=== PATIENT | female | born 1960 | race Caucasian/White ===

== ENCOUNTER 2018-10-21 09:24 | Inpatient (IN) ==
[2018-10-21] MEDS ORDERED: SODIUM CHLORIDE 0.9% 1000ML 2,000 ML IV SCH (09:45)
--- NOTE | 2018-10-21 09:53 | XRay Report ---
XR chest 1V portable HISTORY: Atypical Chest Pain COMPARISON: None. FINDINGS: Old, healed right-sided rib fractures. The lungs are clear. The heart is normal in size. No pleural effusions. No pneumothorax. IMPRESSION: No acute process. Electronically signed by: Alli Loomis M.D. 10/21/2018 9:52 AM
[2018-10-21 10:02] LABS: Hematocrit (blood only) 38.3 % (37-47); Hemoglobin 12.8 g/dL (12.0-16.0); Mean Corpuscular Hgb Conc 33.4 g/dL (32-36); Mean Corpuscular Volume 92.7 fL (80-100); Mean Platelet Volume 8.7 fL (7.4-10.4); Platelet Count 808 K/uL (130-400); RDW Coefficient of Variation 13.4 % (11.5-14.5); RDW Standard Deviation 45.2 fL (36.4-46.3); Red Blood Count 4.13 M/uL (4.2-5.4); White Blood Count 23.89 K/uL (4.8-10.8)
[2018-10-21 10:14] LABS: INR 1.2 (0.9-1.1); Prothrombin Time 12.4 Seconds (9.0-12.0)
[2018-10-21] MEDS ORDERED: ACETAMINOPHEN 1,000 MG/100 ML VIAL IV STA (10:20)
[2018-10-21] MEDS ORDERED: FAMOTIDINE 20MG IV PUSH 20 MG/5 ML SYR IV STA (10:20)
[2018-10-21] MEDS ORDERED: PROCHLORPERAZINE 2 ML IV ONE (10:20)
[2018-10-21 10:22] LABS: Basophils # (auto) 0.03 K/uL (0-0.2); Basophils % (auto) 0.1 %; Eosinophils # (auto) 0.02 K/uL (0-0.5); Eosinophils % (auto) 0.1 %; Immature Granulocytes # (auto) 0.38 K/uL (0.00-0.02); Immature Granulocytes % (auto) 1.6 %; Lymphocytes # (auto) 2.27 K/uL (1.2-3.4); Lymphocytes % (auto) 9.5 %; Monocytes # (auto) 0.62 K/uL (0.11-0.59); Monocytes % (auto) 2.6 %; Neutrophils # (auto) 20.57 K/uL (1.4-6.5); Neutrophils % (auto) 86.1 %
[2018-10-21 10:23] LABS: Alanine Aminotransferase 13 U/L (12-78); Aspartate Aminotransferase 10 U/L (15-37); BUN Creatinine Ratio 15.8 (10-20); Bilirubin Direct < 0.1 mg/dl (0-0.2); Blood Urea Nitrogen 25 mg/dl (7-18); Calcium 9.6 mg/dl (8.5-10.1); Carbon Dioxide 24 mmol/L (21-32); Chloride 105 mmol/L (98-107); Creatinine Clr Calc Pharmacy 38.4 ml/min; Est GFR (African American) 40.5; Est GFR (Non-African American) 34.9; Glucose 154 mg/dl (70-99); Magnesium 2.3 mg/dl (1.8-2.4); Potassium 4.8 mmol/L (3.5-5.1); Sodium 140 mmol/L (136-145)
[2018-10-21 10:32] LABS: Albumin Globulin Ratio 0.6 (0.9-2); Alkaline Phosphatase 83 U/L (45-117); Bilirubin,Total 0.4 mg/dl (0.2-1); Phosphorus 5.2 mg/dl (2.5-4.9); Troponin I 0.034 ng/ml (0-0.045)
[2018-10-21] MEDS ORDERED: IOVERSOL 100ml IV PRN (10:59)
--- NOTE | 2018-10-21 11:52 | CT Scan Report ---
CT SCAN OF THE ABDOMEN AND PELVIS WITH IV CONTRAST CLINICAL HISTORY: Generalized abdominal pain. COMPARISON STUDY: No priors. TECHNIQUE: Following the IV administration of 94 cc of Optiray 320, CT scan of the abdomen and pelvi s is performed from the lung bases to the proximal femora. Images are reviewed in the axial, sagittal , and coronal planes. IV contrast was administered without complication. A dose lowering technique wa s utilized adhering to the principles of ALARA. FINDINGS: Lung bases: The heart is normal in size and without pericardial effusion. Emphysematous change is not ed. Patchy ground glass consolidation and atelectasis are identified at the left lung base. The right lung base is clear. No pleural effusion is identified. There is a small hiatal hernia. Circumferenti al wall thickening is suggested in the distal esophagus. Intraluminal thrombus is noted within the di stal descending thoracic aorta. Liver: The contrast-enhanced liver is mildly enlarged measuring 19 cm in length. The liver is otherwi se normal in contour and attenuation. There is no intrahepatic biliary ductal dilatation. The hepatic veins and portal veins are patent. Gallbladder: Unremarkable. Spleen: Normal in size and attenuation. Pancreas: Unremarkable. Adrenal glands: There is mild nodularity of the adrenal glands. Kidneys: The contrast enhanced kidneys are normal in size and without hydronephrosis. The kidneys enh ance symmetrically. 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 Abdominal vasculature: The abdominal aorta is normal in course and caliber noting mild to moderate at herosclerotic calcification. Bowel: There is mild colonic fecal retention. No bowel obstruction is seen. The appendix is well-vis ualized and normal. Peritoneum: There is no intraperitoneal free air or abdominal ascites. Lymphadenopathy: None. Pelvic viscera: Although decompressed, bladder wall thickening suggested. The uterus and adnexa are n ormal as imaged. Skeletal structures: A 3 cm sclerotic lesion is identified within the right ilium on image #[id number]. IMPRESSION: 1. There is patchy groundglass consolidation and atelectasis at the left lung base. Correlate clinica lly for evidence of a mild infectious/inflammatory pneumonitis. 2. Emphysema. 3. Although the bladder is decompressed the wall appears circumferentially thickened. Correlation wit h urinalysis will be required. 4. There is a 3 cm sclerotic lesion identified within the right ilium. This is pathologically indeter minant, and a metastatic lesion could have this appearance. Correlation with the patient's oncologica l history will be essential. If not recently performed consider mammography in follow-up. Nuclear bon e scan could also be considered. 5. There is a small hiatal hernia with circumferential wall thickening suggested in the distal esopha orlando. Correlate clinically for evidence of esophagitis. 6. Additional findings as above. Electronically signed by: Nicholas Desir M.D. 10/21/2018 11:50 AM
[2018-10-21] MEDS ORDERED: DOXYCYCLINE HYCLATE 100 MG in DEXTROSE 5% 100 ML IV STA (11:56)
[2018-10-21] MEDS ORDERED: VANCOMYCIN CONSULT ACTIVE PRN ×2 (11:56→16:36)
[2018-10-21] MEDS ORDERED: VANCOMYCIN HCL 1,500 MG in SODIUM CHLORIDE 0.9% 500 ML IV ONE (11:56)
[2018-10-21] MEDS ORDERED: CEFEPIME 2,000 MG/20 ML VIAL IV STA (11:56)
--- NOTE | 2018-10-21 14:14 | History & Physical Report ---
Date of Service October 21, 2018 Assessment & Plan (1) Pneumonia: Left lower lobe. Healthcare associated. Obtain sputum culture if sputum is produced. Continue cefepime and vancomycin Present on Admission?: Yes (2) COPD exacerbation: IV steroids. Nebulizer treatments. Treat pneumonia Present on Admission?: Yes (3) Acute kidney injury: IV fluids. Monitor urine output. Serial lab studies Present on Admission?: Yes (4) Acute gastritis: Pepcid and Carafate treatment. Present on Admission?: Yes (5) Admitted to substance misuse detoxification center: Recent detoxification from Xanax (6) Drug dependence: Benzodiazepine dependence (7) DVT prophylaxis: Lovenox subcu History of Present Illness Chief Complaint: Productive cough, shortness of breath, wheezing Primary Care Provider: NO PCP 57-year-old female smoker with COPD. She was in route from a substance abuse treatment facility to [place] when she developed worsening shortness of breath and weakness. She has had a productive cough for several days and worsening wheezing and shortness of breath. She also has some nausea and vomiting for several days. No hematemesis melena or hematochezia. Chest x-ray is unremarkable but chest CT scan reveals evidence of left lower lobe pneumonia. This probably is healthcare associated pneumonia since she was recently detox facility. White count is 23,000. She is somewhat volume depleted with creatinine 1.6. She recently was on Levaquin for a sinus infection and ear infection. She has been started on cefepime and vancomycin. Sputum culture will be obtained. IV fluids will be administered to correct the acute kidney injury. She is admitted for further evaluation and treatment. Allergies Allergy/AdvReac Type Severity Reaction Status Date / Time Penicillins Allergy Hives Unverified 10/21/18 10:36 Home Medications Home Medications Medication Instructions Recorded Confirmed Type albuterol sulfate [Ventolin HFA] 1 puff INHALATION Q6H PRN 10/21/18 10/21/18 History cholecalciferol (vitamin D3) 2,000 unit PO BID 10/21/18 10/21/18 History citalopram [Celexa] 40 mg PO QAM 10/21/18 10/21/18 History clonidine HCl 0.1 mg PO HS 10/21/18 10/21/18 History cyclobenzaprine 10 mg PO DAILY 10/21/18 10/21/18 History folic acid 1 mg PO DAILY 10/21/18 10/21/18 History ipratropium-albuterol 3 ml INHALATION DAILY PRN 10/21/18 10/21/18 History levofloxacin 500 mg PO DAILY PRN 10/21/18 10/21/18 History menthol [Bengay Cold Therapy] 1 % TOPICAL DIRECTED PRN 10/21/18 10/21/18 History prazosin 2 mg PO QAM 10/21/18 10/21/18 History prednisone 50 mg PO DAILY 10/21/18 10/21/18 History thiamine HCl (vitamin B1) 100 mg PO DAILY 10/21/18 10/21/18 History trazodone 100 mg PO HS 10/21/18 10/21/18 History Past Med/Surg History Medical History Admitted to substance misuse detoxification center Drug dependence (Chronic) Family History Other No significant family history Social History marital status: Single Current Living Situation: Rehab Current Living Situation Comment: In transit to [facility] in [place] (10/21/18) current occupational status: unemployed Feels Safe at Home: Yes Smoking Status: Current some day smoker Review of Systems Review of Systems: Constitutional-no fever or chills ENT-no blurred vision, no double vision, no epistaxis, no sore throat Respiratory-productive cough, shortness of breath, wheezing. No heme Cardiac-no palpitations, no chest pain, no syncope GI-epigastric discomfort, nausea, vomiting. No hematemesis melena or hematochezia -no urinary retention, no urinary incontinence, no dysuria, no hematuria Musculoskeletal-no joint pain, no muscle tenderness Skin-no bruising, no rashes, no pruritus Neuro-no isolated weakness, no paresthesia, no weakness Psych-no depression, no anxiety Physical Exam Physical Exam: General-alert and oriented x3, no fevers, no chills HEENT-head atraumatic and normocephalic, TMs intact bilaterally, pupils equal and reactive to light, extraocular muscles intact Neck-no lymphadenopathy or thyromegaly, trachea midline Chest-midline rhonchi. Bilateral expiratory wheezes. No dullness to percussion Cardiac-regular rate and rhythm, normal S1 and S2, no murmurs Abdomen-normal bowel sounds, no hepatosplenomegaly. Nondistended. Mild epigastric tenderness Extremities-no cyanosis, clubbing, or edema Neuro-cranial nerves II through XII intact, motor and sensory function within normal limits, strength symmetrical 5/5, no focal deficits Psych-normal affect, normal mood Results & Data Vital Signs (Past 12 Hours) Vital Signs Temp Pulse Pulse Resp BP BP Pulse Ox 10/21/18 12:12 88 123/71 10/21/18 11:22 87 16 94/67 L 97 10/21/18 10:18 86 16 87/54 L 10/21/18 10:03 93 H 16 64/44 L 96 10/21/18 09:43 96 10/21/18 09:37 36.7 C 104 H 16 71/50 L 95 Laboratory Results 10/21/18 09:50 10/21/18 09:50 PG Care Time/CCT Total # of Minutes Spent Total Time Spent with Patient: Total time spent is greater than 50% in coordination of care (as documented) at patient's floor/unit and/or counseling patient: (1) Pneumonia Laterality: left Lung location: lower lobe of lung Pneumonia type: due to unspecified organism Qualified Code(s): J18.1 - Lobar pneumonia, unspecified organism
--- NOTE | 2018-10-21 15:16 | Emergency Department Note ---
Entered by Jennifer Billings acting as a scribe for History of Present Illness General Chief complaint: Illness Stated complaint: none Time Seen by Provider: 10/21/18 09:28 Source: patient and EMS History of Present Illness Onset (ago): week(s) 1 Location: abdomen Pain Consistency: + other (episode) Quality: + other (vomiting) Associated symptoms: + denies other symptoms (fever) and + other (abdominal pain, loss of appetite, decreased fluid intake) The patient is a 57 year old female with a history of substance dependence that is presenting to the Emergency Room with complaints of an episode of vomiting that occurred this morning. The patient was brought to the ED via EMS. EMS states that the patient was in route to a long term house in [place] following [facility]. EMS reports that the patient started vomiting and sweating in the van and that the residential recycle driver refused to continue until the patient sought medical care. EMS notes that the patient stated that she had not had any food or drink today prior to her trip. EMS states that the patient has reportedly not handled detoxification well. The patient reports that was in rehab for Xanax dependence. She states that she entered rehab on 09/25/18. She reports that she was detoxing prior to entering rehab. She states that she has had abdominal pain for the past week. The patient states that she has not been eating or drinking normally secondary to the abdominal pain. She notes that she has had an ear infection and sinus infection recently. She states that she is taking Levaquin and notes that she took some this morning as prescribed. She denies any fever currently. Home Medications Home Medications Medication Instructions Recorded Confirmed Type albuterol sulfate [Ventolin HFA] 1 puff INHALATION Q6H PRN 10/21/18 10/21/18 History cholecalciferol (vitamin D3) 2,000 unit PO BID 10/21/18 10/21/18 History citalopram [Celexa] 40 mg PO QAM 10/21/18 10/21/18 History clonidine HCl 0.1 mg PO HS 10/21/18 10/21/18 History cyclobenzaprine 10 mg PO DAILY 10/21/18 10/21/18 History folic acid 1 mg PO DAILY 10/21/18 10/21/18 History ipratropium-albuterol 3 ml INHALATION DAILY PRN 10/21/18 10/21/18 History levofloxacin 500 mg PO DAILY PRN 10/21/18 10/21/18 History menthol [Bengay Cold Therapy] 1 % TOPICAL DIRECTED PRN 10/21/18 10/21/18 History prazosin 2 mg PO QAM 10/21/18 10/21/18 History prednisone 50 mg PO DAILY 10/21/18 10/21/18 History thiamine HCl (vitamin B1) 100 mg PO DAILY 10/21/18 10/21/18 History trazodone 100 mg PO HS 10/21/18 10/21/18 History Allergies Allergy/AdvReac Type Severity Reaction Status Date / Time Penicillins Allergy Hives Unverified 10/21/18 10:36 Past Med/Surg History Medical History Acute gastritis (Acute) Acute kidney injury (Acute) COPD exacerbation (Acute) Pneumonia (Acute) Admitted to substance misuse detoxification center Drug dependence (Chronic) Family History Other No significant family history Social History Preferred Language: Romansh Communication Ability: Effective Line Repairer Required: No Beliefs That Will Affect Care: None marital status: Single Current Living Situation: Homeless [facility] [place] [facility] current occupational status: unemployed Other Information That Helps Us Care for You: No Feels Safe at Home: Yes Safety Concerns: Feels Safe At This Time Smoking Status: Current every day smoker Tobacco Type: cigarettes Cigarettes Per Day: 20 Do You Dip or Chew Tobacco: No Second Hand Exposure: No Tobacco Cessation Education Requested by Patient: No Hx Alcohol Use: No Hx Substance Use: No Review of Systems See HPI for pertinent positives & negatives. and A total of 10 systems reviewed and were otherwise negative Physical Exam Vital Signs Vital Signs - 24 hr 10/21/18 09:37 10/21/18 09:43 10/21/18 10:03 Temperature 36.7 C Temperature Source Oral Sepsis Recent Fever Within 48 Hours No Sepsis New/Unexplained Change in Mental Status No Sepsis Action Taken by Nursing No Action Required Pulse Rate 104 H Pulse Rate [Apical] 93 H Respiratory Rate 16 16 Blood Pressure 71/50 L Blood Pressure [Left Arm] 64/44 L Blood Pressure Mean 57 Blood Pressure Mean [Left Arm] 50 Pulse Oximetry 95 96 96 Oxygen Delivery Method Room Air Room Air Room Air 10/21/18 10:18 10/21/18 11:22 10/21/18 12:12 Temperature Temperature Source Sepsis Recent Fever Within 48 Hours Sepsis New/Unexplained Change in Mental Status Sepsis Action Taken by Nursing Pulse Rate Pulse Rate [Apical] 86 87 88 Respiratory Rate 16 16 Blood Pressure Blood Pressure [Left Arm] 87/54 L 94/67 L 123/71 Blood Pressure Mean Blood Pressure Mean [Left Arm] 65 76 88 Pulse Oximetry 97 Oxygen Delivery Method Room Air 10/21/18 14:00 Temperature Temperature Source Sepsis Recent Fever Within 48 Hours Sepsis New/Unexplained Change in Mental Status Sepsis Action Taken by Nursing Pulse Rate Pulse Rate [Apical] 85 Respiratory Rate 16 Blood Pressure Blood Pressure [Left Arm] 116/70 Blood Pressure Mean Blood Pressure Mean [Left Arm] 85 Pulse Oximetry 97 Oxygen Delivery Method Room Air GENERAL: Awake, alert, fatigued-ill appearing, in no distress HENT: Normocephalic, atraumatic. Oropharynx with dry mucous membranes and otherwise unremarkable. EYES: Normal conjunctiva. Sclera non-icteric. EOMI. No nystamgus. PEARRL. NECK: Supple. No nuchal rigidity. FROM. No JVD. RESPIRATORY: Clear to auscultation. CARDIAC: Regular rate, normal rhythm. Extremities warm and well perfused. Pulses equal. ABDOMEN: Soft, non-distended. Generalized abdominal tenderness. No rebound or guarding. No masses. RECTAL: Deferred. MUSCULOSKELETAL: Chest examination reveals no tenderness. The back is symmetrical on inspection without obvious abnormality. There is no CVA tenderness to palpation. No joint edema. LOWER EXTREMITIES: Calves are equal size bilaterally and non-tender. No edema. No discoloration. NEURO: Normal sensorium. No sensory or motor deficits noted. SKIN: No rash or jaundice noted. Course 0935:The patient was evaluated in room B11B. A complete history and physical examination was performed. 1244: I discussed the patients case with ELENA Reed, who will evaluate the patient for further management and care. 1300: Upon reevaluation, the patient is resting comfortably. I discussed laboratory and radiographic results with the patient. She verbalized agreement of the treatment plan. The patient will be evaluated for further management and care. Consultations Consultation #1: I discussed the patients case with Dr. Schrader, [facility], who will evaluate the patient for further management and care. Time: 12:44 Administered Medications Albuterol (Duoneb) 3 ml NEB QIDR ROSLYN Stop: 11/20/18 16:35 Last Admin: 10/21/18 16:54 Dose: 3 ml Documented by: [id number] Sodium Chloride (Nss 1000ml) 1,000 mls @ 100 mls/hr IV .Q10H ROSLYN Stop: 11/20/18 16:59 Last Admin: 10/21/18 16:50 Dose: 100 mls/hr Documented by: [id number] Ioversol (Optiray 320 100ml) 95 ml IV ONCE PRN PRN Reason: Interaction Checking Stop: 10/25/18 10:58 Last Admin: 10/21/18 10:59 Dose: 95 ml Documented by: [id number] Discontinued Medications Sodium Chloride (Nss 1000ml) 2,000 mls @ 999 mls/hr IV .Q2H1M ROSLYN Stop: 10/21/18 11:45 Last Infusion: 10/21/18 12:00 Dose: 0 mls/hr Documented by: [id number] Admin: 10/21/18 09:40 Dose: 999 mls/hr Documented by: [id number] Famotidine (Pepcid 20mg Iv Push) 20 mg in 5 mls @ 2.5 mls/min IV NOW STA Stop: 10/21/18 10:21 Last Admin: 10/21/18 10:43 Dose: 2.5 mls/min Documented by: [id number] Acetaminophen (Ofirmev) 1,000 mg in 100 mls @ 400 mls/hr IV NOW STA Stop: 10/21/18 10:34 Last Infusion: 10/21/18 10:58 Dose: 0 mls/hr Documented by: [id number] Admin: 10/21/18 10:43 Dose: 400 mls/hr Documented by: [id number] Prochlorperazine (Compazine) 2 mls @ 1 mls/min IV ONE ONE Stop: 10/21/18 10:21 Last Admin: 10/21/18 10:43 Dose: 1 mls/min Documented by: [id number] Doxycycline Hyclate 100 mg/ (Dextrose) 110 mls @ 50 mls/hr IV NOW STA Stop: 10/21/18 14:07 Last Infusion: 10/21/18 14:40 Dose: 0 mls/hr Documented by: [id number] Admin: 10/21/18 12:23 Dose: 50 mls/hr Documented by: [id number] Vancomycin HCl 1,500 mg/ (Sodium Chloride) 530 mls @ 200 mls/hr IV NOW ONE; Protocol Stop: 10/21/18 14:34 Last Infusion: 10/21/18 15:14 Dose: 0 mls/hr Documented by: [id number] Admin: 10/21/18 12:23 Dose: 200 mls/hr Documented by: [id number] Cefepime HCl (Maxipime) 2,000 mg in 20 mls @ 5 mls/min IV NOW STA; Protocol Stop: 10/21/18 11:59 Last Admin: 10/21/18 12:09 Dose: 5 mls/min Documented by: [id number] Medical Decision Making Differential Diagnosis Differential diagnosis: Etiologies such as appendicitis, diverticulitis, PUD, biliary pathology, UTI, pancreatitis, obstruction, mesenteric ischemia, aortic pathology, infections, inflammatory bowel disease, renal colic, as well as others were entertained. Medical Records Attestation: I reviewed the patient's medical records. Home Medications Current Medication List: was personally reviewed by me Laboratory Data Attestation: I reviewed the patient's lab results. Result diagrams: 10/21/18 09:50 10/21/18 09:50 Lab Results 10/21/18 10/21/18 10/21/18 Range/Units 09:50 09:50 09:50 WBC 23.89 H (4.8-10.8) K/uL RBC 4.13 L (4.2-5.4) M/uL Hgb 12.8 (12.0-16.0) g/dL Hct 38.3 (37-47) % MCV 92.7 (80-100) fL MCH 31.0 (25-34) pg MCHC 33.4 (32-36) g/dL RDW Std Deviation 45.2 (36.4-46.3) fL RDW Coeff of Uriah 13.4 (11.5-14.5) % Plt Count 808 H (130-400) K/uL MPV 8.7 (7.4-10.4) fL Immature Gran % (Auto) 1.6 % Neut % (Auto) 86.1 % Lymph % (Auto) 9.5 % Dyer % (Auto) 2.6 % Eos % (Auto) 0.1 % Baso % (Auto) 0.1 % Immature Gran # (Auto) 0.38 H (0.00-0.02) K/uL Neut # (Auto) 20.57 H (1.4-6.5) K/uL Lymph # (Auto) 2.27 (1.2-3.4) K/uL Dyer # (Auto) 0.62 H (0.11-0.59) K/uL Eos # (Auto) 0.02 (0-0.5) K/uL Baso # (Auto) 0.03 (0-0.2) K/uL PT 12.4 H (9.0-12.0) Seconds INR 1.2 H (0.9-1.1) Sodium 140 (136-145) mmol/L Potassium 4.8 (3.5-5.1) mmol/L Chloride 105 (98-107) mmol/L Carbon Dioxide 24 (21-32) mmol/L Anion Gap 11.0 (3-11) BUN 25 H (7-18) mg/dl Creatinine 1.60 H (0.6-1.2) mg/dl Est Cr Clr Drug Dosing 38.4 ml/min Est GFR ( Amer) 40.5 Est GFR (Non-Af Amer) 34.9 BUN/Creatinine Ratio 15.8 (10-20) Glucose 154 H (70-99) mg/dl Lactate (0.4-2.0) mmol/L Calcium 9.6 (8.5-10.1) mg/dl Phosphorus 5.2 H (2.5-4.9) mg/dl Magnesium 2.3 (1.8-2.4) mg/dl Total Bilirubin 0.4 (0.2-1) mg/dl Direct Bilirubin < 0.1 (0-0.2) mg/dl AST 10 L (15-37) U/L ALT 13 (12-78) U/L Alkaline Phosphatase 83 (45-117) U/L Troponin I 0.034 (0-0.045) ng/ml Total Protein 8.0 (6.4-8.2) gm/dl Albumin 3.0 L (3.4-5.0) gm/dl Globulin 5.0 H (2.5-4.0) gm/dl Albumin/Globulin Ratio 0.6 L (0.9-2) Lipase 79 (73-393) U/L TSH 3.360 (0.300-4.500) uIu/ml 10/21/18 Range/Units 10:30 WBC (4.8-10.8) K/uL RBC (4.2-5.4) M/uL Hgb (12.0-16.0) g/dL Hct (37-47) % MCV (80-100) fL MCH (25-34) pg MCHC (32-36) g/dL RDW Std Deviation (36.4-46.3) fL RDW Coeff of Uriah (11.5-14.5) % Plt Count (130-400) K/uL MPV (7.4-10.4) fL Immature Gran % (Auto) % Neut % (Auto) % Lymph % (Auto) % Dyer % (Auto) % Eos % (Auto) % Baso % (Auto) % Immature Gran # (Auto) (0.00-0.02) K/uL Neut # (Auto) (1.4-6.5) K/uL Lymph # (Auto) (1.2-3.4) K/uL Dyer # (Auto) (0.11-0.59) K/uL Eos # (Auto) (0-0.5) K/uL Baso # (Auto) (0-0.2) K/uL PT (9.0-12.0) Seconds INR (0.9-1.1) Sodium (136-145) mmol/L Potassium (3.5-5.1) mmol/L Chloride (98-107) mmol/L Carbon Dioxide (21-32) mmol/L Anion Gap (3-11) BUN (7-18) mg/dl Creatinine (0.6-1.2) mg/dl Est Cr Clr Drug Dosing ml/min Est GFR ( Amer) Est GFR (Non-Af Amer) BUN/Creatinine Ratio (10-20) Glucose (70-99) mg/dl Lactate 2.0 (0.4-2.0) mmol/L Calcium (8.5-10.1) mg/dl Phosphorus (2.5-4.9) mg/dl Magnesium (1.8-2.4) mg/dl Total Bilirubin (0.2-1) mg/dl Direct Bilirubin (0-0.2) mg/dl AST (15-37) U/L ALT (12-78) U/L Alkaline Phosphatase (45-117) U/L Troponin I (0-0.045) ng/ml Total Protein (6.4-8.2) gm/dl Albumin (3.4-5.0) gm/dl Globulin (2.5-4.0) gm/dl Albumin/Globulin Ratio (0.9-2) Lipase (73-393) U/L TSH (0.300-4.500) uIu/ml Imaging Data Radiologist's Impression: Radiology results as stated below per my review and the radiologist's interpretation: XR chest 1V portable HISTORY: Atypical Chest Pain COMPARISON: None. FINDINGS: Old, healed right-sided rib fractures. The lungs are clear. The heart is normal in size. No pleural effusions. No pneumothorax. IMPRESSION: No acute process. Electronically signed by: Alli Loomis M.D. 10/21/2018 9:[address] SCAN OF THE ABDOMEN AND PELVIS WITH IV CONTRAST CLINICAL HISTORY: Generalized abdominal pain. COMPARISON STUDY: No priors. TECHNIQUE: Following the IV administration of 94 cc of Optiray 320, CT scan of the abdomen and pelvis is performed from the lung bases to the proximal femora. Images are reviewed in the axial, sagittal, and coronal planes. IV contrast was administered without complication. A dose lowering technique was utilized adhering to the principles of ALARA. FINDINGS: Lung bases: The heart is normal in size and without pericardial effusion. Emphysematous change is noted. Patchy ground glass consolidation and atelectasis are identified at the left lung base. The right lung base is clear. No pleural e ffusion is identified. There is a small hiatal hernia. Circumferential wall thickening is suggested in the distal esophagus. Intraluminal thrombus is noted within the distal descending thoracic aorta. Liver: The contrast-enhanced liver is mildly enlarged measuring 19 cm in length. The liver is otherwise normal in contour and attenuation. There is no intrahepatic biliary ductal dilatation. The hepatic veins and portal veins are patent. Gallbladder: Unremarkable. Spleen: Normal in size and attenuation. Pancreas: Unremarkable. Adrenal glands: There is mild nodularity of the adrenal glands. Kidneys: The contrast enhanced kidneys are normal in size and without hydronephrosis. The kidneys enhance symmetrically. 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 Abdominal vasculature: The abdominal aorta is normal in course and caliber noting mild to moderate atherosclerotic calcification. Bowel: There is mild colonic fecal retention. No bowel obstruction is seen. The appendix is well-visualized and normal. Peritoneum: There is no intraperitoneal free air or abdominal ascites. Lymphadenopathy: None. Pelvic viscera: Although decompressed, bladder wall thickening suggested. The uterus and adnexa are normal as imaged. Skeletal structures: A 3 cm sclerotic lesion is identified within the right ilium on image #217. IMPRESSION: 1. There is patchy groundglass consolidation and atelectasis at the left lung base. Correlate clinically for evidence of a mild infectious/inflammatory pneumonitis. 2. Emphysema. 3. Although the bladder is decompressed the wall appears circumferentially thickened. Correlation with urinalysis will be required. 4. There is a 3 cm sclerotic lesion identified within the right ilium. This is pathologically indeterminant, and a metastatic lesion could have this appearance. Correlation with the patient's oncological history will be essential. If not recently performed consider mammography in follow-up. Nuclear bone scan could also be considered. 5. There is a small hiatal hernia with circumferential wall thickening suggested in the distal esophagus. Correlate clinically for evidence of esophagitis. 6. Additional findings as above. Electronically signed by: Nicholas Desir M.D. 10/21/2018 11:50 AM ECG Data Attestation: I personally reviewed and interpreted this ECG as follows: Indication: abdominal pain Rate (beats per minute): 104 Rhythm: sinus tachycardia Findings: + other (normal axis); no ST depression, no ST elevation and no acute ischemic change Blood Pressure Blood Pressure Findings: Low blood pressure MDM Narrative The patient is a pleasant 57-year-old woman with a past medical history of benzodiazepine abuse who presents emergency department after becoming near syncopal with nausea and vomiting in route to a long term house in [place] af r completing a month-long rehab program per [facility]. Of note the patient was recently and is currently still on Levaquin for a sinus infection. On arrival patient is ill-appearing, afebrile with heart rate in the 100s and hypotensive with systolic blood pressure in the 60s of though she is mentating normally. The patient was fluid responsive with IV fluid hydration. EKG without acute ischemia. CXR negative for acute process. WBC 23K. Thrombocytosis with platelets in the 800s. H/H wnl. Lactate 2.0, within normal limits and chemistry without acidosis. LFTs unremarkable. Troponin negative. CT the abdomen pelvis performed and demonstrates basilar groundglass opacities that are suspicious for pneumonia in the setting of the patient's cough and recent sinus infection. Blood cultures were drawn and patient was ordered for broad-spectrum antibiotics with Cefepime, Vancomycin, and Doxycycline, given she has been on Levaquin. Patient re-evaluated and BP continued to remain improved/stable 110-120s/60-70s. Case was discussed with Dr. Schrader, [facility] hospitalist, who evaluate the patient for admission. Impression & Plan Pneumonia, Hypotension, Leukocytosis, Thrombocytosis Critical Care Time Critical Care Time: Yes Total Critical Care Time: 60 I have personally spent greater than 60 minutes of critical care time in the direct management of this patient. This includes bedside care, interpretation of diagnostic studies, and testing, discussion with consultants, patient, and family members, and other required patient management activities. This 60 minutes is in excess of all separately billable procedures. Discharge Plan Visit Data *Final* Discharge Date/Time: 10/21/18 16:23 Chief Complaint: Illness Stated Complaint: none ED Provider: Christopher Mireles Discharge Problem: Pneumonia, Hypotension, Leukocytosis, Thrombocytosis Patient Disposition: Admitted As Inpatient Discharge Instructions Interventions: ED Discharge Assessment Last Done: 10/21/18 16:23 Discharge Problem: Pneumonia Qualifiers: Pneumonia type: due to unspecified organism Laterality: left Lung location: lower lobe of lung Qualified Code(s): J18.1 - Lobar pneumonia, unspecified organism Hypotension Qualifiers: Hypotension type: unspecified hypotension type Qualified Code(s): I95.9 - Hypotension, unspecified Leukocytosis Qualifiers: Leukocytosis type: unspecified Qualified Code(s): D72.829 - Elevated white blood cell count, unspecified The scribe's documentation has been prepared under my direction and personally reviewed by me in its entirety. I confirm that the note above accurately reflects all work, treatment, procedures, and medical decision making performed by me.
[2018-10-21 15:35] LABS: Appearance Urine Clear (Clear); Bilirubin Urine Negative (Negative); Blood Urine Negative (Negative); Color Urine Yellow; Glucose Urine UA Negative (Negative); Ketones Urine Trace (Negative); Leukocyte Esterase Urine Negative (Negative); Nitrite Urine Negative (Negative); Protein Urine Negative (Negative); Specific Gravity Urine 1.043 (1.000-1.030); Urobilinogen Urine Negative (Negative)
[2018-10-21] MEDS ORDERED: ONDANSETRON INJ 2 MG/ML 2 ML VIAL IV PRN (16:36)
[2018-10-21] MEDS ORDERED: ALUMINUM/MAGNESIUM SUSP 30 ML UDC PO PRN (16:36)
[2018-10-21] MEDS: SODIUM CHLORIDE 0.9% 1000ML 1,000 ML IV SCH (16:50)
[2018-10-21] MEDS: ALBUT/IPRATROP 3MG/0.5MG NEB 3 ML VIAL NEB SCH ×2 (16:54→19:38)
[2018-10-21] MEDS: methylPREDNISolone 40 MG in SYRINGE 0 ML IV SCH (17:42)
[2018-10-21] MEDS: SUCRALFATE 1 GM/10 ML UDC PO SCH ×2 (20:02→20:04)
[2018-10-21] MEDS: ENOXAPARIN INJ 40 MG/0.4 ML SYR SQ SCH (20:02)
[2018-10-21] MEDS: CEFEPIME 1,000 MG in SYRINGE 0 ML IV SCH (20:10)
[2018-10-21] MEDS: ACETAMINOPHEN 325 MG TAB PO PRN (20:10)
[2018-10-21] MEDS: CHOLECALCIFEROL 1,000 UNITS TAB PO SCH (21:21)
[2018-10-21] MEDS: FAMOTIDINE 20 MG in SYRINGE 3 ML IV SCH (21:21)
[2018-10-21] MEDS: cloNIDine HCl 0.1 MG TAB PO SCH (21:21)
[2018-10-21] MEDS ORDERED: NICOTINE 14 MG/24 HR PATCH TD ONE (22:45)
[2018-10-22] MEDS: methylPREDNISolone 40 MG in SYRINGE 0 ML IV SCH ×3 (01:47→17:22)
[2018-10-22] MEDS: SODIUM CHLORIDE 0.9% 1000ML 1,000 ML IV SCH ×3 (01:56→20:59)
[2018-10-22] MEDS ORDERED: VANCOMYCIN HCL 1,250 MG in SODIUM CHLORIDE 0.9% 250 ML IV SCH (04:00)
[2018-10-22] MEDS: CEFEPIME 1,000 MG in SYRINGE 0 ML IV SCH ×2 (04:50→11:18)
[2018-10-22] MEDS: ACETAMINOPHEN 325 MG TAB PO PRN ×3 (05:32→16:05)
[2018-10-22] MEDS: ALBUT/IPRATROP 3MG/0.5MG NEB 3 ML VIAL NEB SCH ×4 (07:05→19:49)
[2018-10-22] MEDS: CHOLECALCIFEROL 1,000 UNITS TAB PO SCH ×2 (07:19→20:18)
[2018-10-22] MEDS: CYCLOBENZAPRINE HCL 10 MG TAB PO SCH (07:20)
[2018-10-22] MEDS: CITALOPRAM 40 MG TAB PO SCH (07:20)
[2018-10-22] MEDS: SUCRALFATE 1 GM/10 ML UDC PO SCH ×4 (07:20→20:16)
[2018-10-22] MEDS: FOLIC ACID 1 MG TAB PO SCH (07:21)
[2018-10-22 07:36] LABS: Basophils # (auto) 0.01 K/uL (0-0.2); Basophils % (auto) 0.1 %; Hematocrit (blood only) 32.4 % (37-47); Hemoglobin 10.5 g/dL (12.0-16.0); Immature Granulocytes # (auto) 0.06 K/uL (0.00-0.02); Immature Granulocytes % (auto) 0.5 %; Lymphocytes # (auto) 1.32 K/uL (1.2-3.4); Lymphocytes % (auto) 11.5 %; Mean Corpuscular Hgb Conc 32.4 g/dL (32-36); Mean Corpuscular Volume 91.8 fL (80-100); Mean Platelet Volume 8.9 fL (7.4-10.4); Monocytes # (auto) 0.13 K/uL (0.11-0.59); Monocytes % (auto) 1.1 %; Neutrophils # (auto) 9.97 K/uL (1.4-6.5); Neutrophils % (auto) 86.8 %; Platelet Count 693 K/uL (130-400); RDW Coefficient of Variation 13.5 % (11.5-14.5); RDW Standard Deviation 44.7 fL (36.4-46.3); Red Blood Count 3.53 M/uL (4.2-5.4); White Blood Count 11.49 K/uL (4.8-10.8)
[2018-10-22 07:50] LABS: BUN Creatinine Ratio 23.6 (10-20); Calcium 9.2 mg/dl (8.5-10.1); Creatinine Clr Calc Pharmacy 54.8 ml/min; Est GFR (African American) 62.3; Est GFR (Non-African American) 53.7
[2018-10-22] MEDS: FAMOTIDINE 20 MG in SYRINGE 3 ML IV SCH ×2 (08:58→20:22)
[2018-10-22] MEDS ORDERED: PRAZOSIN HCL 1 MG CAP PO SCH (09:00)
[2018-10-22] MEDS ORDERED: NICOTINE 14 MG/24 HR PATCH TD SCH (09:00)
--- NOTE | 2018-10-22 09:50 | Pharmacy Report ---
Pharmacy Abx Initial Consult - Date of Service October 22, 2018 - Pharmacy Dosing Scope Date of Consult: 10/21/18 Consultation requested by: Dr. Schrader Pharmacy is consulted to initiate Vancomycin IV dosing therapy, order appropriate labs and adjust drug dose/frequency. - Subjective The patient is a 57 year old F admitted on 10/21/18 14:14. - Objective Height: 5 ft 5 in Weight: 75 kg Vital Signs (Past 12hrs): Vital Signs Temp Pulse Pulse Pulse Resp BP Pulse Ox 10/22/18 07:07 36.6 C 71 16 119/64 95 10/22/18 07:05 74 14 97 10/22/18 04:20 36.9 C 81 20 122/71 95 10/22/18 01:44 80 10/21/18 22:49 36.9 C 78 19 99/63 L 94 Lab Results (24hrs): Laboratory Tests (24 Hours) 10/22/18 10/22/18 10/21/18 06:34 06:34 09:50 WBC 11.49 H D Neut # (Auto) 9.97 H Creatinine 1.12 D 1.60 H Est Cr Clr Drug Dosing 54.8 38.4 10/21/18 09:50 WBC 23.89 H Neut # (Auto) 20.57 H Creatinine Est Cr Clr Drug Dosing Micro Results: Laboratory Tests 10/21/18 17:00 Nasal Screen MRSA (PCR) Negative 10/21/18 10:41 Aerobic Blood Culture - Pending Blood Anaerobic Blood Culture - Pending 10/21/18 10:30 Aerobic Blood Culture - Pending Blood Anaerobic Blood Culture - Pending - Risk Factors for Resistance * Resident in a drug rehabilitation facility recently * Immunocompromised (chronic steroid therapy) * Antimicrobial use within the last 90 days: Levofloxacin - Assessment & Plan Assessment 57 year old F admitted 10/21 for worsening shortness of breath and weakness along with productive cough, sputum production, and wheezing secondary to COPD exacerbation vs healthcare-associated pneumonia. Also reports a few day history of nausea with emesis. CTAP shows consolidation in left lower lobe suggestive of pneumonia per radiology Pertinent PMH includes current smoker and COPD Recent use of Levofloxacin for treatment of sinusitis MRSA nasal swab is negative Plan IV Vancomycin and Cefepime for treatment of HCAP Vancomycin IV * Estimated PK Parameters: Vd 0.7 L/kg, Sj 0.036 hr-1, t1/2 19 hrs * Loading dose: 1500 mg (20 mg/kg) * Maintenance dose: 1250 mg IV (16 mg/kg) every 24 hours * Goal trough level for HCAP: 15 to 20 mcg/mL * Trough level ordered for 10/24/18 prior to the 3rd dose (due to CECILY) Pharmacy will continue to follow and will adjust dose/frequency as necessary. Thank you.
[2018-10-22] MEDS: DOXYCYCLINE HYCLATE 100 MG CAP PO SCH ×2 (16:03→20:17)
[2018-10-22] MEDS: ENOXAPARIN INJ 40 MG/0.4 ML SYR SQ SCH (17:22)
[2018-10-22] MEDS ORDERED: MoRPHine SULFATE 4 MG/ML 1 ML CARP\\VIAL IV STA (19:12)
--- NOTE | 2018-10-22 19:21 | Hospitalist Progress Note ---
Date of Service October 22, 2018 Assessment & Plan (1) Abdominal pain: This patient is a 57-year-old female with a history of smoking, benzodiazepine dependence, GERD, who presented with 2 days of worsening left lower quadrant pain as well as nausea and vomiting after being treated recently for an acute sinusitis with Levaquin. She also had been having a cough and some wheezing reportedly. She was found to have a leukocytosis with a white blood cell count of 20 3K, thrombocytosis in the 800s, acute kidney injury with creatinine of 1.6, and a patchy groundglass consolidation in the left lower lobe on CT scan consistent with possible pneumonia. She was afebrile and lactate at the time of admission was 2.0. She was admitted and placed on IV Solu-Medrol, cefepime and vancomycin to treat for healthcare associated pneumonia. Leukocytosis significantly improved the day after admission down to 11 Her left lower quadrant pain got significantly worse on 10/22 and lactate became more elevated at 2.8. LFTs and BMP continue to be within normal limits. WBC count is now back up to 14 but she also received Solu-Medrol. A repeat CT scan of the abdomen/pelvis with IV contrast was performed on the evening of 10/22 which was reviewed with the reading radiologist on the phone-her celiac axis and SMA and YUN are clearly patent and there is no evidence of any ischemic bowel or abnormalities in the area of her pain. Her intrahepatic ducts were mildly dilated compared to previous, however she has normal LFTs and no right upper quadrant pain. She continued to have distal thoracic aorta intraluminal thrombus. I discussed the case with vascular surgeon on-call who recommended against anticoagulation at this time. Procalcitonin was negative Does have thickened bladder wall on CT-however, urinalysis is normal and not consistent with urinary tract infection -Discussed with overnight MD-we will continue serial abdominal exams -Repeat lactate in 4 hours from previous-if trending upward, would consult general surgeon to evaluate for exploratory laparoscopy to look for ischemic bowel -Increase IV fluids to 150 mL's per hour normal saline -DC IV Solu-Medrol as could make bowel more friable -Converted antibiotics to IV Cipro and Flagyl to cover for GI source of infection -Follow CBC, CMP in the morning -Add IV morphine as needed for pain control -Keep n.p.o. at this time -Continue Pepcid 20 mg IV every 12 (2) Pneumonia: Left lower lobe patchy groundglass infiltrate and atelectasis seen on both CT scans of the abdomen/pelvis. Chest x-ray within normal limits. She is no longer really having any signs or symptoms of pneumonia at this time. She had been treated with a course of Levaquin just prior to admission and perhaps this is residual infiltrate radiographically. -Nonetheless, will continue doxycycline to cover for pneumonia -DC'd cefepime and vancomycin, MRSA swab negative -Follow radiographically until resolution on imaging as she is a smoker and is at risk for lung cancer (3) COPD exacerbation: Apparently had shortness of breath and wheezing on admission which is now resolved -DC IV steroids. -Continue nebulizer treatments -Would encourage smoking cessation (4) Acute kidney injury: Creatinine 1.6 upon admission likely secondary to prerenal state and dehydration from nausea and vomiting Creatinine now improved to 1.1, has good urine output -Continue IV fluids -Follow BMP in the morning (5) Hypotension: Was significant hypotensive upon arrival in the ER yesterday with systolic blood pressure in the 60s which improved with IV fluid resuscitation -Continue IV fluids -Continue treatment with antibiotics as above Blood pressures are now within normal limits -Holding clonidine and prazosin -Follow blood pressures (6) Admitted to substance misuse detoxification center: Recent detoxification from Xanax and a 30-day stay at a drug rehab center -Would not give any benzodiazepines here -We will hold home prazosin, and will hold clonidine as could cause hypotension (7) Drug dependence: Benzodiazepine dependence as above, recently completed rehab (8) Bone lesion: A 3 mm sclerotic bone lesion visualized in the right ilium on CT of the abdomen/pelvis-to be considered metastatic lesion until proven otherwise -Radiology recommends mammogram and possibly nuclear bone scan-these can be done as an outpatient She did have a colonoscopy 2 years ago that was reportedly normal She does have a left lower lobe groundglass opacity as above-could consider pulmonary malignancy-need to follow pulmonary imaging to resolution as above -Also has distal circumferential esophageal thickening noted on CT scan-does have a long history of GERD and smoking-needs EGD outpatient versus inpatient (9) Thrombocytosis: Platelets in the 800s on admission indicative of an acute phase reactant Improving with hydration at this time and antibiotic treatment -Follow CBC (10) Leukocytosis: As above, WBC count significantly elevated at 23K on admission and now improved -Secondary to infection -Continue to follow CBC -Follow blood cultures (11) Aortic mural thrombus: Distal descending thoracic aortic intraluminal thrombus seen. She has moderate atherosclerotic plaque throughout her aorta as well and its likely related to plaque buildup As mentioned above, discussed case with vascular surgery who does not think she needs anticoagulation -Would likely put her on aspirin and a statin at this time as there is no evidence of thromboembolism -Will consider starting these once taking p.o. again (12) Renal artery aneurysm: Partially calcified and seen on the right renal artery on imaging Renal function is normal at this time -Consider vascular surgery evaluation as an outpatient (13) Nausea & vomiting: As above, now improved (14) Anemia: Hemoglobin has decreased down to 9.7 with IV fluid resuscitation and is likely somewhat hemo-dilutional, however she was likely hemoconcentrated on admission. Is normocytic, no gross bleeding from anywhere on history or on examination or on imaging -Will follow CBC -Check iron studies, Hemoccult stool, B12, folate in the morning (15) Esophageal thickening: Noted distal circumferential esophageal thickening on CT scan -Consider EGD as above (16) DVT prophylaxis: Lovenox subcu Disposition-remain hospitalized for further work-up Eventually, will be discharged to the [facility], case management is involved Subjective When I saw the patient this evening, she reports having severe left lower quadrant abdominal pain in the last 2 hours. Her left lower quadrant abdominal pain started about 2 days ago but was not as bad as it is now. She reports the pain is a 10 out of 10 in the left lower quadrant with some pain in the suprapubic region. The pain is nonradiating. She reports her last bowel movement was yesterday and was a normal brown formed stool. She has not had any bright red blood per rectum. She had nausea and vomiting yesterday but no further nausea today. She had no blood in her vomit yesterday. She denies blood in her urine or difficulty with urination. She has no history of bowel issues or diverticulitis. She reports she had a colonoscopy 2 years ago that she was told had a couple polyps but nothing malignant. She denies any back or flank pain. She denies chest pain or shortness of breath. Denies cough. Review of Systems Review of Systems: All systems reviewed & are unremarkable except as noted in HPI & below Physical Exam Constitutional: well developed, + acute distress (Tearful, diaphoretic, appears to be in significant pain) and average body habitus Eyes: PERRL, conjunctivae normal, anicteric sclerae ENMT: external ear and nose normal, oropharynx normal Neck: trachea midline, no thyromegaly Respiratory: normal respiratory effort, lungs clear to auscultation Cardiovascular: RRR, no murmur, no edema Gastrointestinal (Abdomen): Inspection/Auscultation: abdomen normal to inspection and normal bowel sounds Percussion/Palpation: + abdomen tender (Significant TTP in the LLQ and suprapubic region with guarding, no rebound tenderness); no guarding, abdomen not rigid, no hepatosplenomegaly and no hernia Musculoskeletal: Extremities: extremities normal to inspection; no cyanosis and no clubbing Skin: no rashes, warm and dry Neurologic: moves all extremities and awake; no focal motor deficits Psychiatric: Orientation: alert and oriented x 3 Affect: + tearful affect Results & Data Vital Signs (Past 12 Hours) Vital Signs Temp Pulse Pulse Resp BP Pulse Ox 10/22/18 19:13 36.3 C L 88 20 136/80 96 10/22/18 15:50 68 14 96 10/22/18 15:12 96 H 10/22/18 15:10 37.0 C 96 H 20 117/62 94 10/22/18 11:21 101 H 20 93 10/22/18 11:15 36.6 C 95 H 16 108/61 94 Laboratory Results 10/22/18 10/22/18 10/22/18 Range/Units 19:40 19:36 19:36 WBC (4.8-10.8) K/uL RBC (4.2-5.4) M/uL Hgb (12.0-16.0) g/dL Hct (37-47) % MCV (80-100) fL MCH (25-34) pg MCHC (32-36) g/dL RDW Std Deviation (36.4-46.3) fL RDW Coeff of Uriah (11.5-14.5) % Plt Count (130-400) K/uL MPV (7.4-10.4) fL Immature Gran % (Auto) % Neut % (Auto) % Lymph % (Auto) % [place] % (Auto) % Eos % (Auto) % Baso % (Auto) % Immature Gran # (Auto) (0.00-0.02) K/uL Neut # (Auto) (1.4-6.5) K/uL Lymph # (Auto) (1.2-3.4) K/uL [place] # (Auto) (0.11-0.59) K/uL Eos # (Auto) (0-0.5) K/uL Baso # (Auto) (0-0.2) K/uL Sodium 141 (136-145) mmol/L Potassium 4.1 (3.5-5.1) mmol/L Chloride 113 H (98-107) mmol/L Carbon Dioxide 22 (21-32) mmol/L Anion Gap 7.0 (3-11) BUN 21 H (7-18) mg/dl Creatinine 1.13 (0.6-1.2) mg/dl Est Cr Clr Drug Dosing 54.3 ml/min Est GFR ( Amer) 61.6 Est GFR (Non-Af Amer) 53.2 BUN/Creatinine Ratio 18.2 (10-20) Glucose 162 H (70-99) mg/dl Lactate 2.8 H* (0.4-2.0) mmol/L Calcium 8.8 (8.5-10.1) mg/dl Total Bilirubin 0.2 (0.2-1) mg/dl Direct Bilirubin < 0.1 (0-0.2) mg/dl AST 10 L (15-37) U/L ALT 13 (12-78) U/L Alkaline Phosphatase 67 (45-117) U/L Total Protein 6.9 (6.4-8.2) gm/dl Albumin 2.8 L (3.4-5.0) gm/dl Procalcitonin 0.06 (0-0.5) ng/ml 10/22/18 10/22/18 10/22/18 Range/Units 19:36 07:59 06:34 WBC 14.51 H (4.8-10.8) K/uL RBC 3.23 L (4.2-5.4) M/uL Hgb 9.7 L (12.0-16.0) g/dL Hct 29.5 L (37-47) % MCV 91.3 (80-100) fL MCH 30.0 (25-34) pg MCHC 32.9 (32-36) g/dL RDW Std Deviation 45.4 (36.4-46.3) fL RDW Coeff of Ruiah 13.6 (11.5-14.5) % Plt Count 607 H (130-400) K/uL MPV 8.5 (7.4-10.4) fL Immature Gran % (Auto) 0.3 % Neut % (Auto) 87.8 % Lymph % (Auto) 6.7 % [place] % (Auto) 5.2 % Eos % (Auto) 0.0 % Baso % (Auto) 0.0 % Immature Gran # (Auto) 0.05 H (0.00-0.02) K/uL Neut # (Auto) 12.73 H (1.4-6.5) K/uL Lymph # (Auto) 0.97 L (1.2-3.4) K/uL [place] # (Auto) 0.76 H (0.11-0.59) K/uL Eos # (Auto) 0.00 (0-0.5) K/uL Baso # (Auto) 0.00 (0-0.2) K/uL Sodium 142 (136-145) mmol/L Potassium 4.1 (3.5-5.1) mmol/L Chloride 113 H (98-107) mmol/L Carbon Dioxide 23 (21-32) mmol/L Anion Gap 6.0 (3-11) BUN 26 H (7-18) mg/dl Creatinine 1.12 D (0.6-1.2) mg/dl Est Cr Clr Drug Dosing 54.8 ml/min Est GFR ( Amer) 62.3 Est GFR (Non-Af Amer) 53.7 BUN/Creatinine Ratio 23.6 H (10-20) Glucose 145 H (70-99) mg/dl Lactate (0.4-2.0) mmol/L Calcium 9.2 (8.5-10.1) mg/dl Total Bilirubin (0.2-1) mg/dl Direct Bilirubin (0-0.2) mg/dl AST (15-37) U/L ALT (12-78) U/L Alkaline Phosphatase (45-117) U/L Total Protein (6.4-8.2) gm/dl Albumin (3.4-5.0) gm/dl Procalcitonin (0-0.5) ng/ml 10/22/18 Range/Units 06:34 WBC 11.49 H D (4.8-10.8) K/uL RBC 3.53 L (4.2-5.4) M/uL Hgb 10.5 L (12.0-16.0) g/dL Hct 32.4 L (37-47) % MCV 91.8 (80-100) fL MCH 29.7 (25-34) pg MCHC 32.4 (32-36) g/dL RDW Std Deviation 44.7 (36.4-46.3) fL RDW Coeff of Uriah 13.5 (11.5-14.5) % Plt Count 693 H (130-400) K/uL MPV 8.9 (7.4-10.4) fL Immature Gran % (Auto) 0.5 % Neut % (Auto) 86.8 % Lymph % (Auto) 11.5 % [place] % (Auto) 1.1 % Eos % (Auto) 0.0 % Baso % (Auto) 0.1 % Immature Gran # (Auto) 0.06 H (0.00-0.02) K/uL Neut # (Auto) 9.97 H (1.4-6.5) K/uL Lymph # (Auto) 1.32 (1.2-3.4) K/uL [place] # (Auto) 0.13 (0.11-0.59) K/uL Eos # (Auto) 0.00 (0-0.5) K/uL Baso # (Auto) 0.01 (0-0.2) K/uL Sodium (136-145) mmol/L Potassium (3.5-5.1) mmol/L Chloride (98-107) mmol/L Carbon Dioxide (21-32) mmol/L Anion Gap (3-11) BUN (7-18) mg/dl Creatinine (0.6-1.2) mg/dl Est Cr Clr Drug Dosing ml/min Est GFR ( Amer) Est GFR (Non-Af Amer) BUN/Creatinine Ratio (10-20) Glucose (70-99) mg/dl Lactate (0.4-2.0) mmol/L Calcium (8.5-10.1) mg/dl Total Bilirubin (0.2-1) mg/dl Direct Bilirubin (0-0.2) mg/dl AST (15-37) U/L ALT (12-78) U/L Alkaline Phosphatase (45-117) U/L Total Protein (6.4-8.2) gm/dl Albumin (3.4-5.0) gm/dl Procalcitonin (0-0.5) ng/ml PG Care Time/CCT Total # of Minutes Spent Total Time Spent with Patient: Total time spent is greater than 50% in coordination of care (as documented) at patient's floor/unit and/or counseling patient: (1) Leukocytosis Leukocytosis type: unspecified Qualified Code(s): D72.829 - Elevated white blood cell count, unspecified (2) Hypotension Hypotension type: unspecified hypotension type Qualified Code(s): I95.9 - Hypotension, unspecified (3) Pneumonia Laterality: left Lung location: lower lobe of lung Pneumonia type: due to unspecified organism Qualified Code(s): J18.1 - Lobar pneumonia, unspecified organism
[2018-10-22 19:47] LABS: Hematocrit (blood only) 29.5 % (37-47); Hemoglobin 9.7 g/dL (12.0-16.0); Immature Granulocytes # (auto) 0.05 K/uL (0.00-0.02); Immature Granulocytes % (auto) 0.3 %; Lymphocytes # (auto) 0.97 K/uL (1.2-3.4); Lymphocytes % (auto) 6.7 %; Mean Corpuscular Volume 91.3 fL (80-100); Mean Platelet Volume 8.5 fL (7.4-10.4); Monocytes # (auto) 0.76 K/uL (0.11-0.59); Monocytes % (auto) 5.2 %; Neutrophils # (auto) 12.73 K/uL (1.4-6.5); Neutrophils % (auto) 87.8 %; Platelet Count 607 K/uL (130-400); RDW Coefficient of Variation 13.6 % (11.5-14.5); RDW Standard Deviation 45.4 fL (36.4-46.3); Red Blood Count 3.23 M/uL (4.2-5.4); White Blood Count 14.51 K/uL (4.8-10.8)
[2018-10-22 19:49] LABS: Mean Corpuscular Hgb Conc 32.9 g/dL (32-36)
[2018-10-22] MEDS: metroNIDAZOLE 500 MG/100 ML BAG IV SCH (20:15)
[2018-10-22 20:17] LABS: Alanine Aminotransferase 13 U/L (12-78); Albumin Level 2.8 gm/dl (3.4-5.0); Aspartate Aminotransferase 10 U/L (15-37); BUN Creatinine Ratio 18.2 (10-20); Bilirubin Direct < 0.1 mg/dl (0-0.2); Blood Urea Nitrogen 21 mg/dl (7-18); Calcium 8.8 mg/dl (8.5-10.1); Carbon Dioxide 22 mmol/L (21-32); Chloride 113 mmol/L (98-107); Creatinine Clr Calc Pharmacy 54.3 ml/min; Est GFR (African American) 61.6; Est GFR (Non-African American) 53.2; Glucose 162 mg/dl (70-99); Potassium 4.1 mmol/L (3.5-5.1); Sodium 141 mmol/L (136-145)
[2018-10-22 20:20] LABS: Alkaline Phosphatase 67 U/L (45-117); Bilirubin,Total 0.2 mg/dl (0.2-1); Total Protein 6.9 gm/dl (6.4-8.2)
[2018-10-22] MEDS: cloNIDine HCl 0.1 MG TAB PO SCH (20:22)
[2018-10-22] MEDS ORDERED: HEPARIN SODIUM/DEXTROSE 25,000 UNITS/500 ML BAG IV SCH (20:45)
[2018-10-22] MEDS ORDERED: IOVERSOL 100ml IV PRN (20:46)
--- NOTE | 2018-10-22 21:04 | CT Scan Report ---
CT SCAN OF THE ABDOMEN AND PELVIS WITH IV CONTRAST CLINICAL HISTORY: Left lower quadrant abdominal pain. COMPARISON STUDY: Abdominal CT dated 10/21/2018. TECHNIQUE: Following the IV administration of 93 cc of Optiray 320, CT scan of the abdomen and pelvi s is performed from the lung bases to the proximal femora. Images are reviewed in the axial, sagittal , and coronal planes. IV contrast was administered without complication. A dose lowering technique wa s utilized adhering to the principles of ALARA. FINDINGS: Lung bases: The heart is normal in size and without pericardial effusion. Emphysematous change is not ed. Patchy ground glass consolidation and atelectasis are identified at the left lung base. The right lung base is clear. No pleural effusion is identified. There is a small hiatal hernia. Circumferenti al wall thickening is suggested in the distal esophagus. Intraluminal thrombus is again noted within the distal descending thoracic aorta. Liver: The contrast-enhanced liver is mildly enlarged measuring 19 cm in length. The liver is otherwi se normal in contour and attenuation. There is mild intrahepatic biliary ductal dilatation. The hepat ic veins and portal veins are patent. Gallbladder: Partially contracted and grossly unremarkable. Spleen: Normal in size and attenuation. Pancreas: Unremarkable. Adrenal glands: There is mild nodularity of the adrenal glands. Kidneys: The contrast enhanced kidneys are normal in size and without hydronephrosis. The kidneys enh ance symmetrically. There is a 10 mm peripherally calcified right renal artery aneurysm seen on image #126. Abdominal vasculature: The abdominal aorta is normal in course and caliber noting mild to moderate at herosclerotic calcification. Bowel: There is mild colonic fecal retention. No bowel obstruction is seen. The appendix is well-vis ualized and normal. Peritoneum: There is no intraperitoneal free air or abdominal ascites. Lymphadenopathy: None. Pelvic viscera: Although partially decompressed, mild bladder wall thickening suggested. The uterus a nd adnexa are normal as imaged. Skeletal structures: A 3 cm sclerotic lesion is identified within the right ilium on image #220. IMPRESSION: 1. There is mild intrahepatic biliary ductal dilatation. This is of indeterminate significance, but h as increased from yesterday. Correlation with clinical and laboratory findings will be required. Cons ider right upper quadrant ultrasound for further assessment. 2. Patchy airspace consolidation and atelectasis are again seen at the left lung base. Correlate clin ically for evidence of a mild infectious/inflammatory pneumonitis. 3. Emphysema. 4. Although the bladder is partially decompressed, the bladder wall appears circumferentially thicken ed. This is unchanged from yesterday. 5. Unchanged appearance of a 3 cm pathologically indeterminant sclerotic lesion identified within the right ilium. 6. There is a small hiatal hernia with circumferential wall thickening suggested in the distal esopha orlando. Correlate clinically for evidence of esophagitis. 7. There is a 10 mm peripheral calcified right renal artery aneurysm. 8. Additional findings as above. Electronically signed by: Nicholas Desir M.D. 10/22/2018 9:02 PM
[2018-10-22] MEDS: CIPROFLOXACIN 400 MG/200 ML BAG IV SCH (21:31)
[2018-10-22] MEDS: MoRPHine SULFATE 4 MG/ML 1 ML CARP\\VIAL IV PRN (23:24)
[2018-10-23] MEDS: MoRPHine SULFATE 4 MG/ML 1 ML CARP\\VIAL IV PRN ×3 (03:49→22:05)
[2018-10-23] MEDS: SODIUM CHLORIDE 0.9% 1000ML 1,000 ML IV SCH ×3 (03:50→17:47)
[2018-10-23] MEDS: metroNIDAZOLE 500 MG/100 ML BAG IV SCH ×3 (03:50→19:49)
[2018-10-23] MEDS: ALBUT/IPRATROP 3MG/0.5MG NEB 3 ML VIAL NEB SCH ×4 (07:01→19:33)
[2018-10-23 07:10] LABS: Basophils # (auto) 0.01 K/uL (0-0.2); Basophils % (auto) 0.1 %; Hematocrit (blood only) 29.2 % (37-47); Hemoglobin 9.3 g/dL (12.0-16.0); Immature Granulocytes # (auto) 0.05 K/uL (0.00-0.02); Immature Granulocytes % (auto) 0.4 %; Lymphocytes # (auto) 2.32 K/uL (1.2-3.4); Lymphocytes % (auto) 19.7 %; Mean Corpuscular Hgb Conc 31.8 g/dL (32-36); Mean Corpuscular Volume 92.4 fL (80-100); Mean Platelet Volume 8.9 fL (7.4-10.4); Monocytes # (auto) 0.73 K/uL (0.11-0.59); Monocytes % (auto) 6.2 %; Neutrophils # (auto) 8.67 K/uL (1.4-6.5); Neutrophils % (auto) 73.6 %; Platelet Count 585 K/uL (130-400); RDW Coefficient of Variation 13.8 % (11.5-14.5); RDW Standard Deviation 46.6 fL (36.4-46.3); Red Blood Count 3.16 M/uL (4.2-5.4); White Blood Count 11.78 K/uL (4.8-10.8)
[2018-10-23 07:51] LABS: Alanine Aminotransferase 14 U/L (12-78); Albumin Level 2.6 gm/dl (3.4-5.0); Aspartate Aminotransferase 9 U/L (15-37); BUN Creatinine Ratio 18.9 (10-20); Bilirubin Direct < 0.1 mg/dl (0-0.2); Blood Urea Nitrogen 15 mg/dl (7-18); Calcium 8.8 mg/dl (8.5-10.1); Carbon Dioxide 26 mmol/L (21-32); Chloride 112 mmol/L (98-107); Creatinine Clr Calc Pharmacy 78.7 ml/min; Est GFR (African American) 96.4; Est GFR (Non-African American) 83.2; Glucose 102 mg/dl (70-99); Iron 42 mcg/dl (35-150); Magnesium 1.8 mg/dl (1.8-2.4); Phosphorus 2.5 mg/dl (2.5-4.9); Potassium 3.8 mmol/L (3.5-5.1); Sodium 143 mmol/L (136-145)
[2018-10-23 07:54] LABS: Alkaline Phosphatase 57 U/L (45-117); Bilirubin,Total 0.2 mg/dl (0.2-1); Ferritin 39.2 ng/ml (8-388); Total Protein 6.5 gm/dl (6.4-8.2); Transferrin 222 mg/dl (200-360); Transferrin Percent Saturation 13 % (15-50)
[2018-10-23 08:28] LABS: Folate (Folic Acid) 12.25 ng/ml (>5.38)
[2018-10-23] MEDS: DOXYCYCLINE HYCLATE 100 MG CAP PO SCH ×2 (08:44→20:23)
[2018-10-23] MEDS: CIPROFLOXACIN 400 MG/200 ML BAG IV SCH ×2 (08:44→20:51)
[2018-10-23] MEDS: CITALOPRAM 40 MG TAB PO SCH (08:45)
[2018-10-23] MEDS: CYCLOBENZAPRINE HCL 10 MG TAB PO SCH (08:45)
[2018-10-23] MEDS: FAMOTIDINE 20 MG in SYRINGE 3 ML IV SCH ×2 (09:01→20:26)
[2018-10-23 14:36] LABS: Basophils # (auto) 0.01 K/uL (0-0.2); Basophils % (auto) 0.1 %; Eosinophils # (auto) 0.01 K/uL (0-0.5); Eosinophils % (auto) 0.1 %; Hemoglobin 9.7 g/dL (12.0-16.0); Immature Granulocytes # (auto) 0.03 K/uL (0.00-0.02); Immature Granulocytes % (auto) 0.3 %; Lymphocytes # (auto) 3.29 K/uL (1.2-3.4); Lymphocytes % (auto) 34.1 %; Mean Corpuscular Hgb Conc 32.3 g/dL (32-36); Mean Corpuscular Volume 92.9 fL (80-100); Mean Platelet Volume 8.6 fL (7.4-10.4); Monocytes # (auto) 0.69 K/uL (0.11-0.59); Monocytes % (auto) 7.2 %; Neutrophils # (auto) 5.61 K/uL (1.4-6.5); Neutrophils % (auto) 58.2 %; Platelet Count 544 K/uL (130-400); RDW Coefficient of Variation 13.7 % (11.5-14.5); RDW Standard Deviation 46.5 fL (36.4-46.3); Red Blood Count 3.23 M/uL (4.2-5.4); White Blood Count 9.64 K/uL (4.8-10.8)
--- NOTE | 2018-10-23 15:38 | Gastrointestinal Consultation ---
Date of Consultation October 23, 2018 Assessment & Plan (1) Esophageal thickening: Recommend EGD and she is amenable to doing it tomorrow. Proc and risks explained which include but not limited to med reaction, bleeding, perforation, aspiration. Because of hx of possible gastroparesis will place on clear today then NPO at HI. Fe def anemia--EGD as above. Discussed colonoscopy tomorrow but she does not want that at present LLQ pain--in light of fecal retention on CT will give mag citrate in case constipation playing a part. Offered cold but response as above. intrahepatic duct dilation on CT--no RUQ pain to suggest biliary process and LFTS normal. Elective MRCP. sclerotic lesion on bone--EGD as above History of Present Illness Reason for Consultation: LLQ pain, esophageal abnormality, anemia Requesting Physician: Candice Del Cid MD Attending Physician: Candice Del Cid MD History of Present Illness CC abd pain HPI Pt in rehab for xanax dependence on her way to [place] to a half way house and admitted for abd pain, n/v. Pt states snf use of PPI for GERD maybe 15 years then med stopped 7 years ago. She was told 7 years ago her stomach was full of food on EGD. States had colo maybe 2 years ago. She states nausea and LLQ for [address] a/p on 10/21 and 10/22 COPD, HH, esophageal thickening, hepatomegaly, colonic fecal retention, thoracic aortic thrombus, intrahepatic duct dilatation. She states no nausea today but LLQ pain the same. She states does not feel constipated and moved bowels yesterday. Allergies Allergy/AdvReac Type Severity Reaction Status Date / Time Penicillins Allergy Hives Unverified 10/21/18 10:36 Home Medications Home Medications Medication Instructions Recorded Confirmed Type albuterol sulfate [Ventolin HFA] 1 puff INHALATION Q6H PRN 10/21/18 10/21/18 History cholecalciferol (vitamin D3) 2,000 unit PO BID 10/21/18 10/21/18 History citalopram [Celexa] 40 mg PO QAM 10/21/18 10/21/18 History clonidine HCl 0.1 mg PO HS 10/21/18 10/21/18 History cyclobenzaprine 10 mg PO DAILY 10/21/18 10/21/18 History folic acid 1 mg PO DAILY 10/21/18 10/21/18 History ipratropium-albuterol 3 ml INHALATION DAILY PRN 10/21/18 10/21/18 History levofloxacin 500 mg PO DAILY PRN 10/21/18 10/21/18 History menthol [Bengay Cold Therapy] 1 % TOPICAL DIRECTED PRN 10/21/18 10/21/18 Hist ory prazosin 2 mg PO QAM 10/21/18 10/21/18 History prednisone 50 mg PO DAILY 10/21/18 10/21/18 History thiamine HCl (vitamin B1) 100 mg PO DAILY 10/21/18 10/21/18 History trazodone 100 mg PO HS 10/21/18 10/21/18 History Patient History Medical History Acute gastritis (Acute) Acute kidney injury (Acute) COPD exacerbation (Acute) Pneumonia (Acute) Admitted to substance misuse detoxification center Drug dependence (Chronic) Family History Other No significant family history Social History Preferred Language: French Communication Ability: Effective 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 Beliefs That Will Affect Care: None marital status: Current Living Situation: Homeless Current [facility] Situation Comment[facility] [place] [facility]) current occupational status: unemployed Other Information That Helps Us Care for You: No Feels Safe at Home: Yes Safety Concerns: Feels Safe At This Time Smoking Status: Current every day smoker Tobacco Type: cigarettes Cigarettes Per Day: 20 Do You Dip or Chew Tobacco: No Second Hand Exposure: No Tobacco Cessation Education Requested by Patient: No Hx Alcohol Use: No Hx Substance Use: No Review of Systems Review of Systems: All systems reviewed & are unremarkable except as noted in HPI & below Physical Exam Constitutional: WD/WN, vitals as above Eyes: PERRL, conjunctivae normal, anicteric sclerae ENMT: external ear and nose normal, oropharynx normal Neck: normal visual inspection and trachea midline Respiratory: normal respiratory effort, lungs clear to auscultation Cardiovascular: RRR, no murmur, no edema Gastrointestinal (Abdomen): pos bs, soft, no guarding nor rebound Neurologic: PERRL, EOMI, accommodation nl, no face palsy, no dysarthria Psychiatric: A+Ox3, euthymic affect Results & Data Vital Signs (Past 12 Hours) Vital Signs Temp Pulse Pulse Resp BP BP Pulse Ox 10/23/18 15:03 37.0 C 67 18 145/82 H 96 10/23/18 11:24 80 18 97 10/23/18 11:15 36.8 C 74 18 118/70 97 10/23/18 07:24 83 10/23/18 07:23 36.8 C 71 16 133/80 96 10/23/18 07:06 71 16 96 10/23/18 04:00 36.8 C 74 18 140/87 96
[2018-10-23] MEDS: ENOXAPARIN INJ 40 MG/0.4 ML SYR SQ SCH (17:50)
--- NOTE | 2018-10-23 18:11 | Hospitalist Progress Note ---
Date of Service October 23, 2018 Assessment & Plan (1) Abdominal pain: This patient is a 57-year-old female with a history of smoking, benzodiazepine dependence, GERD, who presented with 2 days of worsening left lower quadrant pain as well as nausea and vomiting after being treated recently for an acute sinusitis with Levaquin. She also had been having a cough and some wheezing reportedly which had improved prior to admission. She was found to have a leukocytosis with a white blood cell count of 23 K, thrombocytosis in the 800s, acute kidney injury with creatinine of 1.6, and a patchy groundglass consolidation in the left lower lobe on CT scan consistent with possible pneumonia. She was afebrile and lactate at the time of admission was 2.0. She was admitted and placed on IV Solu-Medrol, cefepime and vancomycin to treat for healthcare associated pneumonia. Leukocytosis significantly improved the day after admission down to 11 Her left lower quadrant pain got significantly worse on 10/22 and lactate became more elevated at 2.8. LFTs and BMP continue to be within normal limits. WBC count was back up to 14 but she also had received Solu-Medrol. A repeat CT scan of the abdomen/pelvis with IV contrast was performed on the evening of 10/22 which was reviewed with the reading radiologist on the phone-her celiac axis and SMA and YUN are clearly patent and there is no evidence of any ischemic bowel or abnormalities in the area of her pain. Her intrahepatic ducts were mildly dilated compared to previous, however she has normal LFTs and no right upper quadrant pain. She continued to have distal thoracic aorta intraluminal thrombus. I discussed the case with vascular surgeon on-call who recommended against anticoagulation at this time. Procalcitonin was negative Does have thickened bladder wall on CT-however, urinalysis is normal and not consistent with urinary tract infection Her antibiotics were switched to Cipro and Flagyl to cover for GI source of infection including colitis. Perhaps she had a mild ischemic colitis due to the previous hypotension upon admission which caused her lactate to become elevated, but not significant enough to cause changes on CT scan. On 10/23, left lower quadrant pain is significantly improved but still present. She had a small amount of bright red blood per rectum. She is not agreeable to having a colonoscopy at the same time as her EGD as she reports she had an asthma exacerbation the last time she had a colonoscopy. Lactate has now returned to normal, LFTs and chemistry panel are normal, and her leukocytosis is now completely resolved. She remains afebrile. Now tolerating clear liquids -Decrease IV fluids to 75 mL's per hour -Continue antibiotics with IV Cipro and Flagyl to cover for GI source of infection-Day #2 -Follow CBC, CMP in the morning -Continue IV morphine as needed for pain control -Advanced diet to clear liquids for dinner and then n.p.o. after midnight for EGD -Continue Pepcid 20 mg IV every 12Hours (2) Pneumonia: Left lower lobe patchy groundglass infiltrate and atelectasis seen on both CT scans of the abdomen/pelvis. Chest x-ray within normal limits. She is no longer really having any signs or symptoms of pneumonia at this time. She had been treated with a course of Levaquin just prior to admission and perhaps this is residual infiltrate radiographically. -Nonetheless, will continue doxycycline to cover for pneumonia/Bronchitis -DC'd cefepime and vancomycin, MRSA swab negative -Follow radiographically until resolution on imaging as she is a smoker and is at risk for lung cancer-I discussed this with the patient today (3) COPD exacerbation: Apparently had shortness of breath and wheezing on admission which is now resolved -Discontinued the IV steroids Which were ordered on admission -Continue nebulizer treatments -encouraged smoking cessation (4) Acute kidney injury: Creatinine 1.6 upon admission likely secondary to prerenal state and dehydration from nausea and vomiting Creatinine now improved to 0.78, has good urine output -Continue IV fluids -Follow BMP in the morning (5) Hypotension: Was significantly hypotensive upon arrival in the ER with systolic blood pressure in the 60s which improved with IV fluid resuscitation Perhaps this did lead to a mild ischemic colitis As above -Continue IV fluids -Continue treatment with antibiotics as above Blood pressures are now within normal limits -Holding clonidine and prazosin -Follow blood pressures (6) Admitted to substance misuse detoxification center: Recent detoxification from Xanax and a 30-day stay at a drug rehab center -Would not give any benzodiazepines here -We will hold home prazosin, and will hold clonidine as could cause hypotension (7) Drug dependence: Benzodiazepine dependence as above, recently completed rehab (8) Bone lesion: A 3 mm sclerotic bone lesion visualized in the right ilium on CT of the abdomen/pelvis-to be considered metastatic lesion until proven otherwise -Radiology recommends mammogram and possibly nuclear bone scan-these can be done as an outpatient She did have a colonoscopy 2 years ago that was reportedly normal She does have a left lower lobe groundglass opacity as above-could consider pulmonary malignancy-need to follow pulmonary imaging to resolution as above -Also has distal circumferential esophageal thickening noted on CT scan-does have a long history of GERD and smoking-needs EGD -Plan for this tomorrow here as an inpatient with GI -Appreciate GI consultation (9) Thrombocytosis: Platelets in the 800s on admission indicative of an acute phase reactant Continues to improve and is down to 585 at this time With antibiotic treatment -Follow CBC (10) Leukocytosis: As above, WBC count significantly elevated at 23K on admission and now Resolved -Secondary to infection -Continue to follow CBC -Follow blood cultures-No growth to date (11) Aortic mural thrombus: Distal descending thoracic aortic intraluminal thrombus seen. She has moderate atherosclerotic plaque throughout her aorta as well and its likely related to plaque buildup As mentioned above, discussed case with vascular surgery who does not think she needs anticoagulation -Would likely put her on aspirin and a statin at this time as there is no evidence of thromboembolism -Will consider starting these once taking p.o. 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 and seen on the right renal artery on imaging Renal function is normal at this time -Obtaining vascular surgery evaluation (13) Nausea & vomiting: As above, now resolved (14) Anemia: Hemoglobin has decreased down to 9.3 with IV fluid resuscitation and is likely somewhat hemo-dilutional, But is iron deficient on labs Is normocytic, no gross bleeding from anywhere on history or on examination or on imaging -Ferritin is low normal at 39, transferrin saturation is low at 13%, B12 and folate are normal Awaiting Hemoccult stool -Plan for EGD now and will need colonoscopy as an outpatient -Will follow CBC (15) Esophageal thickening: Noted distal circumferential esophageal thickening on CT scan -plan for EGD as above Tomorrow (16) DVT prophylaxis: Lovenox subcu Disposition-remain hospitalized for further work-up Eventually, will be discharged to the half-way house, case management is involved Subjective Patient still having left lower quadrant pain today in the abdomen but is definitely improved from yesterday. She is no longer having severe pain and not taking morphine as much. She denies any cough or shortness of breath, no chest pain or pressure. She reports she had about a elana sized amount of bright red blood with a small bowel movement today. No nausea or vomiting. No epigastric pain. She is now tolerating the clear liquids diet. Telemetry with normal sinus rhythm with rates in the 60s to 90s Review of Systems Review of Systems: All systems reviewed & are unremarkable except as noted in HPI & below Physical Exam Constitutional: well developed and average body habitus; no acute distress Eyes: PERRL, conjunctivae normal, anicteric sclerae ENMT: external ear and nose normal, oropharynx normal Neck: trachea midline, no thyromegaly Respiratory: normal respiratory effort, lungs clear to auscultation Cardiovascular: RRR, no murmur, no edema Gastrointestinal (Abdomen): Inspection/Auscultation: abdomen normal to inspection and normal bowel sounds Percussion/Palpation: + abdomen tender (Now only mild TTP in the LLQ without guarding); no guarding, abdomen not rigid, no hepatosplenomegaly and no hernia Musculoskeletal: Extremities: extremities normal to inspection; no cyanosis and no clubbing Skin: no rashes, warm and dry Neurologic: moves all extremities and awake; no focal motor deficits Psychiatric: A+Ox3, euthymic affect Results & Data Vital Signs (Past 12 Hours) Vital Signs Temp Pulse Pulse Resp BP BP Pulse Ox 10/23/18 16:17 86 10/23/18 15:29 70 18 97 10/23/18 15:03 37.0 C 67 18 145/82 H 96 10/23/18 11:24 80 18 97 10/23/18 11:15 36.8 C 74 18 118/70 97 10/23/18 07:24 83 10/23/18 07:23 36.8 C 71 16 133/80 96 10/23/18 07:06 71 16 96 Laboratory Results 10/23/18 10/23/18 10/23/18 Range/Units 14:27 14:27 06:32 WBC 9.64 (4.8-10.8) K/uL RBC 3.23 L (4.2-5.4) M/uL Hgb 9.7 L (12.0-16.0) g/dL Hct 30.0 L (37-47) % MCV 92.9 (80-100) fL MCH 30.0 (25-34) pg MCHC 32.3 (32-36) g/dL RDW Std Deviation 46.5 H (36.4-46.3) fL RDW Coeff of Uriah 13.7 (11.5-14.5) % Plt Count 544 H (130-400) K/uL MPV 8.6 (7.4-10.4) fL Immature Gran % (Auto) 0.3 % Neut % (Auto) 58.2 % Lymph % (Auto) 34.1 % Garza % (Auto) 7.2 % Eos % (Auto) 0.1 % Baso % (Auto) 0.1 % Immature Gran # (Auto) 0.03 H (0.00-0.02) K/uL Neut # (Auto) 5.61 (1.4-6.5) K/uL Lymph # (Auto) 3.29 (1.2-3.4) K/uL Garza # (Auto) 0.69 H (0.11-0.59) K/uL Eos # (Auto) 0.01 (0-0.5) K/uL Baso # (Auto) 0.01 (0-0.2) K/uL Sodium (136-145) mmol/L Potassium (3.5-5.1) mmol/L Chloride (98-107) mmol/L Carbon Dioxide (21-32) mmol/L Anion Gap (3-11) BUN (7-18) mg/dl Creatinine (0.6-1.2) mg/dl Est Cr Clr Drug Dosing ml/min Est GFR ( Amer) Est GFR (Non-Af Amer) BUN/Creatinine Ratio (10-20) Glucose (70-99) mg/dl Lactate 1.0 (0.4-2.0) mmol/L Calcium (8.5-10.1) mg/dl Phosphorus (2.5-4.9) mg/dl Magnesium (1.8-2.4) mg/dl Iron (35-150) mcg/dl TIBC (250-450) mcg/dl Transferrin (200-360) mg/dl Transferrin % Sat (15-50) % Ferritin (8-388) ng/ml Total Bilirubin (0.2-1) mg/dl Direct Bilirubin (0-0.2) mg/dl AST (15-37) U/L ALT (12-78) U/L Alkaline Phosphatase (45-117) U/L Total Protein (6.4-8.2) gm/dl Albumin (3.4-5.0) gm/dl Vitamin B12 781 (211-911) pg/ml Folate 12.25 (>5.38) ng/ml Procalcitonin (0-0.5) ng/ml 10/23/18 10/23/18 10/22/18 Range/Units 06:32 06:32 22:48 WBC 11.78 H (4.8-10.8) K/uL RBC 3.16 L (4.2-5.4) M/uL Hgb 9.3 L (12.0-16.0) g/dL Hct 29.2 L (37-47) % MCV 92.4 (80-100) fL MCH 29.4 (25-34) pg MCHC 31.8 L (32-36) g/dL RDW Std Deviation 46.6 H (36.4-46.3) fL RDW Coeff of Uriah 13.8 (11.5-14.5) % Plt Count 585 H (130-400) K/uL MPV 8.9 (7.4-10.4) fL Immature Gran % (Auto) 0.4 % Neut % (Auto) 73.6 % Lymph % (Auto) 19.7 % Garza % (Auto) 6.2 % Eos % (Auto) 0.0 % Baso % (Auto) 0.1 % Immature Gran # (Auto) 0.05 H (0.00-0.02) K/uL Neut # (Auto) 8.67 H (1.4-6.5) K/uL Lymph # (Auto) 2.32 (1.2-3.4) K/uL Garza # (Auto) 0.73 H (0.11-0.59) K/uL Eos # (Auto) 0.00 (0-0.5) K/uL Baso # (Auto) 0.01 (0-0.2) K/uL Sodium 143 (136-145) mmol/L Potassium 3.8 (3.5-5.1) mmol/L Chloride 112 H (98-107) mmol/L Carbon Dioxide 26 (21-32) mmol/L Anion Gap 5.0 (3-11) BUN 15 (7-18) mg/dl Creatinine 0.78 D (0.6-1.2) mg/dl Est Cr Clr Drug Dosing 78.7 ml/min Est GFR ( Amer) 96.4 Est GFR (Non-Af Amer) 83.2 BUN/Creatinine Ratio 18.9 (10-20) Glucose 102 H (70-99) mg/dl Lactate 2.5 H* (0.4-2.0) mmol/L Calcium 8.8 (8.5-10.1) mg/dl Phosphorus 2.5 D (2.5-4.9) mg/dl Magnesium 1.8 (1.8-2.4) mg/dl Iron 42 (35-150) mcg/dl TIBC 281 (250-450) mcg/dl Transferrin 222 (200-360) mg/dl Transferrin % Sat 13 L (15-50) % Ferritin 39.2 (8-388) ng/ml Total Bilirubin 0.2 (0.2-1) mg/dl Direct Bilirubin < 0.1 (0-0.2) mg/dl AST 9 L (15-37) U/L ALT 14 (12-78) U/L Alkaline Phosphatase 57 (45-117) U/L Total Protein 6.5 (6.4-8.2) gm/dl Albumin 2.6 L (3.4-5.0) gm/dl Vitamin B12 (211-911) pg/ml Folate (>5.38) ng/ml Procalcitonin (0-0.5) ng/ml 10/22/18 10/22/18 10/22/18 Range/Units 19:40 19:36 19:36 WBC (4.8-10.8) K/uL RBC (4.2-5.4) M/uL Hgb (12.0-16.0) g/dL Hct (37-47) % MCV (80-100) fL MCH (25-34) pg MCHC (32-36) g/dL RDW Std Deviation (36.4-46.3) fL RDW Coeff of Uriah (11.5-14.5) % Plt Count (130-400) K/uL MPV (7.4-10.4) fL Immature Gran % (Auto) % Neut % (Auto) % Lymph % (Auto) % Garza % (Auto) % Eos % (Auto) % Baso % (Auto) % Immature Gran # (Auto) (0.00-0.02) K/uL Neut # (Auto) (1.4-6.5) K/uL Lymph # (Auto) (1.2-3.4) K/uL Garza # (Auto) (0.11-0.59) K/uL Eos # (Auto) (0-0.5) K/uL Baso # (Auto) (0-0.2) K/uL Sodium 141 (136-145) mmol/L Potassium 4.1 (3.5-5.1) mmol/L Chloride 113 H (98-107) mmol/L Carbon Dioxide 22 (21-32) mmol/L Anion Gap 7.0 (3-11) BUN 21 H (7-18) mg/dl Creatinine 1.13 (0.6-1.2) mg/dl Est Cr Clr Drug Dosing 54.3 ml/min Est GFR ( Amer) 61.6 Est GFR (Non-Af Amer) 53.2 BUN/Creatinine Ratio 18.2 (10-20) Glucose 162 H (70-99) mg/dl Lactate 2.8 H* (0.4-2.0) mmol/L Calcium 8.8 (8.5-10.1) mg/dl Phosphorus (2.5-4.9) mg/dl Magnesium (1.8-2.4) mg/dl Iron (35-150) mcg/dl TIBC (250-450) mcg/dl Transferrin (200-360) mg/dl Transferrin % Sat (15-50) % Ferritin (8-388) ng/ml Total Bilirubin 0.2 (0.2-1) mg/dl Direct Bilirubin < 0.1 (0-0.2) mg/dl AST 10 L (15-37) U/L ALT 13 (12-78) U/L Alkaline Phosphatase 67 (45-117) U/L Total Protein 6.9 (6.4-8.2) gm/dl Albumin 2.8 L (3.4-5.0) gm/dl Vitamin B12 (211-911) pg/ml Folate (>5.38) ng/ml Procalcitonin 0.06 (0-0.5) ng/ml 10/22/18 Range/Units 19:36 WBC 14.51 H (4.8-10.8) K/uL RBC 3.23 L (4.2-5.4) M/uL Hgb 9.7 L (12.0-16.0) g/dL Hct 29.5 L (37-47) % MCV 91.3 (80-100) fL MCH 30.0 (25-34) pg MCHC 32.9 (32-36) g/dL RDW Std Deviation 45.4 (36.4-46.3) fL RDW Coeff of Uriah 13.6 (11.5-14.5) % Plt Count 607 H (130-400) K/uL MPV 8.5 (7.4-10.4) fL Immature Gran % (Auto) 0.3 % Neut % (Auto) 87.8 % Lymph % (Auto) 6.7 % Garza % (Auto) 5.2 % Eos % (Auto) 0.0 % Baso % (Auto) 0.0 % Immature Gran # (Auto) 0.05 H (0.00-0.02) K/uL Neut # (Auto) 12.73 H (1.4-6.5) K/uL Lymph # (Auto) 0.97 L (1.2-3.4) K/uL Garza # (Auto) 0.76 H (0.11-0.59) K/uL Eos # (Auto) 0.00 (0-0.5) K/uL Baso # (Auto) 0.00 (0-0.2) K/uL Sodium (136-145) mmol/L Potassium (3.5-5.1) mmol/L Chloride (98-107) mmol/L Carbon Dioxide (21-32) mmol/L Anion Gap (3-11) BUN (7-18) mg/dl Creatinine (0.6-1.2) mg/dl Est Cr Clr Drug Dosing ml/min Est GFR ( Amer) Est GFR (Non-Af Amer) BUN/Creatinine Ratio (10-20) Glucose (70-99) mg/dl Lactate (0.4-2.0) mmol/L Calcium (8.5-10.1) mg/dl Phosphorus (2.5-4.9) mg/dl Magnesium (1.8-2.4) mg/dl Iron (35-150) mcg/dl TIBC (250-450) mcg/dl Transferrin (200-360) mg/dl Transferrin % Sat (15-50) % Ferritin (8-388) ng/ml Total Bilirubin (0.2-1) mg/dl Direct Bilirubin (0-0.2) mg/dl AST (15-37) U/L ALT (12-78) U/L Alkaline Phosphatase (45-117) U/L Total Protein (6.4-8.2) gm/dl Albumin (3.4-5.0) gm/dl Vitamin B12 (211-911) pg/ml Folate (>5.38) ng/ml Procalcitonin (0-0.5) ng/ml PG Care Time/CCT Total # of Minutes Spent Total Time Spent with Patient: Total time spent is greater than 50% in coordination of care (as documented) at patient's floor/unit and/or counseling patient: (1) Pneumonia Laterality: left Lung location: lower lobe of lung Pneumonia type: due to unspecified organism Qualified Code(s): J18.1 - Lobar pneumonia, unspecified organism (2) Hypotension Hypotension type: unspecified hypotension type Qualified Code(s): I95.9 - Hypotension, unspecified (3) Leukocytosis Leukocytosis type: unspecified Qualified Code(s): D72.829 - Elevated white blood cell count, unspecified
[2018-10-23] MEDS: ACETAMINOPHEN 325 MG TAB PO PRN (20:26)
[2018-10-24] MEDS: MoRPHine SULFATE 4 MG/ML 1 ML CARP\\VIAL IV PRN ×5 (02:15→20:52)
[2018-10-24] MEDS: metroNIDAZOLE 500 MG/100 ML BAG IV SCH ×3 (03:28→19:50)
[2018-10-24] MEDS: SODIUM CHLORIDE 0.9% 1000ML 1,000 ML IV SCH ×2 (05:09→21:14)
[2018-10-24] MEDS: NICOTINE 14 MG/24 HR PATCH TD SCH (06:36)
[2018-10-24 07:06] LABS: Basophils # (auto) 0.02 K/uL (0-0.2); Basophils % (auto) 0.2 %; Eosinophils # (auto) 0.03 K/uL (0-0.5); Eosinophils % (auto) 0.3 %; Hemoglobin 10.4 g/dL (12.0-16.0); Immature Granulocytes # (auto) 0.03 K/uL (0.00-0.02); Immature Granulocytes % (auto) 0.3 %; Lymphocytes # (auto) 4.18 K/uL (1.2-3.4); Mean Corpuscular Hgb Conc 32.5 g/dL (32-36); Mean Platelet Volume 8.6 fL (7.4-10.4); Monocytes # (auto) 0.83 K/uL (0.11-0.59); Monocytes % (auto) 9.5 %; Neutrophils # (auto) 3.62 K/uL (1.4-6.5); Neutrophils % (auto) 41.7 %; Platelet Count 500 K/uL (130-400); RDW Coefficient of Variation 13.8 % (11.5-14.5); RDW Standard Deviation 46.8 fL (36.4-46.3); Red Blood Count 3.44 M/uL (4.2-5.4); White Blood Count 8.71 K/uL (4.8-10.8)
[2018-10-24] MEDS: ALBUT/IPRATROP 3MG/0.5MG NEB 3 ML VIAL NEB SCH ×4 (07:12→19:26)
[2018-10-24 07:44] LABS: Alanine Aminotransferase 14 U/L (12-78); Albumin Level 2.7 gm/dl (3.4-5.0); Aspartate Aminotransferase 7 U/L (15-37); BUN Creatinine Ratio 13.4 (10-20); Bilirubin Direct < 0.1 mg/dl (0-0.2); Blood Urea Nitrogen 8 mg/dl (7-18); Calcium 8.3 mg/dl (8.5-10.1); Carbon Dioxide 30 mmol/L (21-32); Chloride 108 mmol/L (98-107); Est GFR (African American) 114.4; Est GFR (Non-African American) 98.7; Glucose 80 mg/dl (70-99); Potassium 3.4 mmol/L (3.5-5.1); Sodium 142 mmol/L (136-145)
[2018-10-24 07:46] LABS: Alkaline Phosphatase 59 U/L (45-117); Bilirubin,Total 0.4 mg/dl (0.2-1); Total Protein 6.5 gm/dl (6.4-8.2)
[2018-10-24] MEDS: CITALOPRAM 40 MG TAB PO SCH (08:18)
[2018-10-24] MEDS: FAMOTIDINE 20 MG in SYRINGE 3 ML IV SCH (08:18)
[2018-10-24] MEDS: CIPROFLOXACIN 400 MG/200 ML BAG IV SCH ×2 (08:18→20:48)
[2018-10-24] MEDS: DOXYCYCLINE HYCLATE 100 MG CAP PO SCH ×2 (08:18→20:41)
[2018-10-24] MEDS: CYCLOBENZAPRINE HCL 10 MG TAB PO SCH (08:18)
--- NOTE | 2018-10-24 09:37 | Anesthesiology Consultation ---
Date of Service October 24, 2018 Assessment & Plan (1) Encounter for pre-operative examination: Chart Review Chart Review: Acceptable Risk for Surgery and Patient NOT seen in Pre Admission Testing Consults Requested none ASA ASA3 Proposed Anesthesia Anesthesia Type: MAC Risk / Benefits Reviewed With: PT / POA / Parent / Guardian, Accepts Plan and Informed Consent Obtained History Surgery Operation Date: 10/24/18 09:30 Proposed Procedures p Esophagogastroduodenoscopy Dr Abdoul Schreiber Height/Weight Height: 5 ft 5 in Weight: 75 kg Allergies Allergy/AdvReac Type Severity Reaction Status Date / Time Penicillins Allergy Hives Unverified 10/21/18 10:36 Medications Home Medications Medication Instructions Recorded Confirmed Last Taken albuterol sulfate [Ventolin HFA] 1 puff INHALATION Q6H PRN 10/21/18 10/21/18 Unknown cholecalciferol (vitamin D3) 2,000 unit PO BID 10/21/18 10/21/18 Unknown citalopram [Celexa] 40 mg PO QAM 10/21/18 10/21/18 Unknown clonidine HCl 0.1 mg PO HS 10/21/18 10/21/18 Unknown cyclobenzaprine 10 mg PO DAILY 10/21/18 10/21/18 Unknown folic acid 1 mg PO DAILY 10/21/18 10/21/18 Unknown ipratropium-albuterol 3 ml INHALATION DAILY PRN 10/21/18 10/21/18 Unknown levofloxacin 500 mg PO DAILY PRN 10/21/18 10/21/18 Unknown menthol [Bengay Cold Therapy] 1 % TOPICAL DIRECTED PRN 10/21/18 10/21/18 Unknown prazosin 2 mg PO QAM 10/21/18 10/21/18 Unknown prednisone 50 mg PO DAILY 10/21/18 10/21/18 Unknown thiamine HCl (vitamin B1) 100 mg PO DAILY 10/21/18 10/21/18 Unknown trazodone 100 mg PO HS 10/21/18 10/21/18 Unknown Active Medications Generic Name Dose Route Start Last Admin Trade Name Freq PRN Reason Stop Dose Admin Acetaminophen 650 mg 10/21/18 16:36 10/23/18 20:26 Tylenol PO 11/20/18 16:35 650 mg Q4H PRN Administration Pain or Fever Albuterol 3 ml 10/21/18 16:36 10/24/18 11:09 Duoneb NEB 11/20/18 16:35 3 ml QIDR ROSLYN Administration Citalopram Hydrobromide 40 mg 10/22/18 09:00 10/24/18 08:18 Celexa PO 11/21/18 08:59 40 mg QAM ROSLYN Administration Clonidine HCl 0.1 mg 10/21/18 21:00 10/22/18 20:22 Catapres PO 11/20/18 20:59 0.1 mg HS ROSLYN Administration Cyclobenzaprine HCl 10 mg 10/22/18 09:00 10/24/18 08:18 Flexeril PO 11/21/18 08:59 10 mg DAILY ROSLYN Administration Doxycycline Hyclate 100 mg 10/22/18 15:30 10/24/18 08:18 Vibramycin PO 10/29/18 15:29 100 mg BID ROSLYN Administration Enoxaparin Sodium 40 mg 10/21/18 18:00 10/23/18 17:50 Lovenox SQ 11/20/18 17:59 40 mg Q24H ROSLYN Administration Folic Acid 1 mg 10/22/18 09:00 10/22/18 07:21 Folvite PO 11/21/18 08:59 1 mg DAILY ROSLYN Administration Famotidine 20 mg/ Syringe 5 mls @ 2.5 mls/min 10/21/18 21:00 10/24/18 08:18 IV 11/20/18 20:59 2.5 mls/min Q12H ROSLYN Administration Sodium Chloride 1,000 mls @ 75 mls/hr 10/21/18 17:00 10/24/18 05:09 Nss 1000ml IV 11/20/18 16:59 75 mls/hr .[id number] ROSLYN Administration Metronidazole 500 mg in 100 mls @ 100 mls/hr 10/22/18 20:00 10/24/18 04:28 Flagyl IV 11/01/18 19:59 Infused Q8H ROSLYN Infusion Ciprofloxacin 400 mg in 200 mls @ 100 mls/hr 10/22/18 20:00 10/24/18 10:31 Cipro IV 11/01/18 19:59 Infused Q12H ROSLYN Infusion Protocol Ioversol 95 ml 10/21/18 10:59 10/21/18 10:59 Optiray 320 100ml IV 10/25/18 10:58 95 ml ONCE PRN Administration Interaction Checking Ioversol 93 ml 10/22/18 20:46 10/22/18 20:46 Optiray 320 100ml IV 10/26/18 20:45 93 ml ONCE PRN Administration Interaction Checking Miscellaneous 1 ea 10/22/18 21:00 10/23/18 20:24 Remove Nicoderm Patch N/A 11/21/18 20:59 Not Given HS ROSLYN Miscellaneous 1 ea 10/23/18 21:00 10/24/18 00:09 Remove Nicoderm Patch N/A 11/22/18 20:59 Not Given HS ROSLYN Morphine Sulfate 3 mg 10/22/18 19:18 10/24/18 10:30 Morphine Sulfate IV 11/05/18 19:17 3 mg Q4 PRN Administration Pain Nicotine 14 mg 10/24/18 09:00 10/24/18 06:36 Nicoderm Cq TD 11/23/18 08:59 14 mg QAM ROSLYN Administration Prazosin HCl 2 mg 10/22/18 09:00 10/22/18 07:19 Prazosin Hcl PO 11/21/18 08:59 2 mg QAM ROSLYN Administration Sucralfate 1 gm 10/21/18 17:00 10/22/18 20:16 Carafate PO 11/20/18 16:59 1 gm ACHS ROSLYN Administration Vitamin D 2,000 units 10/21/18 21:00 10/22/18 20:18 Vitamin D3 PO 11/20/18 20:59 2,000 units BID ROSLYN Administration NPO Date Last Intake of Fluids: 10/24/18 Time Last Intake of Fluids: 10:30 Last Intake of Fluids Comment: Sip with meds Date Last Intake of Solids: 10/22/18 Time Last Intake of Solids: 19:00 Past Medical History Medical History Acute gastritis (Acute) Acute kidney injury (Acute) COPD exacerbation (Acute) Pneumonia (Acute) Admitted to substance misuse detoxification center Drug dependence (Chronic) Exercise / Class Metabolic Activity III < 4 Walking/Shop/Light housework Negative for chest pain or shortness of breath. Patient denies active symptoms of GERD. Past Family History Family History Other No significant family history Past Surgical History Surgical History History of 2 sections History of ankle surgery History of foot surgery Right and left History of tonsillectomy Past Anesthesia History No Hx of Anesthesia Complications History of PONV No Hx of PONV and No Hx of Motion Sickness Social History Smoking Status: Current every day smoker tobacco type: cigarettes Smoking cigarettes per day: 20 Do You Dip or Chew Tobacco: No Hx Alcohol Use: No Alcohol Intake Frequency Comment: recent detox Hx Substance Use: No substance use type: does not use Substance Use Type Other:: benzodiasepine-Xanax Last Used Substance: Unknown Last Used Substance Other:: recent drug detox Review of Systems Negative for chest pain or shortness of breath. Patient denies active symptoms of GERD. Physical Exam Vital Signs Last Vital Signs Temp 36.6 C 10/24/18 12:12 Pulse 67 10/24/18 12:12 Resp 18 10/24/18 12:12 BP 145/82 H 10/24/18 12:12 Pulse Ox 95 10/24/18 12:12 Constitutional not obese ENMT Mouth: + edentulous; no TMJ abnormality and oral opening not small Thyromental Distance: > or= 3.5 Finger Breadths Mallampati Class: I Neck normal visual inspection; neck extension not limited Respiratory normal respiratory effort Auscultation: lungs clear to auscultation bilaterally Cardiovascular Rate/Rhythm: regular rate and regular rhythm Heart Sounds: no murmur Neurologic moves all extremities Psychiatric Orientation: alert and oriented x 3 Testing Laboratory Results 10/24/18 06:50 10/24/18 06:50 PT 12.4 Seconds (9.0-12.0) H 10/21/18 09:50 INR 1.2 (0.9-1.1) H 10/21/18 09:50 Urine Color Yellow 10/21/18 15:20 Urine Appearance Clear (Clear) 10/21/18 15:20 Urine pH 6.0 (4.5-7.5) 10/21/18 15:20 Ur Specific Roll 1.043 (1.000-1.030) H 10/21/18 15:20 Urine Protein Negative (Negative) 10/21/18 15:20 Urine Glucose (UA) Negative (Negative) 10/21/18 15:20 Urine Ketones Trace (Negative) H 10/21/18 15:20 Urine Nitrite Negative (Negative) 10/21/18 15:20 Ur Leukocyte Esterase Negative (Negative) 10/21/18 15:20 10/21/18 10:41 Aerobic Blood Culture - Preliminary Blood No growth in Aerobic bottle after 48 hours. Anaerobic Blood Culture - Preliminary No growth in Anaerobic bottle after 48 hours. 10/21/18 10:30 Aerobic Blood Culture - Preliminary Blood No growth in Aerobic bottle after 48 hours. Anaerobic Blood Culture - Preliminary No growth in Anaerobic bottle after 48 hours. Electrocardiogram Date: 10/21/18 Findings: + ST @ (104) Possible LAE
[2018-10-24] MEDS ORDERED: POTASSIUM CHLORIDE 20 MEQ TABCR PO STA (09:40)
--- NOTE | 2018-10-24 11:16 | Consultation ---
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 Recommend pt have surveillance US of renal art in 6 months to assess for stability. Pt understands and will discuss with new physician once she is settled. Patient was seen, examined, and chart reviewed. Agree with exam and treatment plan of the Vascular PA. Thank you very much for letting us participate in the care of this patient. Present on Admission?: Yes (2) Aortic mural thrombus: All imaging reviewed by Dr Morrow. Incidentally noted mural thrombus, noncontributory to abd pain. No vascular surgical intervention or full AC recommended. Recommend 81mg ASA daily. Pt understands. Please call if needed. Present on Admission?: Yes History of Present Illness Reason for Consultation: mural aortic thrombus, renal art aneruysm Attending Physician: Candice Del Cid MD History of Present Illness 57 yo f with hx HTN and hx of drug dependence, admitted with pneumonia and intermittent LLQ pain, seen in consultation today for aortic mural thrombus and renal art aneurysm noted incidentally on CT scan. Pt states no prior knowledge of this. States had a fever and malaise prior to arrival, but feeling much better. Has had intermittent LLQ pain without radiation or other associated sx for past few weeks, worst just ELEVATOR REPAIRER. Pt denies chills, chest pain, SOB presently, N/V, abd pain presently, rest pain, claudication, other complaints. CT scan demonstrates thoracic aortic mural thrombus and 1cm renal art aneurysm. Allergies Allergy/AdvReac Type Severity Reaction Status Date / Time Penicillins Allergy Hives Unverified 10/21/18 10:36 Home Medications Home Medications Medication Instructions Recorded Confirmed Type albuterol sulfate [Ventolin HFA] 1 puff INHALATION Q6H PRN 10/21/18 10/21/18 History cholecalciferol (vitamin D3) 2,000 unit PO BID 10/21/18 10/21/18 History citalopram [Celexa] 40 mg PO QAM 10/21/18 10/21/18 History clonidine HCl 0.1 mg PO HS 10/21/18 10/21/18 History cyclobenzaprine 10 mg PO DAILY 10/21/18 10/21/18 History folic acid 1 mg PO DAILY 10/21/18 10/21/18 History ipratropium-albuterol 3 ml INHALATION DAILY PRN 10/21/18 10/21/18 History levofloxacin 500 mg PO DAILY PRN 10/21/18 10/21/18 History menthol [Bengay Cold Therapy] 1 % TOPICAL DIRECTED PRN 10/21/18 10/21/18 History prazosin 2 mg PO QAM 10/21/18 10/21/18 History prednisone 50 mg PO DAILY 10/21/18 10/21/18 History thiamine HCl (vitamin B1) 100 mg PO DAILY 10/21/18 10/21/18 History trazodone 100 mg PO HS 10/21/18 10/21/18 History Patient History Medical History Acute gastritis (Acute) Acute kidney injury (Acute) COPD exacerbation (Acute) Pneumonia (Acute) Admitted to substance misuse detoxification center Drug dependence (Chronic) Surgical History History of 2 sections History of ankle surgery History of foot surgery Right and left History of tonsillectomy Family History Other No significant family history Social History Preferred Language: Kazakh Communication Ability: Effective Sports Reporter Required: No Beliefs That Will Affect Care: None marital status: Current Living Situation: Homeless [facility] [place] [facility] current occupational status: unemployed Other Information That Helps Us Care for You: No Feels Safe at Home: Yes Safety Concerns: Feels Safe At This Time Smoking Status: Current every day smoker Tobacco Type: cigarettes ; Cigarettes Per Day: 20 ; Do You Dip or Chew Tobacco: No ; Second Hand Exposure: No ; Tobacco Cessation Education Requested by Patient: No Hx Alcohol Use: No Hx Substance Use: No Review of Systems Review of Systems: All systems reviewed & are unremarkable except as noted in HPI & below Physical Exam Constitutional: WD/WN, vitals as above well developed, well nourished, + obese, healthy appearing, + disheveled, cooperative and comfortable; not in distress and not combative Eyes: PERRL, conjunctivae normal, anicteric sclerae EOM intact bilaterally ENMT: external ear and nose normal, oropharynx normal Ears: no hearing impairment Nose: no nasal discharge Neck: trachea midline, no thyromegaly no tracheal deviation, no neck crepitus and neck nontender Respiratory: normal respiratory effort, lungs clear to auscultation able to speak in complete sentences; does not use accessory muscles and no cough Auscultation: lungs clear to auscultation bilaterally and + diminished lung sounds; no rhonchi and no wheezes Cardiovascular: RRR, no murmur, no edema Heart Sounds: no gallop and no murmur Vessels: femoral pulses present, posterior tibial pulses present, dorsalis pedis pulses present, brachial pulses present and radial pulses present; no carotid bruit, no femoral bruit and + abnormal peripheral pulses Extremities: normal capillary refill; no edema Chest (Breasts): Chest: normal inspection of chest Gastrointestinal (Abdomen): Inspection/Auscultation: abdomen normal to inspection and normal bowel sounds; abdomen not distended and no abdominal edema Percussion/Palpation: + abdomen tender (LLQ mild) and abdomen soft; no guarding, abdomen not rigid and no abdominal mass Musculoskeletal: no cyanosis or clubbing, extremities motor strength 5/5 Head/Neck/Chest: normocephalic, head atraumatic and neck supple; no chest tenderness Extremities: extremities normal to inspection and strength 5/5 throughout; full ROM of extremities and no clubbing Skin: no rashes, warm and dry normal turgor; no lesions, no ulcers, no wound, no erythema, no eschar, no excoriations and no mottling Trauma: no hematoma and no puncture Neurologic: moves all extremities and awake; no focal motor deficits and not confused Speech / Cognition: no expressive aphasia and no receptive aphasia Motor/Sensory: no tremor and no sensory deficit Cranial Nerves: EOM intact bilaterally, normal facial strength and tongue midline Psychiatric: Orientation: alert, oriented x 3 and cooperative Apperance: appropriately dressed, appropriately groomed and appeared stated age Affect: euthymic affect Thought Process: goal directed thought process, linear/logical thought process and clear/coherent thought process Cognition: recent memory grossly intact, remote memory grossly intact, attention grossly intact and language grossly intact Estimated Intelligence: average estimated intelligence Results & Data Vital Signs (Past 12 Hours) Vital Signs Temp Pulse Pulse Resp BP BP Pulse Ox 10/24/18 11:09 36.9 C 68 18 150/87 H 95 10/24/18 08:15 70 10/24/18 07:16 36.9 C 63 16 142/81 H 95 10/24/18 07:12 62 14 94 10/24/18 03:40 36.4 C L 67 18 136/82 95 10/24/18 03:10 69 10/23/18 23:16 36.6 C 70 18 144/83 H 95
[2018-10-24] MEDS ORDERED: BENZOCAIN/TETRACA/BUTAM SPRAY 200 APPLN/20 GM SPRY EXT ONE (12:25)
[2018-10-24] MEDS ORDERED: PROPOFOL IV EMULSION 10 MG/ML 20 ML VIAL IV ONE (12:25)
[2018-10-24] MEDS ORDERED: LIDOCAINE HCL 2% 2 ML VIAL/AMP(20MG/ML) INFIL ONE (12:25)
--- NOTE | 2018-10-24 12:27 | History & Physical Report ---
Date of Service October 24, 2018 History of Present Illness Chief Complaint: Anemia, N and V Primary Care Provider: NO PCP For EGD Allergies Allergy/AdvReac Type Severity Reaction Status Date / Time Penicillins Allergy Hives Unverified 10/21/18 10:36 Home Medications Home Medications Medication Instructions Recorded Confirmed Type albuterol sulfate [Ventolin HFA] 1 puff INHALATION Q6H PRN 10/21/18 10/21/18 History cholecalciferol (vitamin D3) 2,000 unit PO BID 10/21/18 10/21/18 History citalopram [Celexa] 40 mg PO QAM 10/21/18 10/21/18 History clonidine HCl 0.1 mg PO HS 10/21/18 10/21/18 History cyclobenzaprine 10 mg PO DAILY 10/21/18 10/21/18 History folic acid 1 mg PO DAILY 10/21/18 10/21/18 History ipratropium-albuterol 3 ml INHALATION DAILY PRN 10/21/18 10/21/18 History levofloxacin 500 mg PO DAILY PRN 10/21/18 10/21/18 History menthol [Bengay Cold Therapy] 1 % TOPICAL DIRECTED PRN 10/21/18 10/21/18 History prazosin 2 mg PO QAM 10/21/18 10/21/18 History prednisone 50 mg PO DAILY 10/21/18 10/21/18 History thiamine HCl (vitamin B1) 100 mg PO DAILY 10/21/18 10/21/18 History trazodone 100 mg PO HS 10/21/18 10/21/18 History Past Med/Surg History Medical History Acute gastritis (Acute) Acute kidney injury (Acute) COPD exacerbation (Acute) Pneumonia (Acute) Admitted to substance misuse detoxification center Drug dependence (Chronic) Family History Other No significant family history Social History Preferred Language: Telugu Communication Ability: Effective Director Data Processing Required: No Beliefs That Will Affect Care: None marital status: Current Living Situation: Homeless Current Living Situation Comment: In transit to [facility] in [place] (10/21/18) current occupational status: unemployed Other Information That Helps Us Care for You: No Feels Safe at Home: Yes Safety Concerns: Feels Safe At This Time Smoking Status: Current every day smoker Tobacco Type: cigarettes ; Cigarettes Per Day: 20 ; Do You Dip or Chew Tobacco: No ; Second Hand Exposure: No ; Tobacco Cessation Education Requested by Patient: No Hx Alcohol Use: No Hx Substance Use: No Physical Exam Constitutional: + obese ENMT: Mouth: + edentulous Respiratory: normal respiratory effort Cardiovascular: Rate/Rhythm: regular rate and regular rhythm Gastrointestinal (Abdomen): Percussion/Palpation: abdomen soft Results & Data Vital Signs (Past 12 Hours) Vital Signs Temp Pulse Pulse Resp BP BP Pulse Ox 10/24/18 12:12 36.6 C 67 18 145/82 H 95 10/24/18 11:09 36.9 C 68 18 150/87 H 95 10/24/18 08:15 70 10/24/18 07:16 36.9 C 63 16 142/81 H 95 10/24/18 07:12 62 14 94 10/24/18 03:40 36.4 C L 67 18 136/82 95 10/24/18 03:10 69
[2018-10-24] MEDS ORDERED: SODIUM CHLORIDE 0.9% 1000ML 1,000 ML IV SCH (12:30)
--- NOTE | 2018-10-24 13:27 | Progress Note ---
DATE: 10/24/2018 SUBJECTIVE: The patient presented for an EGD today for epigastric pain, nausea, vomiting, and anemia. The patient reports having no aspirin or nonsteroidals prior to hospitalization. EGD showed a normal esophagus and stomach, but there were 2 cratered ulcers in the duodenal bulb with no stigmata of bleeding. IMPRESSION: The patient has duodenal ulcers. She is currently on Carafate and Pepcid. Recommend a bland full-liquid diet and a stool for H. pylori. Dr. Quigley will be covering for the weekend.
--- NOTE | 2018-10-24 13:29 | Anesthesiology Progress Note ---
Date of Service October 24, 2018 Anesthesia Post Procedure Vital Signs Vital Signs: Temp Pulse Pulse Resp BP BP Pulse Ox 10/24/18 13:19 75 18 138/87 95 10/24/18 13:03 73 18 134/87 95 10/24/18 12:49 36.5 C 70 18 132/82 95 10/24/18 12:12 36.6 C 67 18 145/82 H 95 10/24/18 11:09 36.9 C 68 18 150/87 H 95 10/24/18 08:15 70 10/24/18 07:16 36.9 C 63 16 142/81 H 95 10/24/18 07:12 62 14 94 10/24/18 03:40 36.4 C L 67 18 136/82 95 10/24/18 03:10 69 10/23/18 23:16 36.6 C 70 18 144/83 H 95 10/23/18 19:34 78 16 97 10/23/18 18:56 37.0 C 81 20 133/84 95 10/23/18 16:17 86 10/23/18 15:29 70 18 97 10/23/18 15:03 37.0 C 67 18 145/82 H 96 Pain Intensity Abdomen: Pain Intensity: 4 Transfer of Care Handoff Completed per policy Notes Mental Status: alert / awake / arousable and participated in evaluation Nausea / Vomiting: adequately controlled Pain: adequately controlled Airway Patency, RR, SpO2: stable & adequate BP & HR: stable & adequate Hydration State: stable & adequate Anesthetic Complications: no major complications apparent and Pt Satisfied with anesthetic care
[2018-10-24] MEDS ORDERED: MAGNESIUM CITRATE 296 ML/BTL PO ONE (15:28)
[2018-10-24] MEDS: ENOXAPARIN INJ 40 MG/0.4 ML SYR SQ SCH (17:31)
--- NOTE | 2018-10-24 18:46 | Hospitalist Progress Note ---
Date of Service October 24, 2018 Assessment & Plan (1) Abdominal pain: This patient is a 57-year-old female with a history of smoking, benzodiazepine dependence, GERD, who presented with 2 days of worsening left lower quadrant pain as well as nausea and vomiting after being treated recently for an acute sinusitis with Levaquin. She also had been having a cough and some wheezing reportedly which had improved prior to admission. She was found to have a leukocytosis with a white blood cell count of 23 K, thrombocytosis in the 800s, acute kidney injury with creatinine of 1.6, and a patchy groundglass consolidation in the left lower lobe on CT scan consistent with possible pneumonia. She was afebrile and lactate at the time of admission was 2.0. She was admitted and placed on IV Solu-Medrol, cefepime and vancomycin to treat for healthcare associated pneumonia. Leukocytosis significantly improved the day after admission down to 11 Her left lower quadrant pain got significantly worse on 10/22 and lactate became more elevated at 2.8. LFTs and BMP continue to be within normal limits. WBC count was back up to 14 but she also had received Solu-Medrol. A repeat CT scan of the abdomen/pelvis with IV contrast was performed on the evening of 10/22 which was reviewed with the reading radiologist on the phone-her celiac axis and SMA and YUN are clearly patent and there is no evidence of any ischemic bowel or abnormalities in the area of her pain. Her intrahepatic ducts were mildly dilated compared to previous, however she has normal LFTs and no right upper quadrant pain. She continued to have distal thoracic aorta intraluminal thrombus. I discussed the case with vascular surgeon on-call who recommended against anticoagulation at this time. Procalcitonin was negative Does have thickened bladder wall on CT-however, urinalysis is normal and not consistent with urinary tract infection Her antibiotics were switched to Cipro and Flagyl to cover for GI source of infection including colitis. Perhaps she had a mild ischemic colitis due to the previous hypotension upon admission which caused her lactate to become elevated, but not significant enough to cause changes on CT scan. Currently, her left lower quadrant pain is significantly improved but still present. She had a small amount of bright red blood per rectum on one day of admission. She is not agreeable to having a colonoscopy at the same time as her EGD as she reports she had an asthma exacerbation the last time she had a colonoscopy. She says she will consider this as an outpatient in the future Lactate has now returned to normal, LFTs and chemistry panel are normal, and her leukocytosis is now completely resolved. She remains afebrile. Now tolerating clear liquids-advance likely to low fiber diet tomorrow as tolerated -DC IV fluids -Continue antibiotics with IV Cipro and Flagyl to cover for GI source of infection-Day #3 -Follow CBC, CMP in the morning -Continue IV morphine as needed for pain control (2) Pneumonia: Left lower lobe patchy groundglass infiltrate and atelectasis seen on both CT scans of the abdomen/pelvis. Chest x-ray within normal limits. She is no longer really having any signs or symptoms of pneumonia at this time. She had been treated with a course of Levaquin just prior to admission and perhaps this is residual infiltrate radiographically. -Nonetheless, will continue doxycycline to cover for pneumonia/Bronchitis -DC'd cefepime and vancomycin, MRSA swab negative -Follow radiographically until resolution on imaging as she is a smoker and is at risk for lung cancer-I discussed this with the patient (3) COPD exacerbation: Apparently had shortness of breath and wheezing on admission which is now resolved -Discontinued the IV steroids Which were ordered on admission -Continue nebulizer treatments -encouraged smoking cessation (4) Acute kidney injury: Creatinine 1.6 upon admission likely secondary to prerenal state and dehydration from nausea and vomiting Creatinine now improved to 0.6, has good urine output -Continue IV fluids -Follow BMP in the morning (5) Hypotension: Was significantly hypotensive upon arrival in the ER with systolic blood pressure in the 60s which improved with IV fluid resuscitation Hypotension likely due to acute illness but also is taking both prazosin and clonidine Perhaps this did lead to a mild ischemic colitis As above -Okay to DC IV fluids -Continue treatment with antibiotics as above Blood pressures are now within normal limits -Holding clonidine and prazosin, but will restart clonidine tonight and consider restarting prazosin if blood pressures still tolerating this -Follow blood pressures (6) Admitted to substance misuse detoxification center: Recent detoxification from Xanax and a 30-day stay at a drug rehab center -Would not give any benzodiazepines here -We will hold home prazosin, and will restart home clonidine this evening (7) Drug dependence: Benzodiazepine dependence as above, recently completed rehab (8) Bone lesion: A 3 mm sclerotic bone lesion visualized in the right ilium on CT of the abdomen/pelvis-to be considered metastatic lesion until proven otherwise -Radiology recommends mammogram and possibly nuclear bone scan-these can be done as an outpatient She did have a colonoscopy 2 years ago that was reportedly normal She does have a left lower lobe groundglass opacity as above-could consider pulmonary malignancy-need to follow pulmonary imaging to resolution as above -Also has distal circumferential esophageal thickening noted on CT scan-does have a long history of GERD and smoking-she had an EGD here which only showed duodenal ulcers but no cancer -Appreciate GI consultation (9) Thrombocytosis: Platelets in the 800s on admission indicative of an acute phase reactant Continues to improve and is down to 500 at this time With antibiotic treatment -Follow CBC (10) Leukocytosis: As above, WBC count significantly elevated at 23K on admission and now Resolved -Secondary to infection -Continue to follow CBC -Follow blood cultures-No growth to date (11) Aortic mural thrombus: Distal descending thoracic aortic intraluminal thrombus seen. She has moderate atherosclerotic plaque throughout her aorta as well and its likely related to plaque buildup As mentioned above, discussed case with vascular surgery who does not think she needs anticoagulation -We will put her on antiplatelet with Plavix (no aspirin due to duodenal ulcers) and a statin at this time for atherosclerosis of the aorta -Appreciate vascular surgery consultation (12) Renal artery aneurysm: Partially calcified and seen on the right renal artery on imaging Renal function is normal at this time Appreciate vascular surgery consultation-recommend nothing urgent at this time- recommend six-month follow-up ultrasound of the renal artery (13) Nausea & vomiting: As above, now resolved (14) Anemia: Hemoglobin had decreased to 9, but is now back up to 10.4-was likely somewhat hemo-dilutional, But is also iron deficient on labs Is normocytic, no gross bleeding from anywhere on history or on examination or on imaging -Ferritin is low normal at 39, transferrin saturation is low at 13%, B12 and folate are normal Awaiting Hemoccult stool - EGD showed 2 duodenal ulcers that are not actively bleeding, however they may have had some microscopic bleeding -Will follow CBC (15) Esophageal thickening: Noted distal circumferential esophageal thickening on CT scan -EGD without tumor in the esophagus (16) Peptic ulcer of duodenum: 2 ulcers seen in the duodenum on EGD here -Start Protonix 40 mg p.o. twice daily x2 months -Start Carafate 1 g p.o. before meals at bedtime (17) Hypokalemia: Replaced with oral potassium -Follow BMP in the morning (18) DVT prophylaxis: Lovenox subcu Disposition-improving If tolerating regular diet by tomorrow, will be discharged to the long-term house, case management is involved Subjective Patient still having left lower quadrant pain but is a little bit improved from previous. She is having some cramping after being given magnesium citrate today but no bowel movement yet She had an EGD today which showed 2 duodenal ulcers that were not actively bleeding. She denies any further nausea or vomiting. She is tolerating a liquids diet and is feeling very hungry. Denies cough or shortness of breath. Review of Systems Review of Systems: All systems reviewed & are unremarkable except as noted in HPI & below Physical Exam Constitutional: well developed and average body habitus; no acute distress Eyes: PERRL, conjunctivae normal, anicteric sclerae ENMT: external ear and nose normal, oropharynx normal Neck: trachea midline, no thyromegaly Respiratory: normal respiratory effort, lungs clear to auscultation Cardiovascular: RRR, no murmur, no edema Gastrointestinal (Abdomen): Inspection/Auscultation: abdomen normal to inspection and normal bowel sounds Percussion/Palpation: + abdomen tender (Now only mild TTP in the LLQ without guarding); no guarding, abdomen not rigid, no hepatosplenomegaly and no hernia Musculoskeletal: Extremities: extremities normal to inspection; no cyanosis and no clubbing Skin: no rashes, warm and dry Neurologic: moves all extremities and awake; no focal motor deficits Psychiatric: A+Ox3, euthymic affect Orientation: alert and oriented x 3 Results & Data Vital Signs (Past 12 Hours) Vital Signs Temp Pulse Pulse Resp BP BP Pulse Ox 10/24/18 18:43 36.6 C 88 20 132/87 98 10/24/18 15:55 81 10/24/18 15:28 77 97 10/24/18 15:04 36.9 C 77 20 142/88 H 95 10/24/18 13:19 75 18 138/87 95 10/24/18 13:03 73 18 134/87 95 10/24/18 12:49 36.5 C 70 18 132/82 95 10/24/18 12:12 36.6 C 67 18 145/82 H 95 10/24/18 11:09 36.9 C 68 18 150/87 H 95 10/24/18 08:15 70 10/24/18 07:16 36.9 C 63 16 142/81 H 95 10/24/18 07:12 62 14 94 Laboratory Results 10/24/18 10/24/18 Range/Units 06:50 06:50 WBC 8.71 (4.8-10.8) K/uL RBC 3.44 L (4.2-5.4) M/uL Hgb 10.4 L (12.0-16.0) g/dL Hct 32.0 L (37-47) % MCV 93.0 (80-100) fL MCH 30.2 (25-34) pg MCHC 32.5 (32-36) g/dL RDW Std Deviation 46.8 H (36.4-46.3) fL RDW Coeff of Uriah 13.8 (11.5-14.5) % Plt Count 500 H (130-400) K/uL MPV 8.6 (7.4-10.4) fL Immature Gran % (Auto) 0.3 % Neut % (Auto) 41.7 % Lymph % (Auto) 48.0 % Rapides % (Auto) 9.5 % Eos % (Auto) 0.3 % Baso % (Auto) 0.2 % Immature Gran # (Auto) 0.03 H (0.00-0.02) K/uL Neut # (Auto) 3.62 (1.4-6.5) K/uL Lymph # (Auto) 4.18 H (1.2-3.4) K/uL Rapides # (Auto) 0.83 H (0.11-0.59) K/uL Eos # (Auto) 0.03 (0-0.5) K/uL Baso # (Auto) 0.02 (0-0.2) K/uL Sodium 142 (136-145) mmol/L Potassium 3.4 L (3.5-5.1) mmol/L Chloride 108 H (98-107) mmol/L Carbon Dioxide 30 (21-32) mmol/L Anion Gap 4.0 (3-11) BUN 8 D (7-18) mg/dl Creatinine 0.62 (0.6-1.2) mg/dl Est Cr Clr Drug Dosing 99.0 ml/min Est GFR ( Amer) 114.4 Est GFR (Non-Af Amer) 98.7 BUN/Creatinine Ratio 13.4 (10-20) Glucose 80 (70-99) mg/dl Calcium 8.3 L (8.5-10.1) mg/dl Total Bilirubin 0.4 (0.2-1) mg/dl Direct Bilirubin < 0.1 (0-0.2) mg/dl AST 7 L (15-37) U/L ALT 14 (12-78) U/L Alkaline Phosphatase 59 (45-117) U/L Total Protein 6.5 (6.4-8.2) gm/dl Albumin 2.7 L (3.4-5.0) gm/dl PG Care Time/CCT Total # of Minutes Spent Total Time Spent with Patient: Total time spent is greater than 50% in coordination of care (as documented) at patient's floor/unit and/or counseling patient: (1) Leukocytosis Leukocytosis type: unspecified Qualified Code(s): D72.829 - Elevated white blood cell count, unspecified (2) Hypotension Hypotension type: unspecified hypotension type Qualified Code(s): I95.9 - Hypotension, unspecified (3) Pneumonia Laterality: left Lung location: lower lobe of lung Pneumonia type: due to unspecified organism Qualified Code(s): J18.1 - Lobar pneumonia, unspecified organism
[2018-10-24] MEDS: PANTOprazole 40 MG TAB PO SCH (20:04)
[2018-10-24] MEDS: cloNIDine HCl 0.1 MG TAB PO SCH (20:38)
[2018-10-24] MEDS: SUCRALFATE 1 GM/10 ML UDC PO SCH (20:40)
[2018-10-24] MEDS: CHOLECALCIFEROL 1,000 UNITS TAB PO SCH (21:09)
[2018-10-25] MEDS: MoRPHine SULFATE 4 MG/ML 1 ML CARP\\VIAL IV PRN ×2 (01:09→05:24)
[2018-10-25] MEDS: metroNIDAZOLE 500 MG/100 ML BAG IV SCH ×3 (05:00→20:02)
[2018-10-25 07:05] LABS: Hematocrit (blood only) 34.8 % (37-47); Hemoglobin 11.1 g/dL (12.0-16.0); Mean Corpuscular Hgb Conc 31.9 g/dL (32-36); Mean Corpuscular Volume 94.8 fL (80-100); Mean Platelet Volume 9.3 fL (7.4-10.4); Platelet Count 551 K/uL (130-400); RDW Coefficient of Variation 13.8 % (11.5-14.5); RDW Standard Deviation 47.9 fL (36.4-46.3); Red Blood Count 3.67 M/uL (4.2-5.4); White Blood Count 7.44 K/uL (4.8-10.8)
[2018-10-25] MEDS: ALBUT/IPRATROP 3MG/0.5MG NEB 3 ML VIAL NEB SCH ×4 (07:11→19:02)
[2018-10-25 07:33] LABS: Basophils # (auto) 0.04 K/uL (0-0.2); Basophils % (auto) 0.5 %; Eosinophils # (auto) 0.16 K/uL (0-0.5); Eosinophils % (auto) 2.2 %; Immature Granulocytes # (auto) 0.03 K/uL (0.00-0.02); Immature Granulocytes % (auto) 0.4 %; Lymphocytes # (auto) 3.75 K/uL (1.2-3.4); Lymphocytes % (auto) 50.4 %; Monocytes # (auto) 0.84 K/uL (0.11-0.59); Monocytes % (auto) 11.3 %; Neutrophils # (auto) 2.62 K/uL (1.4-6.5); Neutrophils % (auto) 35.2 %
[2018-10-25 07:40] LABS: Alanine Aminotransferase 15 U/L (12-78); Albumin Level 2.7 gm/dl (3.4-5.0); Alkaline Phosphatase 60 U/L (45-117); Aspartate Aminotransferase 12 U/L (15-37); BUN Creatinine Ratio 13.3 (10-20); Bilirubin Direct < 0.1 mg/dl (0-0.2); Bilirubin,Total 0.3 mg/dl (0.2-1); Blood Urea Nitrogen 10 mg/dl (7-18); Carbon Dioxide 32 mmol/L (21-32); Chloride 107 mmol/L (98-107); Creatinine Clr Calc Pharmacy 84.3 ml/min; Est GFR (African American) 104.5; Est GFR (Non-African American) 90.1; Glucose 87 mg/dl (70-99); Magnesium 1.9 mg/dl (1.8-2.4); Potassium 5.2 mmol/L (3.5-5.1); Sodium 142 mmol/L (136-145); Total Protein 6.4 gm/dl (6.4-8.2)
[2018-10-25] MEDS: CITALOPRAM 40 MG TAB PO SCH (08:20)
[2018-10-25] MEDS: NICOTINE 14 MG/24 HR PATCH TD SCH (08:20)
[2018-10-25] MEDS: CYCLOBENZAPRINE HCL 10 MG TAB PO SCH (08:20)
[2018-10-25] MEDS: DOXYCYCLINE HYCLATE 100 MG CAP PO SCH ×2 (08:20→21:49)
[2018-10-25] MEDS: ATORVASTATIN 40 MG TAB PO SCH (08:21)
[2018-10-25] MEDS: PANTOprazole 40 MG TAB PO SCH ×2 (08:21→21:49)
[2018-10-25] MEDS: CIPROFLOXACIN 400 MG/200 ML BAG IV SCH ×2 (08:21→20:02)
[2018-10-25] MEDS: CLOPIDOGREL BISULFATE 75 MG TAB PO SCH (08:21)
[2018-10-25] MEDS: FOLIC ACID 1 MG TAB PO SCH (09:47)
[2018-10-25] MEDS: CHOLECALCIFEROL 1,000 UNITS TAB PO SCH ×2 (09:48→21:49)
[2018-10-25] MEDS: SUCRALFATE 1 GM/10 ML UDC PO SCH ×4 (09:48→21:49)
[2018-10-25] MEDS: OXYCODONE/ACETAMINOPHEN 5mg/325mg TAB PO PRN ×4 (09:48→22:30)
[2018-10-25] MEDS ORDERED: BISACODYL 10 MG SUPP PR STA (14:06)
--- NOTE | 2018-10-25 14:08 | Hospitalist Progress Note ---
Date of Service October 25, 2018 Assessment & Plan (1) Abdominal pain: This patient is a 57-year-old female with a history of smoking, benzodiazepine dependence, GERD, who presented with 2 days of worsening left lower quadrant pain as well as nausea and vomiting after being treated recently for an acute sinusitis with Levaquin. She also had been having a cough and some wheezing reportedly which had improved prior to admission. She was found to have a leukocytosis with a white blood cell count of 23 K, thrombocytosis in the 800s, acute kidney injury with creatinine of 1.6, and a patchy groundglass consolidation in the left lower lobe on CT scan consistent with possible pneumonia. She was afebrile and lactate at the time of admission was 2.0. She was admitted and placed on IV Solu-Medrol, cefepime and vancomycin to treat for healthcare associated pneumonia. Leukocytosis initially significantly improved the day after admission down to 11 Her left lower quadrant pain got significantly worse on 10/22 and lactate became more elevated at 2.8. LFTs and BMP continue to be within normal limits. WBC count was back up to 14 but she also had received Solu-Medrol. A repeat CT scan of the abdomen/pelvis with IV contrast was performed on the evening of 10/22 which was reviewed with the reading radiologist on the phone-her celiac axis and SMA and YUN are clearly patent and there is no evidence of any ischemic bowel or abnormalities in the area of her pain. Her intrahepatic ducts were mildly dilated compared to previous, however she has normal LFTs and no right upper quadrant pain. She continued to have distal thoracic aorta intraluminal thrombus. I discussed the case with vascular surgeon on-call who recommended against anticoagulation at this time. Procalcitonin was negative Does have thickened bladder wall on CT-however, urinalysis is normal and not consistent with urinary tract infection Her antibiotics were switched to Cipro and Flagyl to cover for GI source of infection including colitis. Perhaps she had a mild ischemic colitis due to the previous hypotension upon admission which caused her lactate to become elevated, but not significant enough to cause changes on CT scan. Currently, her left lower quadrant pain is slightly improved but persists. She had a small amount of bright red blood per rectum on the second day of admission. Initially, she was not agreeable to having a colonoscopy at the same time as her EGD as she reports she had an asthma exacerbation the last time she had a colonoscopy. Now is agreeable to colonoscopy if pain is not improving by Saturday Lactate has now returned to normal, LFTs and chemistry panel are normal, and her leukocytosis is now completely resolved. She remains afebrile. Advanced diet to low fiber for breakfast and lunch today, however with persistent pain and constipation, will decrease her back to clear liquids -No longer on IV fluids -Continue antibiotics with IV Cipro and Flagyl to cover for GI source of infection-Day #4 -Continue to follow CBC, CMP in the morning -Continue IV morphine as needed for pain control, but also added Percocet 1 tab p.o. every 4 hours as needed pain to see if she can transition to oral pain medicine -Start MiraLAX 17 g p.o. 3 times daily and give a bisacodyl suppository x1 in case constipation causing left lower quadrant pain -Plan for colonoscopy on Saturday if pain not improved with moving bowels (2) Pneumonia: Left lower lobe patchy groundglass infiltrate and atelectasis seen on both CT scans of the abdomen/pelvis. Chest x-ray within normal limits. She is no longer really having any signs or symptoms of pneumonia at this time. She had been treated with a course of Levaquin just prior to admission and perhaps this is residual infiltrate radiographically. -Nonetheless, will continue doxycycline to cover for pneumonia/Bronchitis -DC'd cefepime and vancomycin, MRSA swab negative -Follow radiographically until resolution on imaging as she is a smoker and is at risk for lung cancer-I discussed this with the patient (3) COPD exacerbation: Apparently had shortness of breath and wheezing on admission which is now resolved -Discontinued the IV steroids Which were ordered on admission -Continue nebulizer treatments -encouraged smoking cessation (4) Acute kidney injury: Creatinine 1.6 upon admission likely secondary to prerenal state and dehydration from nausea and vomiting Creatinine now improved to 0.7 after receiving IV fluids, has good urine output -Follow BMP in the morning (5) Hypotension: Was significantly hypotensive upon arrival in the ER with systolic blood pressure in the 60s which improved with IV fluid resuscitation Hypotension likely due to acute illness but also is taking both prazosin and clonidine Perhaps this did lead to a mild ischemic colitis As above -Have since discontinued the IV fluids -Continue treatment with antibiotics as above Blood pressures are now within normal limits, however slightly low today and felt lightheaded after restarting clonidine last evening -We will permanently discontinue clonidine due to side effects -We will continue to hold prazosin and consider restarting in the future as this helped her with her nightmares from PTSD -Follow blood pressures (6) Admitted to substance misuse detoxification center: Recent detoxification from Xanax and a 30-day stay at a drug rehab center -Would not give any benzodiazepines here -Clonidine causes lightheadedness and low blood pressures-will not give this any further as above -Continue to hold home prazosin and consider restarting the future as above (7) Drug dependence: Benzodiazepine dependence as above, recently completed rehab (8) Bone lesion: A 3 mm sclerotic bone lesion visualized in the right ilium on CT of the abdomen/pelvis-to be considered metastatic lesion until proven otherwise -Radiology recommends mammogram and possibly nuclear bone scan-these can be done as an outpatient She did have a colonoscopy 2 years ago that was reportedly normal-now possible colonoscopy to be done here on Saturday She does have a left lower lobe groundglass opacity as above-could consider pulmonary malignancy-need to follow pulmonary imaging to resolution as above -Also has distal circumferential esophageal thickening noted on CT scan-does have a long history of GERD and smoking-she had an EGD here which only showed duodenal ulcers but no cancer -Appreciate GI consultation (9) Thrombocytosis: Platelets in the 800s on admission indicative of an acute phase reactant Continues to improve and was down to 500; now back up to 551-must have some sort of highly inflammatory state going on despite treatment with IV antibiotics -Follow CBC (10) Leukocytosis: As above, WBC count significantly elevated at 23K on admission and now continues to trend downward to 7 -Secondary to infection -Continue to follow CBC -Follow blood cultures-No growth to date (11) Aortic mural thrombus: Distal descending thoracic aortic intraluminal thrombus seen. 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 and seen on the right renal artery on imaging Renal function is normal at this time Appreciate vascular surgery consultation-recommend nothing urgent at this time- recommend six-month follow-up ultrasound of the renal artery (13) Nausea & vomiting: As above, now resolved (14) Anemia: Hemoglobin had decreased to 9, but is now back up to 11.1-was likely somewhat hemo-dilutional, But is also iron deficient on labs Is normocytic, no gross bleeding from anywhere on history or on examination or on imaging -Ferritin is low normal at 39, transferrin saturation is low at 13%, B12 and folate are normal Awaiting Hemoccult stool - EGD showed 2 duodenal ulcers that are not actively bleeding, however they may have had some microscopic bleeding -Will follow CBC (15) Esophageal thickening: Noted distal circumferential esophageal thickening on CT scan -EGD without tumor in the esophagus (16) Peptic ulcer of duodenum: 2 ulcers seen in the duodenum on EGD here -Started Protonix 40 mg p.o. twice daily x2 months -Started Carafate 1 g p.o. before meals at bedtime (17) Hypokalemia: Replaced with oral potassium and now is elevated -Follow BMP in the morning (18) DVT prophylaxis: Lovenox subcu Disposition--continued stay for persistent abdominal pain, also does not have transportation to her [facility] house until Saturday Subjective Patient still having left lower quadrant pain today but yet was hungry for regular food this morning. She is still taking IV morphine as often as she can. I discussed the case with the GI doctor today. The patient still has had no bowel movement except for a very small 1 to 2 days ago. She reports feeling very lightheaded and not feeling well today. Of note, she was restarted on clonidine last night. She is agreeable to having a colonoscopy now on Saturday if pain does not improve with getting her bowels moving telemetry with normal sinus rhythm with rates in the 60s to 100 Remains afebrile. Review of Systems Review of Systems: All systems reviewed & are unremarkable except as noted in HPI & below Physical Exam Constitutional: well developed and average body habitus; no acute distress Eyes: PERRL, conjunctivae normal, anicteric sclerae ENMT: external ear and nose normal, oropharynx normal Neck: trachea midline, no thyromegaly Respiratory: normal respiratory effort, lungs clear to auscultation Cardiovascular: RRR, no murmur, no edema Gastrointestinal (Abdomen): Inspection/Auscultation: abdomen normal to inspection and normal bowel sounds Percussion/Palpation: + abdomen tender (+TTP in the LLQ without guarding, similar to previous); no guarding, abdomen not rigid, no hepatosplenomegaly and no hernia Musculoskeletal: Extremities: extremities normal to inspection; no cyanosis and no clubbing Skin: no rashes, warm and dry Neurologic: moves all extremities and awake; no focal motor deficits Psychiatric: Orientation: alert and oriented x 3 Results & Data Vital Signs (Past 12 Hours) Vital Signs Temp Pulse Pulse Resp BP Pulse Ox 10/25/18 11:55 36.8 C 84 16 103/63 93 10/25/18 11:10 91 H 18 93 10/25/18 10:41 66 10/25/18 07:13 77 18 95 10/25/18 07:00 36.8 C 92 H 18 134/83 94 10/25/18 04:00 36.7 C 65 20 128/83 95 Laboratory Results 10/25/18 10/25/18 Range/Units 06:43 06:43 WBC 7.44 (4.8-10.8) K/uL RBC 3.67 L (4.2-5.4) M/uL Hgb 11.1 L (12.0-16.0) g/dL Hct 34.8 L (37-47) % MCV 94.8 (80-100) fL MCH 30.2 (25-34) pg MCHC 31.9 L (32-36) g/dL RDW Std Deviation 47.9 H (36.4-46.3) fL RDW Coeff of Uriah 13.8 (11.5-14.5) % Plt Count 551 H (130-400) K/uL MPV 9.3 (7.4-10.4) fL Immature Gran % (Auto) 0.4 % Neut % (Auto) 35.2 % Lymph % (Auto) 50.4 % Chaves % (Auto) 11.3 % Eos % (Auto) 2.2 % Baso % (Auto) 0.5 % Immature Gran # (Auto) 0.03 H (0.00-0.02) K/uL Neut # (Auto) 2.62 (1.4-6.5) K/uL Lymph # (Auto) 3.75 H (1.2-3.4) K/uL Chaves # (Auto) 0.84 H (0.11-0.59) K/uL Eos # (Auto) 0.16 (0-0.5) K/uL Baso # (Auto) 0.04 (0-0.2) K/uL Sodium 142 (136-145) mmol/L Potassium 5.2 H D (3.5-5.1) mmol/L Chloride 107 (98-107) mmol/L Carbon Dioxide 32 (21-32) mmol/L Anion Gap 3.0 (3-11) BUN 10 (7-18) mg/dl Creatinine 0.73 (0.6-1.2) mg/dl Est Cr Clr Drug Dosing 84.3 ml/min Est GFR ( Amer) 104.5 Est GFR (Non-Af Amer) 90.1 BUN/Creatinine Ratio 13.3 (10-20) Glucose 87 (70-99) mg/dl Calcium 9.0 (8.5-10.1) mg/dl Magnesium 1.9 (1.8-2.4) mg/dl Total Bilirubin 0.3 (0.2-1) mg/dl Direct Bilirubin < 0.1 (0-0.2) mg/dl AST 12 L (15-37) U/L ALT 15 (12-78) U/L Alkaline Phosphatase 60 (45-117) U/L Total Protein 6.4 (6.4-8.2) gm/dl Albumin 2.7 L (3.4-5.0) gm/dl PG Care Time/CCT Total # of Minutes Spent Total Time Spent with Patient: Total time spent is greater than 50% in coordination of care (as documented) at patient's floor/unit and/or counseling patient: (1) Leukocytosis Leukocytosis type: unspecified Qualified Code(s): D72.829 - Elevated white blood cell count, unspecified (2) Hypotension Hypotension type: unspecified hypotension type Qualified Code(s): I95.9 - Hypotension, unspecified (3) Pneumonia Laterality: left Lung location: lower lobe of lung Pneumonia type: due to unspecified organism Qualified Code(s): J18.1 - Lobar pneumonia, unspecified organism
[2018-10-25] MEDS: POLYETHYLENE (MIRALAX) 17 GM PACK PO SCH ×2 (14:46→21:45)
[2018-10-25] MEDS: DOCUSATE SODIUM/SENNA 50/8.6MG TAB PO SCH ×2 (14:46→21:49)
--- NOTE | 2018-10-25 16:07 | Gastroenterology Progress Note ---
Date of Service October 25, 2018 Assessment & Plan (1) Esophageal thickening: none on EGD Fe def anemia--duodenal ulcers can expain LLQ pain--in case constipation contributing to this will give miralax bowel prep tonight. OK to try low fiber tonight per patient request but go back to clears tomorrow in case she needs continue prep and colonscopy. If her pain resolves with laxatives then outpt colonoscopy. With elevated WBC initially some ischemic colitis could be in the differential not seen on CT so if not forced to do colonscopy by having continued symptoms then would ideally do as outpt. intrahepatic duct dilation on CT--no RUQ pain to suggest biliary process and LFTS normal. Elective MRCP. sclerotic lesion on bone--EGD negative. Subjective cc f/u esophageal thickening and LLQ pain HPI Per DR Schreiber the esophagus looked good on EGD but had 2 duodenal ulcers. She does not have any upper abd pain. Had minimal response to mag citrate 2 days ago. Has persistent 8/10 LLQ abd pain requring IV narcotics. Tolerating liquid diet and wants to try solid diet for supper. Review of Systems Respiratory: no dyspnea Cardiovascular: no chest pain Physical Exam Respiratory: normal respiratory effort, lungs clear to auscultation Cardiovascular: RRR, no murmur, no edema Gastrointestinal (Abdomen): pos bs, soft, LLQ guarding but no rebound Psychiatric: A+Ox3, euthymic affect Results & Data Vital Signs (Past 12 Hours) Vital Signs Temp Pulse Pulse Resp BP Pulse Ox 10/25/18 15:21 36.5 C 88 16 116/67 98 10/25/18 14:51 82 18 93 10/25/18 11:55 36.8 C 84 16 103/63 93 10/25/18 11:10 91 H 18 93 10/25/18 10:41 66 10/25/18 07:13 77 18 95 10/25/18 07:00 36.8 C 92 H 18 134/83 94
[2018-10-25] MEDS ORDERED: POLYETHYLENE (MIRALAX) 17 GM PACK PO SCH (16:15)
[2018-10-25] MEDS: THIAMINE HCL 100 MG TAB PO SCH (17:44)
[2018-10-25] MEDS: ENOXAPARIN INJ 40 MG/0.4 ML SYR SQ SCH (17:45)
[2018-10-25] MEDS: TRAZODONE HCL 100 MG TAB PO SCH (21:49)
[2018-10-26] MEDS: OXYCODONE/ACETAMINOPHEN 5mg/325mg TAB PO PRN ×5 (02:55→21:32)
[2018-10-26] MEDS: metroNIDAZOLE 500 MG/100 ML BAG IV SCH ×3 (02:58→19:47)
[2018-10-26 07:02] LABS: Basophils # (auto) 0.05 K/uL (0-0.2); Basophils % (auto) 0.6 %; Eosinophils # (auto) 0.22 K/uL (0-0.5); Eosinophils % (auto) 2.7 %; Hemoglobin 10.9 g/dL (12.0-16.0); Immature Granulocytes # (auto) 0.04 K/uL (0.00-0.02); Immature Granulocytes % (auto) 0.5 %; Lymphocytes # (auto) 3.91 K/uL (1.2-3.4); Lymphocytes % (auto) 48.2 %; Mean Corpuscular Hgb Conc 32.1 g/dL (32-36); Mean Corpuscular Volume 95.8 fL (80-100); Mean Platelet Volume 9.1 fL (7.4-10.4); Monocytes # (auto) 0.86 K/uL (0.11-0.59); Monocytes % (auto) 10.6 %; Neutrophils # (auto) 3.04 K/uL (1.4-6.5); Neutrophils % (auto) 37.4 %; Platelet Count 544 K/uL (130-400); RDW Coefficient of Variation 13.9 % (11.5-14.5); RDW Standard Deviation 48.6 fL (36.4-46.3); Red Blood Count 3.55 M/uL (4.2-5.4); White Blood Count 8.12 K/uL (4.8-10.8)
[2018-10-26] MEDS: ALBUT/IPRATROP 3MG/0.5MG NEB 3 ML VIAL NEB SCH ×4 (07:05→19:16)
[2018-10-26 07:26] LABS: Alanine Aminotransferase 16 U/L (12-78); Albumin Level 2.8 gm/dl (3.4-5.0); Aspartate Aminotransferase 15 U/L (15-37); BUN Creatinine Ratio 15.2 (10-20); Bilirubin Direct < 0.1 mg/dl (0-0.2); Blood Urea Nitrogen 13 mg/dl (7-18); Calcium 8.7 mg/dl (8.5-10.1); Carbon Dioxide 33 mmol/L (21-32); Chloride 106 mmol/L (98-107); Creatinine Clr Calc Pharmacy 72.4 ml/min; Est GFR (African American) 86.9; Glucose 90 mg/dl (70-99); Potassium 5.1 mmol/L (3.5-5.1); Sodium 141 mmol/L (136-145)
[2018-10-26 07:29] LABS: Alkaline Phosphatase 63 U/L (45-117); Bilirubin,Total 0.3 mg/dl (0.2-1); Total Protein 6.3 gm/dl (6.4-8.2)
[2018-10-26] MEDS: CHOLECALCIFEROL 1,000 UNITS TAB PO SCH ×2 (07:50→21:32)
[2018-10-26] MEDS: CITALOPRAM 40 MG TAB PO SCH (07:50)
[2018-10-26] MEDS: CIPROFLOXACIN 400 MG/200 ML BAG IV SCH ×2 (07:50→19:50)
[2018-10-26] MEDS: DOXYCYCLINE HYCLATE 100 MG CAP PO SCH ×2 (07:51→21:32)
[2018-10-26] MEDS: CLOPIDOGREL BISULFATE 75 MG TAB PO SCH (07:51)
[2018-10-26] MEDS: DOCUSATE SODIUM/SENNA 50/8.6MG TAB PO SCH ×2 (07:51→21:32)
[2018-10-26] MEDS: PANTOprazole 40 MG TAB PO SCH ×2 (07:51→21:32)
[2018-10-26] MEDS: CYCLOBENZAPRINE HCL 10 MG TAB PO SCH (07:51)
[2018-10-26] MEDS: THIAMINE HCL 100 MG TAB PO SCH (07:51)
[2018-10-26] MEDS: POLYETHYLENE (MIRALAX) 17 GM PACK PO SCH ×2 (07:51→11:23)
[2018-10-26] MEDS: FOLIC ACID 1 MG TAB PO SCH (07:52)
[2018-10-26] MEDS: ATORVASTATIN 40 MG TAB PO SCH (07:52)
[2018-10-26] MEDS: NICOTINE 14 MG/24 HR PATCH TD SCH (07:52)
[2018-10-26] MEDS: SUCRALFATE 1 GM/10 ML UDC PO SCH ×4 (08:22→21:32)
--- NOTE | 2018-10-26 13:41 | Gastroenterology Progress Note ---
Date of Service October 26, 2018 Assessment & Plan (1) Esophageal thickening: none on EGD Fe def anemia--duodenal ulcers can expain LLQ pain--No improvement with BMs so plan colonscopy tomorrow. More bowel prep today. Proc and risks explained to patient which include but not limited to med reaction, bleeding, perforation, aspiration, and missed lesions. intrahepatic duct dilation on CT--no RUQ pain to suggest biliary process and LFTS normal. Elective MRCP. sclerotic lesion on bone--EGD negative, colonoscopy tomorrow--other w/u per hospitalist duodenal ulcers--continue PPI bid, stool for H.pylori Ag pending. Subjective cc f/u abd pain HPI Pt states she drank most of miralax bowel prep and had lot of stools output but most recent stool in last hour still brown. No improvement in LLQ pain. Review of Systems Respiratory: + cough; no dyspnea Cardiovascular: no chest pain Physical Exam Constitutional: WD/WN, vitals as above Respiratory: normal respiratory effort, lungs clear to auscultation Cardiovascular: RRR, no murmur, no edema Gastrointestinal (Abdomen): pos bs, soft, no guarding nor rebound Psychiatric: A+Ox3, euthymic affect Results & Data Vital Signs (Past 12 Hours) Vital Signs Temp Pulse Resp BP Pulse Ox 10/26/18 11:12 74 18 93 10/26/18 07:47 36.8 C 79 20 106/67 94 10/26/18 07:05 60 18 94
[2018-10-26] MEDS ORDERED: POLYETHYLENE (MIRALAX) 17 GM PACK PO SCH (13:45)
[2018-10-26] MEDS: ENOXAPARIN INJ 40 MG/0.4 ML SYR SQ SCH (16:31)
--- NOTE | 2018-10-26 18:17 | Hospitalist Progress Note ---
Date of Service October 26, 2018 Assessment & Plan (1) Abdominal pain: This patient is a 57-year-old female with a history of smoking, benzodiazepine dependence, GERD, who presented with 2 days of worsening left lower quadrant pain as well as nausea and vomiting after being treated recently for an acute sinusitis with Levaquin. She also had been having a cough and some wheezing reportedly which had improved prior to admission. She was found to have a leukocytosis with a white blood cell count of 23 K, thrombocytosis in the 800s, acute kidney injury with creatinine of 1.6, and a patchy groundglass consolidation in the left lower lobe on CT scan consistent with possible pneumonia. She was afebrile and lactate at the time of admission was 2.0. She was admitted and placed on IV Solu-Medrol, cefepime and vancomycin to treat for healthcare associated pneumonia. Leukocytosis initially significantly improved the day after admission down to 11 Her left lower quadrant pain got significantly worse on 10/22 and lactate became more elevated at 2.8. LFTs and BMP continue to be within normal limits. WBC count was back up to 14 but she also had received Solu-Medrol. A repeat CT scan of the abdomen/pelvis with IV contrast was performed on the evening of 10/22 which was reviewed with the reading radiologist on the phone-her celiac axis and SMA and YUN are clearly patent and there is no evidence of any ischemic bowel or abnormalities in the area of her pain. Her intrahepatic ducts were mildly dilated compared to previous, however she has normal LFTs and no right upper quadrant pain. She continued to have distal thoracic aorta intraluminal thrombus. I discussed the case with vascular surgeon on-call who recommended against anticoagulation at this time. Procalcitonin was negative Does have thickened bladder wall on CT-however, urinalysis is normal and not consistent with urinary tract infection. Uterus and adnexa appeared normal. Her antibiotics were switched to Cipro and Flagyl to cover for GI source of infection including colitis. Perhaps she had a mild ischemic colitis due to the previous hypotension upon admission which caused her lactate to become elevated, but not significant enough to cause changes on CT scan. Currently, her left lower quadrant pain is slightly improved but persists. She had a small amount of bright red blood per rectum on the second day of admission. She was initially not agreeable to a colonoscopy. Lactate has now returned to normal, LFTs and chemistry panel are normal, and her leukocytosis is now completely resolved. She remains afebrile. Was treated with a bowel prep to see if relieving her constipation would relieve her left lower quadrant pain-this did not relieve her pain -Plan for colonoscopy on Saturday -Continue antibiotics with IV Cipro and Flagyl to cover for GI source of infection-Day #5 -Continue to follow CBC, CMP in the morning -Continue Percocet as needed for pain control-caution with pain meds given history of substance abuse and recent rehab. Will DC IV morphine now (2) Pneumonia: Left lower lobe patchy groundglass infiltrate and atelectasis seen on both CT scans of the abdomen/pelvis. Chest x-ray within normal limits. She is no longer really having any signs or symptoms of pneumonia at this time. She had been treated with a course of Levaquin just prior to admission and perhaps this is residual infiltrate radiographically. -Nonetheless, will continue doxycycline to cover for pneumonia/Bronchitis-today is day #5 -DC'd cefepime and vancomycin after day 1 as above, MRSA swab negative -Follow radiographically until resolution on imaging as she is a smoker and is at risk for lung cancer-I discussed this with the patient (3) COPD exacerbation: Apparently had shortness of breath and wheezing on admission which is now resolved -Discontinued the IV steroids Which were ordered on admission -Continue nebulizer treatments -encouraged smoking cessation (4) Acute kidney injury: Creatinine 1.6 upon admission likely secondary to prerenal state and dehydration from nausea and vomiting Creatinine now improved to 0.8 after receiving IV fluids, has good urine output -Follow BMP in the morning (5) Hypotension: Was significantly hypotensive upon arrival in the ER with systolic blood pressure in the 60s which improved with IV fluid resuscitation Hypotension likely due to acute illness but was also taking both prazosin and clonidine as prescribed to her from her detox/rehab Perhaps this did lead to a mild ischemic colitis As above -Have since discontinued the IV fluids -Continue treatment with antibiotics as above Blood pressures are now within normal limits -Attempts at restarting clonidine led to recurrent lightheadedness and soft blood pressures -will permanently discontinue clonidine due to side effects -We will continue to hold prazosin and consider restarting in the future as this helped her with her nightmares from PTSD -Follow blood pressures (6) Admitted to substance misuse detoxification center: Recent detoxification from Xanax and a 30-day stay at a drug rehab center -Would not give any benzodiazepines here -Clonidine causes lightheadedness and low blood pressures-will not give this any further as above -Continue to hold home prazosin and consider restarting the future as above (7) Drug dependence: Benzodiazepine dependence as above, recently completed rehab (8) Bone lesion: A 3 mm sclerotic bone lesion visualized in the right ilium on CT of the abdomen/pelvis-to be considered metastatic lesion until proven otherwise -Radiology recommends mammogram and possibly nuclear bone scan-these can be done as an outpatient She did have a colonoscopy 2 years ago that was reportedly normal-now repeat colonoscopy to be done here on Saturday She does have a left lower lobe groundglass opacity as above-could consider pulmonary malignancy-need to follow pulmonary imaging to resolution as above -Also has distal circumferential esophageal thickening noted on CT scan-does have a long history of GERD and smoking-she had an EGD here which only showed duodenal ulcers but no cancer -Appreciate GI consultation -Follow-up on this as an outpatient (9) Thrombocytosis: Platelets in the 800s on admission indicative of an acute phase reactant Continues to improve and was down to 500; now back up slightly to 544 -must have some sort of highly inflammatory state going on despite treatment with IV antibiotics -Follow CBC -Colonoscopy on Saturday (10) Leukocytosis: As above, WBC count significantly elevated at 23K on admission and has now normalized -Secondary to infection -Continue to follow CBC -Follow blood cultures-No growth to date (11) Aortic mural thrombus: Distal descending thoracic aortic intraluminal thrombus seen. 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 and seen on the right renal artery on imaging Renal function is normal at this time Appreciate vascular surgery consultation-recommend nothing urgent at this time-recommend six-month follow-up ultrasound of the renal artery (13) Nausea & vomiting: Presented with nausea and vomiting Unclear etiology but perhaps due to abdominal pain, peptic ulcer disease -Now resolved (14) Anemia: Hemoglobin had decreased to 9, but is now back up to 10.9-was likely somewhat hemo-dilutional, But is also iron deficient on labs Is normocytic, no gross bleeding from anywhere on history or on examination or on imaging Hemoccult stool negative -Ferritin is low normal at 39, transferrin saturation is low at 13%, B12 and folate are normal - EGD showed 2 duodenal ulcers that are not actively bleeding, however they may have had some microscopic bleeding -Will follow CBC -Check H. pylori stool antigen-pending (15) Esophageal thickening: Noted distal circumferential esophageal thickening on CT scan -EGD without tumor in the esophagus (16) Peptic ulcer of duodenum: 2 ulcers seen in the duodenum on EGD here -Started Protonix 40 mg p.o. twice daily x2 months -Started Carafate 1 g p.o. before meals at bedtime -Checking H. pylori stool antigen-pending (17) Hypokalemia: Replaced with oral potassium and then was elevated, now improved to 5.1 -Follow BMP in the morning (18) DVT prophylaxis: Lovenox subcu-we will hold for colonoscopy tomorrow Disposition--continued stay for persistent abdominal pain, colonoscopy on Saturday If she does not get transportation to the alf house on Saturday, the next time she could go or where transportation be available would be Saturday as per case management. Most likely, she has to stay here until Saturday. Subjective Patient reports multiple bowel movements that are still brown and formed despite doing a full bowel prep last night. She is still having the same left lower quadrant pain. She also asked me to look at her perineum as she thought she squeezed some pus out of a skin lesion there. She denies cough or chest pain, no shortness of breath, no lightheadedness or headache. No blood in the stool. No black stools. I discussed the case with gastroenterology. Review of Systems Review of Systems: All systems reviewed & are unremarkable except as noted in HPI & below Physical Exam Constitutional: well developed and average body habitus; no acute distress Eyes: PERRL, conjunctivae normal, anicteric sclerae Neck: trachea midline, no thyromegaly Respiratory: normal respiratory effort, lungs clear to auscultation Cardiovascular: RRR, no murmur, no edema Gastrointestinal (Abdomen): Inspection/Auscultation: abdomen normal to inspection and normal bowel sounds Percussion/Palpation: + abdomen tender (+TTP in the LLQ without guarding, similar to previous); no guarding, abdomen not rigid, no hepatosplenomegaly and no hernia Musculoskeletal: Extremities: extremities normal to inspection; no cyanosis and no clubbing Skin: no rashes, warm and dry Neurologic: moves all extremities and awake; no focal motor deficits Psychiatric: A+Ox3, euthymic affect Results & Data Vital Signs (Past 12 Hours) Vital Signs Temp Pulse Resp BP Pulse Ox 10/26/18 14:54 36.7 C 80 20 114/82 94 10/26/18 11:12 74 18 93 10/26/18 07:47 36.8 C 79 20 106/67 94 10/26/18 07:05 60 18 94 Laboratory Results 10/26/18 10/26/18 10/25/18 Range/Units 06:43 06:43 21:15 WBC 8.12 (4.8-10.8) K/uL RBC 3.55 L (4.2-5.4) M/uL Hgb 10.9 L (12.0-16.0) g/dL Hct 34.0 L (37-47) % MCV 95.8 (80-100) fL MCH 30.7 (25-34) pg MCHC 32.1 (32-36) g/dL RDW Std Deviation 48.6 H (36.4-46.3) fL RDW Coeff of Uriah 13.9 (11.5-14.5) % Plt Count 544 H (130-400) K/uL MPV 9.1 (7.4-10.4) fL Immature Gran % (Auto) 0.5 % Neut % (Auto) 37.4 % Lymph % (Auto) 48.2 % Roosevelt % (Auto) 10.6 % Eos % (Auto) 2.7 % Baso % (Auto) 0.6 % Immature Gran # (Auto) 0.04 H (0.00-0.02) K/uL Neut # (Auto) 3.04 (1.4-6.5) K/uL Lymph # (Auto) 3.91 H (1.2-3.4) K/uL Roosevelt # (Auto) 0.86 H (0.11-0.59) K/uL Eos # (Auto) 0.22 (0-0.5) K/uL Baso # (Auto) 0.05 (0-0.2) K/uL Sodium 141 (136-145) mmol/L Potassium 5.1 (3.5-5.1) mmol/L Chloride 106 (98-107) mmol/L Carbon Dioxide 33 H (21-32) mmol/L Anion Gap 2.0 L (3-11) BUN 13 (7-18) mg/dl Creatinine 0.85 (0.6-1.2) mg/dl Est Cr Clr Drug Dosing 72.4 ml/min Est GFR ( Amer) 86.9 Est GFR (Non-Af Amer) 75.0 BUN/Creatinine Ratio 15.2 (10-20) Glucose 90 (70-99) mg/dl Calcium 8.7 (8.5-10.1) mg/dl Total Bilirubin 0.3 (0.2-1) mg/dl Direct Bilirubin < 0.1 (0-0.2) mg/dl AST 15 (15-37) U/L ALT 16 (12-78) U/L Alkaline Phosphatase 63 (45-117) U/L Total Protein 6.3 L (6.4-8.2) gm/dl Albumin 2.8 L (3.4-5.0) gm/dl Stool Occult Bld Scrn Negative (Negative) Stool H. pylori Ag 10/25/18 Range/Units 21:15 WBC (4.8-10.8) K/uL RBC (4.2-5.4) M/uL Hgb (12.0-16.0) g/dL Hct (37-47) % MCV (80-100) fL MCH (25-34) pg MCHC (32-36) g/dL RDW Std Deviation (36.4-46.3) fL RDW Coeff of Uriah (11.5-14.5) % Plt Count (130-400) K/uL MPV (7.4-10.4) fL Immature Gran % (Auto) % Neut % (Auto) % Lymph % (Auto) % Roosevelt % (Auto) % Eos % (Auto) % Baso % (Auto) % Immature Gran # (Auto) (0.00-0.02) K/uL Neut # (Auto) (1.4-6.5) K/uL Lymph # (Auto) (1.2-3.4) K/uL Roosevelt # (Auto) (0.11-0.59) K/uL Eos # (Auto) (0-0.5) K/uL Baso # (Auto) (0-0.2) K/uL Sodium (136-145) mmol/L Potassium (3.5-5.1) mmol/L Chloride (98-107) mmol/L Carbon Dioxide (21-32) mmol/L Anion Gap (3-11) BUN (7-18) mg/dl Creatinine (0.6-1.2) mg/dl Est Cr Clr Drug Dosing ml/min Est GFR ( Amer) Est GFR (Non-Af Amer) BUN/Creatinine Ratio (10-20) Glucose (70-99) mg/dl Calcium (8.5-10.1) mg/dl Total Bilirubin (0.2-1) mg/dl Direct Bilirubin (0-0.2) mg/dl AST (15-37) U/L ALT (12-78) U/L Alkaline Phosphatase (45-117) U/L Total Protein (6.4-8.2) gm/dl Albumin (3.4-5.0) gm/dl Stool Occult Bld Scrn (Negative) Stool H. pylori Ag Pending PG Care Time/CCT Total # of Minutes Spent Total Time Spent with Patient: Total time spent is greater than 50% in coordination of care (as documented) at patient's floor/unit and/or counseling patient: (1) Pneumonia Laterality: left Lung location: lower lobe of lung Pneumonia type: due to unspecified organism Qualified Code(s): J18.1 - Lobar pneumonia, unspecified organism (2) Hypotension Hypotension type: unspecified hypotension type Qualified Code(s): I95.9 - Hypotension, unspecified (3) Leukocytosis Leukocytosis type: unspecified Qualified Code(s): D72.829 - Elevated white blood cell count, unspecified
--- NOTE | 2018-10-26 20:41 | Ultrasound Report ---
PELVIC ULTRASOUND, TRANSABDOMINAL AND TRANSVAGINAL HISTORY: left lower pelvic pain COMPARISON: Abdomen and pelvis CT 10/22/2018. FINDINGS: Uterus: 5.6 x 3.5 x 2.0 cm. No uterine masses. Endometrial stripe: 2 mm in thickness. Right ovary: Obscured by overlying bowel gas. Left ovary: Normal in size and demonstrates normal color flow. Miscellaneous:No pelvic free fluid. IMPRESSION: 1. Normal uterus and left ovary. 2. The right ovary was obscured by overlying bowel gas. Electronically signed by: Alli Loomis M.D. 10/26/2018 8:40 PM
[2018-10-26] MEDS: TRAZODONE HCL 100 MG TAB PO SCH (21:32)
[2018-10-27] MEDS: OXYCODONE/ACETAMINOPHEN 5mg/325mg TAB PO PRN ×5 (01:41→21:29)
[2018-10-27] MEDS: metroNIDAZOLE 500 MG/100 ML BAG IV SCH ×3 (04:52→19:33)
[2018-10-27 06:38] LABS: Hematocrit (blood only) 34.2 % (37-47); Hemoglobin 10.8 g/dL (12.0-16.0); Mean Corpuscular Hgb Conc 31.6 g/dL (32-36); Mean Corpuscular Volume 94.5 fL (80-100); Mean Platelet Volume 9.1 fL (7.4-10.4); Platelet Count 526 K/uL (130-400); RDW Coefficient of Variation 13.9 % (11.5-14.5); Red Blood Count 3.62 M/uL (4.2-5.4); White Blood Count 6.54 K/uL (4.8-10.8)
[2018-10-27] MEDS: SUCRALFATE 1 GM/10 ML UDC PO SCH ×4 (06:53→21:24)
[2018-10-27] MEDS: ALBUT/IPRATROP 3MG/0.5MG NEB 3 ML VIAL NEB SCH (06:59)
[2018-10-27 07:16] LABS: Alanine Aminotransferase 17 U/L (12-78); Albumin Level 2.7 gm/dl (3.4-5.0); Aspartate Aminotransferase 15 U/L (15-37); BUN Creatinine Ratio 5.3 (10-20); Bilirubin Direct < 0.1 mg/dl (0-0.2); Blood Urea Nitrogen 4 mg/dl (7-18); Calcium 8.5 mg/dl (8.5-10.1); Carbon Dioxide 27 mmol/L (21-32); Chloride 111 mmol/L (98-107); Est GFR (African American) 101.1; Est GFR (Non-African American) 87.2; Glucose 86 mg/dl (70-99); Potassium 3.9 mmol/L (3.5-5.1); Sodium 144 mmol/L (136-145)
[2018-10-27 07:18] LABS: Alkaline Phosphatase 59 U/L (45-117); Bilirubin,Total 0.4 mg/dl (0.2-1); Total Protein 6.3 gm/dl (6.4-8.2)
[2018-10-27] MEDS: CIPROFLOXACIN 400 MG/200 ML BAG IV SCH ×2 (08:11→19:33)
[2018-10-27] MEDS: THIAMINE HCL 100 MG TAB PO SCH (08:12)
[2018-10-27] MEDS: FOLIC ACID 1 MG TAB PO SCH (08:12)
[2018-10-27] MEDS: CYCLOBENZAPRINE HCL 10 MG TAB PO SCH (08:13)
[2018-10-27] MEDS: CHOLECALCIFEROL 1,000 UNITS TAB PO SCH ×2 (08:13→21:28)
[2018-10-27] MEDS: CITALOPRAM 40 MG TAB PO SCH (08:14)
[2018-10-27] MEDS: NICOTINE 14 MG/24 HR PATCH TD SCH (08:14)
[2018-10-27] MEDS: ATORVASTATIN 40 MG TAB PO SCH (08:14)
[2018-10-27] MEDS: DOCUSATE SODIUM/SENNA 50/8.6MG TAB PO SCH ×2 (08:16→21:27)
[2018-10-27] MEDS: DOXYCYCLINE HYCLATE 100 MG CAP PO SCH ×2 (08:16→21:28)
[2018-10-27] MEDS: PANTOprazole 40 MG TAB PO SCH ×2 (08:16→21:28)
[2018-10-27] MEDS: ACETAMINOPHEN 325 MG TAB PO PRN (09:50)
--- NOTE | 2018-10-27 11:38 | Hospitalist Progress Note ---
Date of Service October 27, 2018 Assessment & Plan (1) Abdominal pain: This patient is a 57-year-old female with a history of smoking, benzodiazepine dependence, GERD, who presented with 2 days of worsening left lower quadrant pain as well as nausea and vomiting after being treated recently for an acute sinusitis with Levaquin. She also had been having a cough and some wheezing reportedly which had improved prior to admission. She was found to have a leukocytosis with a white blood cell count of 23 K, thrombocytosis in the 800s, acute kidney injury with creatinine of 1.6, and a patchy groundglass consolidation in the left lower lobe on CT scan consistent with possible pneumonia. She was afebrile and lactate at the time of admission was 2.0. She was admitted and placed on IV Solu-Medrol, cefepime and vancomycin to treat for healthcare associated pneumonia. Leukocytosis initially significantly improved the day after admission down to 11 Her left lower quadrant pain got significantly worse on 10/22 and lactate became more elevated at 2.8. LFTs and BMP continue to be within normal limits. WBC count was back up to 14 but she also had received Solu-Medrol. A repeat CT scan of the abdomen/pelvis with IV contrast was performed on the evening of 10/22 which was reviewed with the reading radiologist on the phone-her celiac axis and SMA and YUN are clearly patent and there is no evidence of any ischemic bowel or abnormalities in the area of her pain. Her intrahepatic ducts were mildly dilated compared to previous, however she has normal LFTs and no right upper quadrant pain. She continued to have distal thoracic aorta intraluminal thrombus. I discussed the case with vascular surgeon on-call who recommended against anticoagulation at this time. Procalcitonin was negative Does have thickened bladder wall on CT-however, urinalysis is normal and not consistent with urinary tract infection. Uterus and adnexa appeared normal. Her antibiotics were switched to Cipro and Flagyl to cover for GI source of infection including colitis. Perhaps she had a mild ischemic colitis due to the previous hypotension upon admission which caused her lactate to become elevated, but not significant enough to cause changes on CT scan. Currently, her left lower quadrant pain is slightly improved but persists. She had a small amount of bright red blood per rectum on the second day of admission. She was initially not agreeable to a colonoscopy. Lactate has now returned to normal, LFTs and chemistry panel are normal, and her leukocytosis is now completely resolved. She remains afebrile. Was treated with a bowel prep to see if relieving her constipation would relieve her left lower quadrant pain-this did not relieve her pain -Plan for colonoscopy 10/27 -Continue antibiotics with IV Cipro and Flagyl to cover for GI source of infection-Day #6 -Continue to follow CBC, CMP -Continue Percocet as needed for pain control-caution with pain meds given history of substance abuse and recent rehab. (2) Pneumonia: Left lower lobe patchy groundglass infiltrate and atelectasis seen on both CT scans of the abdomen/pelvis. Chest x-ray within normal limits. She is no longer really having any signs or symptoms of pneumonia at this time. She had been treated with a course of Levaquin just prior to admission and perhaps this is residual infiltrate radiographically. -Nonetheless, will continue doxycycline to cover for pneumonia/Bronchitis-today is day #6 -DC'd cefepime and vancomycin after day 1 as above, MRSA swab negative -Follow radiographically until resolution on imaging as she is a smoker and is at risk for lung cancer- this was discussed with the patient by Dr. Del Cid (3) COPD exacerbation: Apparently had shortness of breath and wheezing on admission which is now resolved -Discontinued the IV steroids Which were ordered on admission -Continue nebulizer treatments -encouraged smoking cessation (4) Acute kidney injury: Creatinine 1.6 upon admission likely secondary to prerenal state and dehydration from nausea and vomiting Creatinine now improved after receiving IV fluids (5) Hypotension: Was significantly hypotensive upon arrival in the ER with systolic blood pressure in the 60s which improved with IV fluid resuscitation Hypotension likely due to acute illness but was also taking both prazosin and clonidine as prescribed to her from her detox/rehab Perhaps this did lead to a mild ischemic colitis As above -Have since discontinued the IV fluids -Continue treatment with antibiotics as above Blood pressures are now within normal limits -Attempts at restarting clonidine led to recurrent lightheadedness and soft blood pressures -will permanently discontinue clonidine due to side effects -We will continue to hold prazosin and consider restarting in the future as this helped her with her nightmares from PTSD -Follow blood pressures (6) Admitted to substance misuse detoxification center: Recent detoxification from Xanax and a 30-day stay at a drug rehab center -Would not give any benzodiazepines here -Clonidine causes lightheadedness and low blood pressures-will not give this any further as above -Continue to hold home prazosin and consider restarting the future as above (7) Drug dependence: Benzodiazepine dependence as above, recently completed rehab (8) Bone lesion: A 3 mm sclerotic bone lesion visualized in the right ilium on CT of the abdomen/pelvis-to be considered metastatic lesion until proven otherwise -Radiology recommends mammogram and possibly nuclear bone scan-these can be done as an outpatient She did have a colonoscopy 2 years ago that was reportedly normal-now repeat colonoscopy She does have a left lower lobe groundglass opacity as above-could consider pulmonary malignancy-need to follow pulmonary imaging to resolution as above -Also has distal circumferential esophageal thickening noted on CT scan-does have a long history of GERD and smoking-she had an EGD here which only showed duodenal ulcers but no cancer -Appreciate GI consultation -Follow-up on this as an outpatient (9) Thrombocytosis: Platelets in the 800s on admission indicative of an acute phase reactant Continues to improve and is down to 500s - inflammatory state going on despite treatment with IV antibiotics? -Follow CBC -Colonoscopy 10/27 (10) Leukocytosis: As above, WBC count significantly elevated at 23K on admission and has now normalized -Secondary to infection -Continue to follow CBC -Follow blood cultures-No growth to date (11) Aortic mural thrombus: Distal descending thoracic aortic intraluminal thrombus seen. 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 and seen on the right renal artery on imaging Renal function is normal at this time Appreciate vascular surgery consultation-recommend nothing urgent at this time- recommend six-month follow-up ultrasound of the renal artery (13) Nausea & vomiting: Presented with nausea and vomiting Unclear etiology but perhaps due to abdominal pain, peptic ulcer disease -Now resolved (14) Anemia: Hemoglobin had decreased to 9, but is now back up to 10.8-was likely somewhat hemo-dilutional, But is also iron deficient on labs Is normocytic, no gross bleeding from anywhere on history or on examination or on imaging Hemoccult stool negative -Ferritin is low normal at 39, transferrin saturation is low at 13%, B12 and folate are normal - EGD showed 2 duodenal ulcers that are not actively bleeding, however they may have had some microscopic bleeding -Will follow CBC -Check H. pylori stool antigen-pending (15) Esophageal thickening: Noted distal circumferential esophageal thickening on CT scan -EGD without tumor in the esophagus (16) Peptic ulcer of duodenum: 2 ulcers seen in the duodenum on EGD here -Started Protonix 40 mg p.o. twice daily x2 months -Started Carafate 1 g p.o. before meals at bedtime -Checking H. pylori stool antigen-pending (17) Hypokalemia: Replaced with oral potassium and then was elevated, now improved to 5.1 -Follow BMP in the morning (18) DVT prophylaxis: Lovenox subcu-we will hold for colonoscopy tomorrow Dispo: residential house on Saturday as per case management. Supervising Physician Co-Signing Physician Notes I supervised Ruby Lopez NP on this patient's care. I discussed the plan of care with her with the plan being as written in her note except for any following changes/exceptions: None. Subjective Ms. Santacruz continues to have abdominal pain, tender to palpation in left quadrants. She tolerated her bowel prep for colonoscopy today. She complains of a headache due to having an IV pump accidentally dropped on her head while trying to secure it to her wheelchair last night. No visual changes or other deficits Review of Systems Review of Systems: All systems reviewed & are unremarkable except as noted in HPI & below Physical Exam Physical Exam: General: no distress Eyes: normal inspection, PERLL Respiratory: chest non tender, clear to auscultation, normal breath sounds, no respiratory distress, no accessory muscle use Cardiac: regular rate and rhythm, no rub or gallop, no murmur, no edema, no jvd GI/: active bowel sounds, abdominal tenderness left lower/upper quadrants, soft, non distended Extremities: normal range of motion, normal strength, non tender Neuro/Psych: alert and oriented x 3, normal mood and affect, CN II - XII intact Skin: normal color, dry, Results & Data Vital Signs (Past 12 Hours) Vital Signs Temp Pulse Resp BP Pulse Ox 10/27/18 07:32 36.9 C 77 16 117/68 94 10/27/18 07:01 54 L 18 94 10/26/18 23:35 36.4 C L 94 H 20 147/79 H 95 PG Care Time/CCT Total # of Minutes Spent Total Time Spent with Patient: Total time spent is greater than 50% in coordination of care (as documented) at patient's floor/unit and/or counseling patient: (1) Leukocytosis Leukocytosis type: unspecified Qualified Code(s): D72.829 - Elevated white blood cell count, unspecified (2) Hypotension Hypotension type: unspecified hypotension type Qualified Code(s): I95.9 - Hypotension, unspecified (3) Pneumonia Laterality: left Lung location: lower lobe of lung Pneumonia type: due to unspecified organism Qualified Code(s): J18.1 - Lobar pneumonia, unspecified organism
[2018-10-27] MEDS ORDERED: ALBUT/IPRATROP 3MG/0.5MG NEB 3 ML VIAL NEB PRN (12:00)
--- NOTE | 2018-10-27 14:06 | Anesthesiology Consultation ---
Date of Service October 27, 2018 Assessment & Plan (1) Encounter for pre-operative examination: (2) Encounter for pre-operative examination: History Surgery Operation Date: 10/24/18 09:30 Proposed Procedures p Esophagogastroduodenoscopy Dr Abdoul Schreiber Operation Date: 10/27/18 09:00 Proposed Procedures p Colonoscopy Dr Abdoul Schreiber Height/Weight Height: 5 ft 5 in Weight: 75.3 kg Allergies Allergy/AdvReac Type Severity Reaction Status Date / Time Penicillins Allergy Hives Unverified 10/21/18 10:36 Medications Home Medications Medication Instructions Recorded Confirmed Last Taken albuterol sulfate [Ventolin HFA] 1 puff INHALATION Q6H PRN 10/21/18 10/21/18 Unknown cholecalciferol (vitamin D3) 2,000 unit PO BID 10/21/18 10/21/18 Unknown citalopram [Celexa] 40 mg PO QAM 10/21/18 10/21/18 Unknown clonidine HCl 0.1 mg PO HS 10/21/18 10/21/18 Unknown cyclobenzaprine 10 mg PO DAILY 10/21/18 10/21/18 Unknown folic acid 1 mg PO DAILY 10/21/18 10/21/18 Unknown ipratropium-albuterol 3 ml INHALATION DAILY PRN 10/21/18 10/21/18 Unknown levofloxacin 500 mg PO DAILY PRN 10/21/18 10/21/18 Unknown menthol [Bengay Cold Therapy] 1 % TOPICAL DIRECTED PRN 10/21/18 10/21/18 Unknown prazosin 2 mg PO QAM 10/21/18 10/21/18 Unknown prednisone 50 mg PO DAILY 10/21/18 10/21/18 Unknown thiamine HCl (vitamin B1) 100 mg PO DAILY 10/21/18 10/21/18 Unknown trazodone 100 mg PO HS 10/21/18 10/21/18 Unknown Active Medications Generic Name Dose Route Start Last Admin Trade Name Freq PRN Reason Stop Dose Admin Acetaminophen 650 mg 10/21/18 16:36 10/27/18 09:50 Tylenol PO 11/20/18 16:35 650 mg Q4H PRN Administration Pain or Fever Atorvastatin Calcium 40 mg 10/25/18 09:00 10/27/18 08:14 Lipitor PO 11/24/18 08:59 40 mg QAM ROSLYN Administration Citalopram Hydrobromide 40 mg 10/22/18 09:00 10/27/18 08:14 Celexa PO 11/21/18 08:59 40 mg QAM ROSLYN Administration Clopidogrel Bisulfate 75 mg 10/25/18 09:00 10/26/18 07:51 Plavix PO 11/24/18 08:59 75 mg QAM ROSLYN Administration Cyclobenzaprine HCl 10 mg 10/22/18 09:00 10/27/18 08:13 Flexeril PO 11/21/18 08:59 10 mg DAILY ROSLYN Administration Doxycycline Hyclate 100 mg 10/22/18 15:30 10/27/18 08:16 Vibramycin PO 10/29/18 15:29 100 mg BID ROSLYN Administration Folic Acid 1 mg 10/22/18 09:00 10/27/18 08:12 Folvite PO 11/21/18 08:59 1 mg DAILY ROSLYN Administration Metronidazole 500 mg in 100 mls @ 100 mls/hr 10/22/18 20:00 10/27/18 13:53 Flagyl IV 11/01/18 19:59 Infused Q8H ROSLYN Infusion Ciprofloxacin 400 mg in 200 mls @ 100 mls/hr 10/22/18 20:00 10/27/18 11:12 Cipro IV 11/01/18 19:59 Infused Q12H ROSLYN Infusion Protocol Miscellaneous 1 ea 10/23/18 21:00 10/26/18 21:33 Remove Nicoderm Patch N/A 11/22/18 20:59 1 ea HS ROSLYN Administration Nicotine 14 mg 10/24/18 09:00 10/27/18 08:14 Nicoderm Cq TD 11/23/18 08:59 14 mg QAM ROSLYN Administration Oxycodone/Acetaminophen 1 tab 10/25/18 08:01 10/27/18 12:32 Percocet 5mg/325mg PO 11/08/18 08:00 1 tab Q4H PRN Administration Pain Pantoprazole Sodium 40 mg 10/24/18 21:00 10/27/18 08:16 Protonix PO 11/23/18 20:59 40 mg BID ROSLYN Administration Senna/Docusate Sodium 1 tab 10/25/18 14:10 10/27/18 08:16 Senokot S PO 11/24/18 14:09 1 tab BID ROSLYN Administration Sucralfate 1 gm 10/21/18 17:00 10/27/18 11:57 Carafate PO 11/20/18 16:59 1 gm ACHS ROSLYN Administration Thiamine HCl 100 mg 10/25/18 14:25 10/27/18 08:12 Vitamin B-1 PO 11/24/18 14:24 100 mg DAILY ROSLYN Administration Trazodone HCl 100 mg 10/25/18 21:00 10/26/18 21:32 Desyrel PO 11/24/18 20:59 100 mg HS ROSLYN Administration Vitamin D 2,000 units 10/21/18 21:00 10/27/18 08:13 Vitamin D3 PO 11/20/18 20:59 2,000 units BID ROSLYN Administration NPO Date Last Intake of Fluids: 10/24/18 Time Last Intake of Fluids: 10:30 Last Intake of Fluids Comment: Sip with meds Date Last Intake of Solids: 10/22/18 Time Last Intake of Solids: 19:00 Past Medical History Medical History Acute gastritis (Acute) Acute kidney injury (Acute) COPD exacerbation (Acute) Pneumonia (Acute) Admitted to substance misuse detoxification center Drug dependence (Chronic) Anemia CHF (congestive heart failure) CVA (cerebral vascular accident) 7 years ago, dysarthria Seizure last one 9 years ago. Past Family History Family History Other No significant family history Past Surgical History Surgical History History of esophagogastroduodenoscopy (EGD) History of 2 sections History of ankle surgery History of foot surgery Right and left History of tonsillectomy Social History Smoking Status: Current every day smoker tobacco type: cigarettes Smoking cigarettes per day: 20 Do You Dip or Chew Tobacco: No Hx Alcohol Use: No Alcohol Intake Frequency Comment: recent detox Hx Substance Use: No substance use type: does not use Substance Use Type Other:: benzodiasepine-Xanax Last Used Substance: Unknown Last Used Substance Other:: recent drug detox Physical Exam Vital Signs Last Vital Signs Temp 37.1 C 10/27/18 14:39 Pulse 78 10/27/18 14:39 Resp 18 10/27/18 14:39 BP 119/74 10/27/18 14:39 Pulse Ox 95 10/27/18 14:39 Testing Laboratory Results 10/27/18 06:25 10/27/18 06:25 PT 12.4 Seconds (9.0-12.0) H 10/21/18 09:50 INR 1.2 (0.9-1.1) H 10/21/18 09:50 Urine Color Yellow 10/21/18 15:20 Urine Appearance Clear (Clear) 10/21/18 15:20 Urine pH 6.0 (4.5-7.5) 10/21/18 15:20 Ur Specific [place] 1.043 (1.000-1.030) H 10/21/18 15:20 Urine Protein Negative (Negative) 10/21/18 15:20 Urine Glucose (UA) Negative (Negative) 10/21/18 15:20 Urine Ketones Trace (Negative) H 10/21/18 15:20 Urine Nitrite Negative (Negative) 10/21/18 15:20 Ur Leukocyte Esterase Negative (Negative) 10/21/18 15:20 10/21/18 10:41 Aerobic Blood Culture - Final Blood No growth in Aerobic bottle after 5 days. Anaerobic Blood Culture - Final No growth in Anaerobic bottle after 5 days. 10/21/18 10:30 Aerobic Blood Culture - Final Blood No growth in Aerobic bottle after 5 days. Anaerobic Blood Culture - Final No growth in Anaerobic bottle after 5 days. 10/24/18 15:25 Gram Stain - Final Sputum, Expectorated Sputum Culture - Final Moderate normal dejuan. Electrocardiogram Date: 10/21/18 Findings: + ST @ (104) Possible LAE Chest X-Ray Date: 10/21/18 Findings: + NAD
[2018-10-27] MEDS ORDERED: MIDAZOLAM HCL 1 MG/ML 2ML VIAL ONE (14:58)
[2018-10-27] MEDS ORDERED: LIDOCAINE HCL 2% 2 ML VIAL/AMP(20MG/ML) INFIL ONE (14:58)
[2018-10-27] MEDS ORDERED: PROPOFOL IV EMULSION 10 MG/ML 20 ML VIAL IV ONE (14:58)
--- NOTE | 2018-10-27 15:03 | History & Physical Report ---
Date of Service October 27, 2018 History of Present Illness Chief Complaint: LLQ pain, nausea Primary Care Provider: NO PCP For colonoscopy Allergies Allergy/AdvReac Type Severity Reaction Status Date / Time Penicillins Allergy Hives Unverified 10/21/18 10:36 Home Medications Home Medications Medication Instructions Recorded Confirmed Type albuterol sulfate [Ventolin HFA] 1 puff INHALATION Q6H PRN 10/21/18 10/21/18 History cholecalciferol (vitamin D3) 2,000 unit PO BID 10/21/18 10/21/18 History citalopram [Celexa] 40 mg PO QAM 10/21/18 10/21/18 History clonidine HCl 0.1 mg PO HS 10/21/18 10/21/18 History cyclobenzaprine 10 mg PO DAILY 10/21/18 10/21/18 History folic acid 1 mg PO DAILY 10/21/18 10/21/18 History ipratropium-albuterol 3 ml INHALATION DAILY PRN 10/21/18 10/21/18 History levofloxacin 500 mg PO DAILY PRN 10/21/18 10/21/18 History menthol [Bengay Cold Therapy] 1 % TOPICAL DIRECTED PRN 10/21/18 10/21/18 History prazosin 2 mg PO QAM 10/21/18 10/21/18 History prednisone 50 mg PO DAILY 10/21/18 10/21/18 History thiamine HCl (vitamin B1) 100 mg PO DAILY 10/21/18 10/21/18 History trazodone 100 mg PO HS 10/21/18 10/21/18 History Past Med/Surg History Medical History Acute gastritis (Acute) Acute kidney injury (Acute) COPD exacerbation (Acute) Pneumonia (Acute) Admitted to substance misuse detoxification center Drug dependence (Chronic) Anemia CHF (congestive heart failure) CVA (cerebral vascular accident) 7 years ago, dysarthria Seizure last one 9 years ago. Surgical History History of esophagogastroduodenoscopy (EGD) History of 2 sections History of ankle surgery History of foot surgery Right and left History of tonsillectomy Family History Other No significant family history Social History Preferred Language: Vietnamese Communication Ability: Effective Radioactive Waste Disposal Dispatcher Required: No Beliefs That Will Affect Care: None marital status: Current Living Situation: Homeless Current Living Situation Comment: In transit to skilled nursing house in [place] (10/21/18) current occupational status: unemployed Other Information That Helps Us Care for You: No Feels Safe at Home: Yes Safety Concerns: Feels Safe At This Time Smoking Status: Current every day smoker Tobacco Type: cigarettes ; Cigarettes Per Day: 20 ; Do You Dip or Chew Tobacco: No ; Second Hand Exposure: No ; Tobacco Cessation Education Requested by Patient: No Hx Alcohol Use: No Hx Substance Use: No Physical Exam Constitutional: + obese ENMT: Mouth: + edentulous Respiratory: normal respiratory effort Cardiovascular: Rate/Rhythm: regular rate and regular rhythm Gastrointestinal (Abdomen): Percussion/Palpation: abdomen soft Results & Data Vital Signs (Past 12 Hours) Vital Signs Temp Pulse Resp BP Pulse Ox 10/27/18 14:39 37.1 C 78 18 119/74 95 10/27/18 07:32 36.9 C 77 16 117/68 94 10/27/18 07:01 54 L 18 94
[2018-10-27] MEDS ORDERED: ALBUTEROL HFA INHALER 8.5 GM ONE (15:07)
[2018-10-27] MEDS ORDERED: SODIUM CHLORIDE 0.9% 1000ML 1,000 ML IV SCH ×2 (15:15→16:15)
--- NOTE | 2018-10-27 15:33 | GI REPORT ---
Patient Name: Drea Santacruz Procedure Date: 10/27/2018 2:46 PM Date of : 1960 Admit Type: Inpatient Age: 57 Gender: Female Attending MD: Ryan Schreiber MD Procedure: Colonoscopy Providers: Ryan Schreiber MD Referring MD: Marquise Ko Md Indications: Generalized abdominal pain, Iron deficiency anemia Medicines: Midazolam 2 mg IV, Propofol total dose 230 mg IV, Lidocaine 40 mg IV Complications: No immediate complications. Estimated Blood Loss: Estimated blood loss: none. Procedure: Pre-Anesthesia Assessment: - Prior to the procedure, a History and Physical was performed, and patient medications, allergies and sensitivities were reviewed. The patient's tolerance of previous anesthesia was reviewed. - The risks and benefits of the procedure and the sedation options and risks were discussed with the patient. All questions were answered and informed consent was obtained. After I obtained informed consent, the scope was passed under direct vision. Throughout the procedure, the patient's blood pressure, pulse, and oxygen saturations were monitored continuously. The Scope was introduced through the anus and advanced to the terminal ileum. The colonoscopy was performed without difficulty. The patient tolerated the procedure well. The quality of the bowel preparation was fair. Findings: The terminal ileum appeared normal. Non-bleeding internal hemorrhoids were found during endoscopy. The hemorrhoids were mild. Impression: - Preparation of the colon was fair. - The examined portion of the ileum was normal. - Non-bleeding internal hemorrhoids. - No specimens collected. Recommendation: - Return patient to hospital [facility] for ongoing care. Ryan Schreiber M.D. Ryan Schreiber MD 10/27/2018 3:33:18 PM This report has been signed electronically. Note Initiated On: 10/27/2018 2:46 PM Number of Addenda: 0 I attest to the content of the Intraoperative Record and orders documented therein, exceptions below {[id number]}
--- NOTE | 2018-10-27 15:55 | Anesthesiology Progress Note ---
Date of Service October 27, 2018 Anesthesia Post Procedure Vital Signs Vital Signs: Temp Pulse Pulse Resp BP BP Pulse Ox 10/27/18 15:46 80 16 114/71 94 10/27/18 15:31 85 14 111/69 96 10/27/18 14:39 37.1 C 78 18 119/74 95 10/27/18 07:32 36.9 C 77 16 117/68 94 10/27/18 07:01 54 L 18 94 10/26/18 23:35 36.4 C L 94 H 20 147/79 H 95 10/26/18 19:16 74 16 93 Pain Intensity Abdomen: Pain Intensity: 4 Transfer of Care Handoff Completed per policy Notes Mental Status: alert / awake / arousable and participated in evaluation Patient Amnestic to Procedure: Yes Nausea / Vomiting: adequately controlled Pain: adequately controlled Airway Patency, RR, SpO2: stable & adequate BP & HR: stable & adequate Hydration State: stable & adequate Anesthetic Complications: no major complications apparent and Pt Satisfied with anesthetic care
--- NOTE | 2018-10-27 15:58 | GI REPORT ---
Patient Name: Drea Santacruz Procedure Date: 10/24/2018 12:32 PM Date of : 1960 Admit Type: Inpatient Age: 57 Gender: Female Attending MD: Ryan Schreiber MD Procedure: Upper GI endoscopy Providers: Ryan Schreiber MD Referring MD: Referred Self Indications: Epigastric abdominal pain, Iron deficiency anemia secondary to chronic blood loss, Nausea with vomiting Medicines: Propofol total dose 150 mg IV, Lidocaine 60 mg IV, Cetacaine spray Complications: No immediate complications. Estimated Blood Loss: Estimated blood loss: none. Procedure: Pre-Anesthesia Assessment: - Prior to the procedure, a History and Physical was performed, and patient medications, allergies and sensitivities were reviewed. The patient's tolerance of previous anesthesia was reviewed. - The risks and benefits of the procedure and the sedation options and risks were discussed with the patient. All questions were answered and informed consent was obtained. After obtaining informed consent, the endoscope was passed under direct vision. Throughout the procedure, the patient's blood pressure, pulse, and oxygen saturations were monitored continuously. The scope was introduced through the mouth, and advanced to the second part of duodenum. The upper GI endoscopy was accomplished without difficulty. The patient tolerated the procedure well. Findings: The Z-line was regular and was found 38 cm from the incisors. The examined esophagus was normal. The entire examined stomach was normal. Two non-bleeding cratered duodenal ulcers with no stigmata of bleeding were found in the duodenal bulb. The largest lesion was 7 mm in largest dimension. Impression: - Z-line regular, 38 cm from the incisors. - Normal esophagus. - Normal stomach. - Multiple non-bleeding duodenal ulcers with no stigmata of bleeding. - No specimens collected. Recommendation: - Return patient to hospital [facility] for ongoing care. - Perform an H. pylori stool antigen (HpSA) test at the next available appointment. - Full liquid diet today. Ryan Schreiber M.D. Ryan Schreiber MD 10/24/2018 12:50:03 PM Note Initiated On: 10/24/2018 12:32 PM Number of Addenda: 0 I attest to the content of the Intraoperative Record and orders documented therein, exceptions below {[id number]}
--- NOTE | 2018-10-27 16:15 | History & Physical Report ---
Date of Service October 27, 2018 History of Present Illness Chief Complaint: Jaundice, abnl CT Primary Care Provider: NO PCP For ERCP Allergies Allergy/AdvReac Type Severity Reaction Status Date / Time Penicillins Allergy Hives Unverified 10/21/18 10:36 Home Medications Home Medications Medication Instructions Recorded Confirmed Type albuterol sulfate [Ventolin HFA] 1 puff INHALATION Q6H PRN 10/21/18 10/21/18 History cholecalciferol (vitamin D3) 2,000 unit PO BID 10/21/18 10/21/18 History citalopram [Celexa] 40 mg PO QAM 10/21/18 10/21/18 History clonidine HCl 0.1 mg PO HS 10/21/18 10/21/18 History cyclobenzaprine 10 mg PO DAILY 10/21/18 10/21/18 History folic acid 1 mg PO DAILY 10/21/18 10/21/18 History ipratropium-albuterol 3 ml INHALATION DAILY PRN 10/21/18 10/21/18 History levofloxacin 500 mg PO DAILY PRN 10/21/18 10/21/18 History menthol [Bengay Cold Therapy] 1 % TOPICAL DIRECTED PRN 10/21/18 10/21/18 History prazosin 2 mg PO QAM 10/21/18 10/21/18 History prednisone 50 mg PO DAILY 10/21/18 10/21/18 History thiamine HCl (vitamin B1) 100 mg PO DAILY 10/21/18 10/21/18 History trazodone 100 mg PO HS 10/21/18 10/21/18 History Past Med/Surg History Medical History Acute gastritis (Acute) Acute kidney injury (Acute) COPD exacerbation (Acute) Pneumonia (Acute) Admitted to substance misuse detoxification center Drug dependence (Chronic) Anemia CHF (congestive heart failure) CVA (cerebral vascular accident) 7 years ago, dysarthria Seizure last one 9 years ago. Surgical History History of esophagogastroduodenoscopy (EGD) History of 2 sections History of ankle surgery History of foot surgery Right and left History of tonsillectomy Family History Other No significant family history Social History Preferred Language: Sinhala Communication Ability: Effective Geography Department Chair Required: No Beliefs That Will Affect Care: None marital status: Current Living Situation: Homeless Current Living Situation Comment: [facility] in [place] (10/21/18) current occupational status: unemployed Other Information That Helps Us Care for You: No Feels Safe at Home: Yes Safety Concerns: Feels Safe At This Time Smoking Status: Current every day smoker Tobacco Type: cigarettes ; Cigarettes Per Day: 20 ; Do You Dip or Chew Tobacco: No ; Second Hand Exposure: No ; Tobacco Cessation Education Requested by Patient: No Hx Alcohol Use: No Hx Substance Use: No Physical Exam Constitutional: Jaundiced Eyes: icteric Respiratory: normal respiratory effort Cardiovascular: Rate/Rhythm: regular rate and regular rhythm Gastrointestinal (Abdomen): Inspection/Auscultation: + abdomen distended RLQ urostomy Results & Data Vital Signs (Past 12 Hours) Vital Signs Temp Pulse Pulse Resp BP BP Pulse Ox 10/27/18 16:01 75 18 118/80 95 10/27/18 15:46 80 16 114/71 94 10/27/18 15:31 85 14 111/69 96 10/27/18 14:39 37.1 C 78 18 119/74 95 10/27/18 07:32 36.9 C 77 16 117/68 94 10/27/18 07:01 54 L 18 94
--- NOTE | 2018-10-27 17:54 | Progress Note ---
DATE: 10/27/2018 The patient underwent a colonoscopy today. The exam was carried into the terminal ileum. Other than some mild internal hemorrhoids, no lesions were seen. IMPRESSION: The patient's colonoscopy was uneventful. There were no signs of polyps, cancers or inflammatory bowel disease. She was found to have duodenal ulcers on her upper endoscopy and I think this would account for her symptoms. At this point, I would continue her on acid suppression, bland diet and check stool for H. pylori.
[2018-10-27] MEDS: TRAZODONE HCL 100 MG TAB PO SCH (21:28)
[2018-10-28] MEDS: OXYCODONE/ACETAMINOPHEN 5mg/325mg TAB PO PRN ×3 (03:52→23:29)
[2018-10-28] MEDS: metroNIDAZOLE 500 MG/100 ML BAG IV SCH ×3 (04:31→19:47)
[2018-10-28] MEDS: SUCRALFATE 1 GM/10 ML UDC PO SCH ×4 (06:47→19:49)
[2018-10-28] MEDS: CIPROFLOXACIN 400 MG/200 ML BAG IV SCH ×2 (08:03→19:47)
[2018-10-28] MEDS: DOCUSATE SODIUM/SENNA 50/8.6MG TAB PO SCH ×2 (08:04→19:46)
[2018-10-28] MEDS: FOLIC ACID 1 MG TAB PO SCH (08:04)
[2018-10-28] MEDS: CYCLOBENZAPRINE HCL 10 MG TAB PO SCH (08:04)
[2018-10-28] MEDS: NICOTINE 14 MG/24 HR PATCH TD SCH (08:04)
[2018-10-28] MEDS: ATORVASTATIN 40 MG TAB PO SCH (08:04)
[2018-10-28] MEDS: CITALOPRAM 40 MG TAB PO SCH (08:04)
[2018-10-28] MEDS: CHOLECALCIFEROL 1,000 UNITS TAB PO SCH ×2 (08:04→19:49)
[2018-10-28] MEDS: THIAMINE HCL 100 MG TAB PO SCH (08:04)
[2018-10-28] MEDS: PANTOprazole 40 MG TAB PO SCH ×2 (08:04→19:47)
[2018-10-28] MEDS: DOXYCYCLINE HYCLATE 100 MG CAP PO SCH ×2 (08:05→19:47)
[2018-10-28 08:38] LABS: Hematocrit (blood only) 37.2 % (37-47); Hemoglobin 12.1 g/dL (12.0-16.0); Mean Corpuscular Hgb Conc 32.5 g/dL (32-36); Mean Corpuscular Volume 93.2 fL (80-100); Mean Platelet Volume 9.4 fL (7.4-10.4); Platelet Count 567 K/uL (130-400); RDW Coefficient of Variation 13.8 % (11.5-14.5); RDW Standard Deviation 47.5 fL (36.4-46.3); Red Blood Count 3.99 M/uL (4.2-5.4); White Blood Count 7.74 K/uL (4.8-10.8)
[2018-10-28 09:11] LABS: BUN Creatinine Ratio 17.1 (10-20); Calcium 8.9 mg/dl (8.5-10.1); Creatinine Clr Calc Pharmacy 70.6 ml/min; Est GFR (African American) 84.5; Est GFR (Non-African American) 72.9; Potassium 3.9 mmol/L (3.5-5.1)
[2018-10-28] MEDS ORDERED: SODIUM CHLORIDE 0.9% 1000ML 1,000 ML IV ONE (14:24)
--- NOTE | 2018-10-28 14:59 | Hospitalist Progress Note ---
Date of Service October 28, 2018 Assessment & Plan (1) Abdominal pain: This patient is a 57-year-old female with a history of smoking, benzodiazepine dependence, GERD, who presented with 2 days of worsening left lower quadrant pain as well as nausea and vomiting after being treated recently for an acute sinusitis with Levaquin. She also had been having a cough and some wheezing reportedly which had improved prior to admission. She was found to have a leukocytosis with a white blood cell count of 23 K, thrombocytosis in the 800s, acute kidney injury with creatinine of 1.6, and a patchy groundglass consolidation in the left lower lobe on CT scan consistent with possible pneumonia. She was afebrile and lactate at the time of admission was 2.0. She was admitted and placed on IV Solu-Medrol, cefepime and vancomycin to treat for healthcare associated pneumonia. Leukocytosis initially significantly improved the day after admission down to 11 Her left lower quadrant pain got significantly worse on 10/22 and lactate became more elevated at 2.8. LFTs and BMP continue to be within normal limits. WBC count was back up to 14 but she also had received Solu-Medrol. A repeat CT scan of the abdomen/pelvis with IV contrast was performed on the evening of 10/22 which was reviewed with the reading radiologist on the phone-her celiac axis and SMA and YUN are clearly patent and there is no evidence of any ischemic bowel or abnormalities in the area of her pain. Her intrahepatic ducts were mildly dilated compared to previous, however she has normal LFTs and no right upper quadrant pain. She continued to have distal thoracic aorta intraluminal thrombus. Discussed the case with vascular surgeon on-call who recommended against anticoagulation at this time. Procalcitonin was negative Does have thickened bladder wall on CT-however, urinalysis is normal and not consistent with urinary tract infection. Uterus and adnexa appeared normal. Her antibiotics were switched to Cipro and Flagyl to cover for GI source of infection including colitis. Perhaps she had a mild ischemic colitis due to the previous hypotension upon admission which caused her lactate to become elevated, but not significant enough to cause changes on CT scan. Currently, her left lower quadrant pain is slightly improved but persists. She had a small amount of bright red blood per rectum on the second day of admission. She was initially not agreeable to a colonoscopy. Lactate has now returned to normal, LFTs and chemistry panel are normal, and her leukocytosis is now completely resolved. She remains afebrile. Was treated with a bowel prep to see if relieving her constipation would relieve her left lower quadrant pain-this did not relieve her pain - colonoscopy 10/27 - no acute process -Continue antibiotics with IV Cipro and Flagyl to cover for GI source of infection-Day #7 -Continue to follow CBC, CMP -Continue Percocet as needed for pain control-caution with pain meds given history of substance abuse and recent rehab. (2) Pneumonia: Left lower lobe patchy ground glass infiltrate and atelectasis seen on both CT scans of the abdomen/pelvis. Chest x-ray within normal limits. She is no longer really having any signs or symptoms of pneumonia at this time. She had been treated with a course of Levaquin just prior to admission and perhaps this is residual infiltrate radiographically. -Nonetheless, doxycycline to cover for pneumonia/Bronchitis-today is day #7 - will dc -DC'd cefepime and vancomycin after day 1 as above, MRSA swab negative -Follow radiographically until resolution on imaging as she is a smoker and is at risk for lung cancer- this was discussed with the patient by Dr. Del Cid (3) COPD exacerbation: Apparently had shortness of breath and wheezing on admission which is now resolved -Discontinued the IV steroids Which were ordered on admission -Continue nebulizer treatments -encouraged smoking cessation (4) Acute kidney injury: Creatinine 1.6 upon admission likely secondary to prerenal state and dehydration from nausea and vomiting Creatinine now improved after receiving IV fluids (5) Hypotension: Was significantly hypotensive upon arrival in the ER with systolic blood pressure in the 60s which improved with IV fluid resuscitation Hypotension likely due to acute illness but was also taking both prazosin and clonidine as prescribed to her from her detox/rehab Perhaps this did lead to a mild ischemic colitis As above - will give 1L NSS bolus today for tachycardia with standing - patient's blood pressures not orthostatic but she did have a possible syncopal episode today -Continue treatment with antibiotics as above -Attempts at restarting clonidine led to recurrent lightheadedness and soft blood pressures -will permanently discontinue clonidine due to side effects -We will continue to hold prazosin and consider restarting in the future as this helped her with her nightmares from PTSD (6) Admitted to substance misuse detoxification center: Recent detoxification from Xanax and a 30-day stay at a drug rehab center -Would not give any benzodiazepines here -Clonidine causes lightheadedness and low blood pressures-will not give this any further as above -Continue to hold home prazosin and consider restarting the future as above (7) Drug dependence: Benzodiazepine dependence as above, recently completed rehab (8) Bone lesion: A 3 mm sclerotic bone lesion visualized in the right ilium on CT of the abdomen/pelvis-to be considered metastatic lesion until proven otherwise -Radiology recommends mammogram and possibly nuclear bone scan-these can be done as an outpatient She did have a colonoscopy 2 years ago that was reportedly normal-now repeat colonoscopy She does have a left lower lobe groundglass opacity as above-could consider pulmonary malignancy-need to follow pulmonary imaging to resolution as above -Also has distal circumferential esophageal thickening noted on CT scan-does have a long history of GERD and smoking-she had an EGD here which only showed duodenal ulcers but no cancer -Appreciate GI consultation -Follow-up on this as an outpatient (9) Thrombocytosis: Platelets in the 800s on admission indicative of an acute phase reactant Continues to improve and is down to 500s - inflammatory state going on despite treatment with IV antibiotics? -Follow CBC -Colonoscopy 10/27 as above (10) Leukocytosis: As above, WBC count significantly elevated at 23K on admission and has now normalized -Secondary to infection -Continue to follow CBC -blood cultures-No growth to date (11) Aortic mural thrombus: Distal descending thoracic aortic intraluminal thrombus seen. 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 and seen on the right renal artery on imaging Renal function is normal at this time Appreciate vascular surgery consultation-recommend nothing urgent at this time- recommend six-month follow-up ultrasound of the renal artery (13) Nausea & vomiting: Presented with nausea and vomiting Unclear etiology but perhaps due to abdominal pain, peptic ulcer disease -Now resolved (14) Anemia: Hemoglobin had decreased was likely somewhat hemo-dilutional, But is also iron deficient on labs Is normocytic, no gross bleeding from anywhere on history or on examination or on imaging Hemoccult stool negative -Ferritin is low normal at 39, transferrin saturation is low at 13%, B12 and folate are normal - EGD showed 2 duodenal ulcers that are not actively bleeding, however they may have had some microscopic bleeding -Will follow CBC -Check H. pylori stool antigen-pending (15) Esophageal thickening: Noted distal circumferential esophageal thickening on CT scan -EGD without tumor in the esophagus (16) Peptic ulcer of duodenum: 2 ulcers seen in the duodenum on EGD here -Started Protonix 40 mg p.o. twice daily x2 months -Started Carafate 1 g p.o. before meals at bedtime -H. pylori stool antigen negative (17) Hypokalemia: Replaced with oral potassium and then was elevated, now improved to normal -Follow BMP in the morning (18) DVT prophylaxis: heparin subq Dispo: [facility] house on Saturday as per case management. Subjective Ms. Santacruz was found sitting on the bathroom floor by nursing. She reports having gotten dizzy and then finding herself sitting on the floor. She does have some pain in her sacrum, does not think she hit her head. Review of Systems Review of Systems: All systems reviewed & are unremarkable except as noted in HPI & below Physical Exam Physical Exam: General: no distress Eyes: normal inspection, PERLL Respiratory: chest non tender, clear to auscultation, normal breath sounds, no respiratory distress, no accessory muscle use Cardiac: regular rate and rhythm, no rub or gallop, no murmur, no edema, no jvd GI/: active bowel sounds, no abd pain or tenderness, soft, non distended Extremities: normal range of motion, normal strength, non tender Neuro/Psych: alert and oriented x 3, normal mood and affect, CN II - XII intact Skin: normal color, dry Results & Data Vital Signs (Past 12 Hours) Vital Signs Temp Pulse Resp BP BP Pulse Ox 10/28/18 14:17 114 H 108/57 L 10/28/18 14:15 101 H 112/75 10/28/18 14:14 98 H 105/70 10/28/18 07:36 36.7 C 100 H 19 101/75 90 PG Care Time/CCT Total # of Minutes Spent Total Time Spent with Patient: Total time spent is greater than 50% in coordination of care (as documented) at patient's floor/unit and/or counseling patient: (1) Leukocytosis Leukocytosis type: unspecified Qualified Code(s): D72.829 - Elevated white blood cell count, unspecified (2) Hypotension Hypotension type: unspecified hypotension type Qualified Code(s): I95.9 - Hypotension, unspecified (3) Pneumonia Laterality: left Lung location: lower lobe of lung Pneumonia type: due to unspecified organism Qualified Code(s): J18.1 - Lobar pneumonia, unspecified organism
--- NOTE | 2018-10-28 15:38 | Gastroenterology Progress Note ---
Date of Service October 28, 2018 Assessment & Plan (1) Esophageal thickening: none on EGD Fe def anemia--duodenal ulcers can explain LLQ pain--colo neg, trial Bentyl for bowel spasm intrahepatic duct dilation on CT--no RUQ pain to suggest biliary process and LFTS normal. Elective MRCP--told patient to get done as outpt sclerotic lesion on bone--EGD negative, colonoscopy neg--other w/u per hospitalist duodenal ulcers--continue PPI bid, stool for H.pylori neg I am going off service tomorrow 10/[address]reiber is assuming GI care then. Subjective cc f/u LLQ pain HPI Pt eating solid diet but complains of ongong LLQ pain. [place] to TI unremarkable yesterday. Review of Systems Respiratory: no dyspnea Cardiovascular: no chest pain Physical Exam Constitutional: WD/WN, vitals as above Respiratory: normal respiratory effort, lungs clear to auscultation Cardiovascular: RRR, no murmur, no edema Gastrointestinal (Abdomen): pos bs, soft, mild guarding LLQ , no rebound Psychiatric: A+Ox3, euthymic affect Results & Data Vital Signs (Past 12 Hours) Vital Signs Temp Pulse Resp BP BP Pulse Ox 10/28/18 14:17 114 H 108/57 L 10/28/18 14:15 101 H 112/75 10/28/18 14:14 98 H 105/70 10/28/18 07:36 36.7 C 100 H 19 101/75 90
[2018-10-28] MEDS: DICYCLOMINE HCL 10 MG CAP PO SCH ×2 (17:00→23:29)
[2018-10-28] MEDS: TRAZODONE HCL 100 MG TAB PO SCH (19:47)
[2018-10-28] MEDS: HEPARIN SOD 5,000 UNIT/0.5 ML VIAL SQ SCH (21:53)
[2018-10-29] MEDS: metroNIDAZOLE 500 MG/100 ML BAG IV SCH (05:45)
[2018-10-29] MEDS: HEPARIN SOD 5,000 UNIT/0.5 ML VIAL SQ SCH (05:46)
[2018-10-29] MEDS: OXYCODONE/ACETAMINOPHEN 5mg/325mg TAB PO PRN (06:36)
[2018-10-29 06:37] LABS: Hematocrit (blood only) 35.5 % (37-47); Hemoglobin 11.3 g/dL (12.0-16.0); Mean Corpuscular Hgb Conc 31.8 g/dL (32-36); Mean Corpuscular Volume 92.7 fL (80-100); Mean Platelet Volume 9.3 fL (7.4-10.4); Platelet Count 470 K/uL (130-400); RDW Coefficient of Variation 13.7 % (11.5-14.5); RDW Standard Deviation 46.6 fL (36.4-46.3); Red Blood Count 3.83 M/uL (4.2-5.4); White Blood Count 7.24 K/uL (4.8-10.8)
[2018-10-29 07:09] LABS: BUN Creatinine Ratio 21.3 (10-20); Calcium 8.8 mg/dl (8.5-10.1); Creatinine Clr Calc Pharmacy 82.2 ml/min; Est GFR (African American) 101.1; Est GFR (Non-African American) 87.2; Potassium 3.9 mmol/L (3.5-5.1)
[2018-10-29] MEDS: CIPROFLOXACIN 400 MG/200 ML BAG IV SCH (07:23)
[2018-10-29] MEDS: SUCRALFATE 1 GM/10 ML UDC PO SCH (07:32)
[2018-10-29] MEDS: NICOTINE 14 MG/24 HR PATCH TD SCH (08:18)
[2018-10-29] MEDS: ATORVASTATIN 40 MG TAB PO SCH (08:19)
[2018-10-29] MEDS: FOLIC ACID 1 MG TAB PO SCH (08:19)
[2018-10-29] MEDS: DOCUSATE SODIUM/SENNA 50/8.6MG TAB PO SCH (08:19)
[2018-10-29] MEDS: CYCLOBENZAPRINE HCL 10 MG TAB PO SCH (08:19)
[2018-10-29] MEDS: DICYCLOMINE HCL 10 MG CAP PO SCH (08:19)
[2018-10-29] MEDS: PANTOprazole 40 MG TAB PO SCH (08:19)
[2018-10-29] MEDS: THIAMINE HCL 100 MG TAB PO SCH (08:19)
[2018-10-29] MEDS: CITALOPRAM 40 MG TAB PO SCH (08:19)
[2018-10-29] MEDS: CHOLECALCIFEROL 1,000 UNITS TAB PO SCH (08:19)
[2018-10-29] MEDS: DOXYCYCLINE HYCLATE 100 MG CAP PO SCH (08:19)
--- NOTE | 2018-10-29 09:15 | Discharge Summary ---
Date of Service October 29, 2018 Admission HPI Per Admitting Provider For ERCP Principal Diagnosis Pneumonia, abdominal pain, duodenal ulcers Discharge Exam Constitutional WD/WN, vitals as above Respiratory normal respiratory effort, lungs clear to auscultation Cardiovascular RRR, no murmur, no edema Gastrointestinal (Abdomen) Inspection/Auscultation: abdomen normal to inspection and normal bowel sounds; abdomen not distended Percussion/Palpation: + abdomen tender (left lower quadrant with mild tenderness ) and abdomen soft; no guarding Musculoskeletal no cyanosis or clubbing, extremities motor strength 5/5 Skin no rashes, warm and dry Neurologic moves all extremities and awake Psychiatric A+Ox3, euthymic affect Discharge Data Allergies Allergy/AdvReac Type Severity Reaction Status Date / Time Penicillins Allergy Hives Unverified 10/21/18 10:36 Consultations 10/21/18 12:05 ED Decision to Admit Stat 10/23/18 09:25 Consult Gastroenterology Routine 10/23/18 09:30 Consult Vascular Surgery Routine Procedures Performed Operation Date: 10/24/18 09:30 Actual Procedures p Esophagogastroduodenoscopy - Ryan Susana Schreiber Operation Date: 10/27/18 09:00 Actual Procedures p Colonoscopy - Ryan Schreiber Ordered Studies 10/21/18 09:59 CT abd pelvis IV con only Stat 10/22/18 19:14 CT abd pelvis IV con only Urgent 10/26/18 18:12 US pelvic complete Routine US transvaginal Routine Hospital Course (1) Abdominal pain: This patient is a 57-year-old female with a history of smoking, benzodiazepine dependence, GERD, who presented with 2 days of worsening left lower quadrant pain as well as nausea and vomiting after being treated recently for an acute sinusitis with Levaquin. She also had been having a cough and some wheezing reportedly which had improved prior to admission. She was found to have a leukocytosis with a white blood cell count of 23 K, thrombocytosis in the 800s, acute kidney injury with creatinine of 1.6, and a p atchy groundglass consolidation in the left lower lobe on CT scan consistent with possible pneumonia. She was afebrile and lactate at the time of admission was 2.0. She was admitted and placed on IV Solu-Medrol, cefepime and vancomycin to treat for healthcare associated pneumonia. Leukocytosis initially significantly improved the day after admission down to 11 Her left lower quadrant pain got significantly worse on 10/22 and lactate became more elevated at 2.8. LFTs and BMP continue to be within normal limits. WBC count was back up to 14 but she also had received Solu-Medrol. A repeat CT scan of the abdomen/pelvis with IV contrast was performed on the evening of 10/22 which was reviewed with the reading radiologist on the phone-her celiac axis and SMA and YUN are clearly patent and there is no evidence of any ischemic bowel or abnormalities in the area of her pain. Her intrahepatic ducts were mildly dilated compared to previous, however she has normal LFTs and no right upper quadrant pain. She continued to have distal thoracic aorta intraluminal thrombus. Discussed the case with vascular surgeon on-call who recommended against anticoagulation at this time. Procalcitonin was negative Does have thickened bladder wall on CT-however, urinalysis is normal and not consistent with urinary tract infection. Uterus and adnexa appeared normal. Her antibiotics were switched to Cipro and Flagyl to cover for GI source of infection including colitis - completed 7 days of treatment Perhaps she had a mild ischemic colitis due to the previous hypotension upon admission which caused her lactate to become elevated, but not significant enough to cause changes on CT scan. Currently, her left lower quadrant pain is slightly improved but persists. She had a small amount of bright red blood per rectum on the second day of admission. She was initially not agreeable to a colonoscopy. Lactate has now returned to normal, LFTs and chemistry panel are normal, and her leukocytosis is now completely resolved. She remains afebrile. Was treated with a bowel prep to see if relieving her constipation would relieve her left lower quadrant pain-this did not relieve her pain - colonoscopy 10/27 - no acute process -antibiotics with IV Cipro and Flagyl to cover for GI source of infection-Day #8 - will discontinue for discharge -Continue to follow CBC, CMP -Provided Percocet as needed for pain control-will not discharge with narcotics - GI recommending trial of Bentyl for spasm, MRCP outpatient (2) Pneumonia: Left lower lobe patchy ground glass infiltrate and atelectasis seen on both CT scans of the abdomen/pelvis. Chest x-ray within normal limits. She is no longer really having any signs or symptoms of pneumonia at this time. She had been treated with a course of Levaquin just prior to admission and perhaps this is residual infiltrate radiographically. -Nonetheless, doxycycline to cover for pneumonia/Bronchitis-today is day #7 - will dc today -DC'd cefepime and vancomycin after day 1 as above, MRSA swab negative -Follow radiographically until resolution on imaging as she is a smoker and is at risk for lung cancer- this was discussed with the patient by Dr. Del Cid (3) COPD exacerbation: Apparently had shortness of breath and wheezing on admission which is now resolved -Discontinued the IV steroids Which were ordered on admission -PRN nebulizer treatments - has not required any this admission and has maintained normal saturations on room air, will not prescribe inhalers at this time but could consider a pulmonary consultation for PFT testing in the future if symptoms recur -encouraged smoking cessation (4) Acute kidney injury: Creatinine 1.6 upon admission likely secondary to prerenal state and dehydration from nausea and vomiting Creatinine now improved after receiving IV fluids (5) Hypotension: Was significantly hypotensive upon arrival in the ER with systolic blood pressure in the 60s which improved with IV fluid resuscitation Hypotension likely due to acute illness but was also taking both prazosin and clonidine as prescribed to her from her detox/rehab Perhaps this did lead to a mild ischemic colitis As above - gave 1L NSS bolus 8/6 for tachycardia with standing - patient's blood pressures not orthostatic but she did have a possible syncopal episode, dizziness resolved - treated with antibiotics as above -Attempts at restarting clonidine led to recurrent lightheadedness and soft blood pressures -will permanently discontinue clonidine due to side effects -We will continue to hold prazosin and consider restarting in the future as this helped her with her nightmares from PTSD (6) Admitted to substance misuse detoxification center: Recent detoxification from Xanax and a 30-day stay at a drug rehab center -Would not give any benzodiazepines here -Clonidine causes lightheadedness and low blood pressures-will not give this any further as above -Continue to hold home prazosin and consider restarting the future as above (7) Drug dependence: Benzodiazepine dependence as above, recently completed rehab (8) Bone lesion: A 3 mm sclerotic bone lesion visualized in the right ilium on CT of the abdomen/pelvis-to be considered metastatic lesion until proven otherwise -Radiology recommends mammogram and possibly nuclear bone scan-these can be done as an outpatient She did have a colonoscopy 2 years ago that was reportedly normal-now repeat colonoscopy She does have a left lower lobe groundglass opacity as above-could consider pulmonary malignancy-need to follow pulmonary imaging to resolution as above -Also has distal circumferential esophageal thickening noted on CT scan-does have a long history of GERD and smoking-she had an EGD here which only showed duodenal ulcers but no cancer -Appreciate GI consultation -Follow-up on this as an outpatient (9) Thrombocytosis: Platelets in the 800s on admission indicative of an acute phase reactant Continues to improve and is down to 400s - inflammatory state improving -Colonoscopy 10/27 as above (10) Leukocytosis: As above, WBC count significantly elevated at 23K on admission and has now normalized -Secondary to infection -blood cultures-No growth to date (11) Aortic mural thrombus: Distal descending thoracic aortic intraluminal thrombus seen. 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 and seen on the right renal artery on imaging Renal function is normal at this time Appreciate vascular surgery consultation-recommend nothing urgent at this time- recommend six-month follow-up ultrasound of the renal artery (13) Nausea & vomiting: Presented with nausea and vomiting Unclear etiology but perhaps due to abdominal pain, peptic ulcer disease -Now resolved (14) Anemia: Hemoglobin had decreased was likely somewhat hemo-dilutional, But is also iron deficient on labs Is normocytic, no gross bleeding from anywhere on history or on examination or on imaging Hemoccult stool negative -Ferritin is low normal at 39, transferrin saturation is low at 13%, B12 and folate are normal - EGD showed 2 duodenal ulcers that are not actively bleeding, however they may have had some microscopic bleeding -Check H. pylori stool antigen - negative - blood count has improved (15) Esophageal thickening: Noted distal circumferential esophageal thickening on CT scan -EGD without tumor in the esophagus (16) Peptic ulcer of duodenum: 2 ulcers seen in the duodenum on EGD here -Started Protonix 40 mg p.o. twice daily x2 months -Started Carafate 1 g p.o. before meals at bedtime -H. pylori stool antigen negative (17) Hypokalemia: Replaced with oral potassium and then was elevated, now improved to normal (18) DVT prophylaxis: heparin subq Dispo: custodial house in [place]. Will copy chart to send with her Total Time Total Time Spent Total Time Spent (In Minutes): greater than 30 minutes Discharge Plan Discharge Items Patient Disposition: Home - Self-Care Reason For Visit: HEALTHCARE [employer]OCI[employer] PNEUMONIA Discharge Diagnosis: Pneumonia, abdominal pain Discharge Goals: Decrease discomfort Activity: Resume your previous activity Non-emergency contact: Primary Care Provider Call non-emergency contact if: you have any medication questions, your symptoms worsen, your pain is not controlled and you have a fever Follow-up/Referrals: PCP,NO [Primary Care Provider] - Diet: Regular Addtl Provider Instructions: Please see a gastrointestinal specialist to obtain an MRCP to further investigate you gallbladder You should continue taking protonix and sucralfate for you duodenal ulcers. You will need to see a primary care provider within a week. Radiology recommends that you have mammogram and possibly nuclear bone scan outpatient due to a 3 mm sclerotic bone lesion visualized in the right ilium on CT of the abdomen/pelvis which may be an area of metastasis and needs to be further investigated. Please do not restart prazosin or clonidine as it may have contributed to your dizziness Additionally, you were seen by vascular surgery while you were here because of a blood clot found in your aorta - aortic mural thrombus. Vascular surgery does not think you need anticoagulation. You will need to continue taking clopidogrel (Plavix) which is an antiplatelet drug as well as the atorvastatin to prevent further clotting/plaque build up in your vasculature. Please see attached information on this medication A right renal artery aneurysm was also found incidentally on imaging. Your kidney function has been normal. Vascular surgery recommends a six-month follow- up ultrasound of the renal artery You will need follow up scans after resolution of your pneumonia due to finding of patchy ground glass opacities as you have risk factors for lung cancer due to smoking Prescriptions: New atorvastatin 40 mg Tablet 40 mg PO QAM Qty: 30 RF: 0 clopidogrel 75 mg Tablet 75 mg PO QAM Qty: 30 RF: 0 pantoprazole 40 mg Tablet,Delayed Release (Dr/Ec) 40 mg PO BID Qty: 60 RF: 0 dicyclomine 10 mg Capsule 10 mg PO QID Qty: 120 RF: 0 sucralfate [Carafate] 100 mg/mL suspension 5 ml PO QID Qty: 420 RF: 0 sennosides-docusate sodium [Senokot-S] 8.6-50 mg Tablet 1 tab PO BID Qty: 60 RF: 0 Continued cyclobenzaprine 10 mg tablet 10 mg PO DAILY RF: 0 ipratropium-albuterol 0.5 mg-3 mg(2.5 mg base)/3 mL solution for nebulization 3 ml inhalation DAILY PRN (Reason: copd) RF: 0 citalopram [Celexa] 40 mg Tablet 40 mg PO QAM RF: 0 thiamine HCl (vitamin B1) 100 mg Tablet 100 mg PO DAILY RF: 0 folic acid 1 mg Tablet 1 mg PO DAILY RF: 0 albuterol sulfate [Ventolin HFA] 90 mcg/actuation Hfa Aerosol Inhaler 1 puff INHALATION Q6H PRN (Reason: asthma) RF: 0 cholecalciferol (vitamin D3) 2,000 unit Capsule 2,000 unit PO BID RF: 0 Bengay Cold Therapy 5 % Gel 1 % TOPICAL DIRECTED PRN (Reason: Pain) RF: 0 trazodone 100 mg tablet 100 mg PO HS RF: 0 Discontinued clonidine HCl 0.1 mg tablet 0.1 mg PO HS RF: 0 prednisone 50 mg tablet 50 mg PO DAILY RF: 0 levofloxacin 500 mg tablet 500 mg PO DAILY PRN (Reason: bronchitis) RF: 0 prazosin 2 mg capsule 2 mg PO QAM RF: 0 Stand-Alone Forms: [facility]/Other Patient Handouts: Clopidogrel Bisulfate Oral tablet, Dicyclomine Hydrochloride Oral tablet Discharge Orders: Discharge Order (Routine); Ordered 10/29/18 Ordered By: Ruby Lopez Admission Data Admit Date/Time: 10/21/18 14:14 Attending Provider: Marquise Ko Admit Provider: Pascual Schrader Primary Care Provider: PCP,NO Other Providers: Pascual Schrader ; Ryan Schreiber Eugene J Service: Telemetry Medical Other Interventions: Discharge Summary Assessment (RN) Last Done: 10/24/18 13:06
== END 2018-10-29 10:02 | disposition home or self-care (01) | DRG 190 ==
LOC: ED 09:24 → 2W 14:14 → SUATTDRO 14:14 → 2W 16:23